=== PATIENT | female | born 1940 | race Caucasian/White ===

== ENCOUNTER → 2018-03-15 10:00 | Outpatient (CLI) | payer MEDICARE, SELFPAY | PROVIDERS: PCP Student in an Organized Health Care Education/Training Program; Visit Provider Nurse Practitioner Gerontology | DX: N31.9 Neuromuscular dysfunction of bladder, unspecified (principal); I10 Essential (primary) hypertension | CPT/HCPCS: 51705; 99213 ==

== ENCOUNTER → 2018-04-26 09:55 | Outpatient (BNVA) | payer MEDICARE, SELFPAY | PROVIDERS: Visit Provider Nurse Practitioner Gerontology | DX: N31.9 Neuromuscular dysfunction of bladder, unspecified (principal) | CPT/HCPCS: 51705; 99213 ==

== ENCOUNTER 2018-05-11 08:20 | Inpatient (IN) | payer MEDICARE, SELFPAY ==
[2018-05-11] VITALS (139 sets, daily range): BP systolic 88–142; BP diastolic 41–67; PULSE 59–94; RESP 3–31; TEMP 36.5–37.2; O2SAT 65–100
--- NOTE | 2018-05-11 08:17 | DI.CT_ITS ---
SYMPTOMS/DIAGNOSIS: APHASIA, ? CEREBROVASCULAR ACCIDENT CT BRAIN: Noncontrast examination was performed. There are no priors for comparison. The ventricles and sulci are consistent with the patient's age. There are areas of decreased attenuation in the white matter consistent with small vessel ischemic disease. No acute intracranial hemorrhage, infarct, midline shift or mass effect is identified. There is slight patient motion artifact. The visualized paranasal sinuses are clear. Mastoid air cells are well pneumatized. The calvarium is intact. IMPRESSION: No acute intracranial process. The findings were discussed with the Emergency Department on the date of the examination.
--- NOTE | 2018-05-11 09:00 | ED.GENADUL_ITS ---
Discharge Plan Disposition Condition: Good Discharge Details Chief Complaint: CVA/TIA Reason For Visit: ACUTE MENTAL STATUS CHANGE;UTI;R/O CVA Admit Date/Time: 05/11/18 18:20 Admit Provider: Wild Ledezma Attending Provider: Wild Ledezma Primary Care Provider: Opal Dejesus ED Provider: Rachel Elder Discharge Instructions Activity:: Activity as Tolerated Equipment/Supplies:: No Equipment Needed Diet:: Low Sodium Discharge Orders Discharge Orders: Discharge Order (Routine); Ordered 05/13/18 Ordered By: Patrica Patel Discharge Data Discharge Date/Time-TO BE ENTERED AT DEPARTURE: 05/11/18 20:05 Medical Decision Making Eva Bonilla is a 77 y/o woman with h/o MS and neurogenic bladder with suprapubic catheterwho presented to the emergency department with altered mental status since last night. On my exam Pt is somnolent but arouses to voice and gives mostly appropriate answers to questions. Motor is 1/5 throughout on my exam, however her states that she has moved both arms several times this morning. Concern for CVA vs infection vs metabolic/electrolyte disturbance vs other. Paricular concern for UTI given 's report that Pt had same symptoms with UTI in the past. Doubt meningitis. Exam/hx not c/w PE, ACS, acute aortic pathology. Plan for EKG, CT head, UA, CXR, screening labs, IVF, telemetry. Will monitor and reassess. UA concerning for infection. Will treat with broad spectrum abx at this time. Pt with mild improvement in symptoms, stays awake for longer and using full sentences when speaking to family. Continues to be excessively somnolent. Plan for admission for further eval/treatment, stroke eval. No beds available at [facility]. Contacted [facility], [facility], [place], [place], [place], [facility], [place], [facility] [place] [facility], [facility]. Refusal at all hospitals 2/2 no appropriate bed availability. Pt accepted at [facility], awaiting bed assignment. While awaiting bed assignment at [facility], bed became available here. Clinical Impression: UTI, AMS Disposition: [facility] inpatient Medical Records Medical records reviewed: Yes I reviewed the patient's medical records. Imaging Data Radiologic Study: Attestation: I personally reviewed and interpreted this imaging study as follows: Radiologist's impression: CHEST X-RAY, PORTABLE AP VIEW: No priors. The heart size and pulmonary vasculature are within normal limits. No focal infiltrates, effusions or pneumothoraces are identified. Degenerative changes are seen in the shoulders bilaterally and the thoracic spine. IMPRESSION: No definite acute pulmonary process. CT head negative per verbal report from radiology Lab Data Lab results reviewed: Yes I reviewed the patient's lab results. ECG Data Attestation: I personally reviewed and interpreted this ECG (s) as follows: Interpretation: NSR at 71 with nl axis, no acute ischemic changes, no STEMI, non -diagnostic EKG HPI General Mode of arrival: EMS . Date/Time Provider Initiated Documentation: 05/11/18 08:31 . Limitations to Documentation: altered mental status . Information obtained by: patient, family, RN notes reviewed and old records reviewed . HPI Narrative: Eva Bonilla is a 77 y/o woman with h/o multiple sclerosis, neurogenic bladder with suprapubic catheter who presents to the emergency department with altered mental status. Her accompanies her, and he reports that Pt is wheelchair bound at baseline, but uses her arms without issue and has no cognitive deficit. He reports that last night around 6 or 7pm Pt became atypically sleep for her and was less responsive during conversation. When he awoke this morning, Pt's symptoms had worsened, where she was falling asleep quickly and giving one word answers to questions. This is her state at presentation to the ED. She denies pain or any other symptoms, but is altered and cannot provide other history. reports that Pt seemed to be moving arms equally before bed last night after her symptoms had started. He notes that in the past she had similar symptoms 2/2 UTI. Prior to last evening she was in her usual state of health. Eating and drinking normally, no recent travel , no recent illnesses. Related Data Home Medications Medication Instructions Recorded Confirmed ascorbic acid (vitamin C) 500 mg PO BID 11/11/12 05/19/18 [id number] C-Mn 1 ea PO BID cap 11/28/13 05/19/18 [Glucosamine 1500 Complex] Protien Powder 2 tbs PO TID 04/09/17 05/19/18 aspirin 325 mg PO HS 05/11/18 05/19/18 baclofen 30 mg PO TID 05/11/18 05/19/18 cyanocobalamin (vitamin B-12) 1,000 mg PO DAILY 05/11/18 05/19/18 [Vitamin B-12] docusate sodium [Colace] 300 mg PO HS 05/11/18 05/19/18 furosemide 20 mg PO DAILY@1200 05/11/18 05/19/18 gabapentin 100 mg PO BID 05/11/18 05/19/18 gabapentin 200 mg PO HS 05/11/18 05/19/18 multivitamin 1 tab PO DAILY 05/11/18 05/19/18 oxybutynin chloride 15 mg PO HS 05/11/18 05/19/18 pravastatin 20 g PO HS 05/11/18 05/19/18 Lactobacillus acidophilus 1,000 mmu cells PO TID #90 cap 05/13/18 05/19/18 calcium carbonate-vitamin D3 1 tab PO BID 05/13/18 05/19/18 [Caltrate 600 + D] metoprolol tartrate 12.5 mg PO BID #30 tab 05/13/18 05/19/18 Previous Rx's Medication Instructions Recorded Lactobacillus acidophilus 1,000 mmu cells PO TID #90 cap 05/13/18 metoprolol tartrate 12.5 mg PO BID #30 tab 05/13/18 Allergies Allergy/AdvReac Type Severity Reaction Status Date / Time lisinopril AdvReac Severe cough/wheez Verified 05/19/18 10:13 ing Iodine and Iodide Containing AdvReac Intermediate redness Verified 05/19/18 10: 13 Produc pregabalin [From Lyrica] AdvReac whoosy Verified 05/19/18 10:13 reported 04/2017 iodine Allergy Uncoded 05/19/18 10:13 Review of Systems Review of Systems Pt cannot provide ROS 2/2 altered mental status. ROS are per her : Constitutional: denies fevers Eyes: denies eye pain ENT: denies facial pain, dental pain, sore throat Cardiovascular: denies chest pain, edema Respiratory: denies SOB, cough GI: denies abdominal pain, vomiting, diarrhea : denies flank pain MSK: denies back pain, neck pain, arthralgias, myalgias Skin: denies rash Neuro: denies headaches, lightheadedness, weakness Unobtainable due to mental condition PFSH Family History Mother Congestive heart failure Father Meningitis Paternal Grandmother Breast cancer Sister Skin cancer (melanoma) Medical History Hypertension (Chronic) Multiple sclerosis (Chronic) Tubular adenoma (Acute) Hyperlipemia (Acute) Social History household members: spouse lives independently: Yes number of children: 2 current occupational status: retired Smoking/Tobacco Use Status: Never alcohol intake: never substance use type: does not use seatbelt use: always water heater temp set < 120 deg: Yes working smoke detector in home: Yes fire extinguisher in home: Yes carbon monox detector in home: Yes firearms in home: Yes Surgical History incision and drainage (03/23/18) Exam Narrative Exam Narrative: Constitutional: somewhat ill-appearing, somnolent but arouses easily to voice, pleasant when awoken HENT: head atraumatic, normocephalic normal inspection, mucous membranes moist Eyes: conjunctiva normal, sclera normal, pupils 3mm b/l Neck: no stridor, normal ROM, trachea midline Chest: normal inspection Resp: normal work of breathing, LCTAB Cardio: normal rate, normal rhythm, no murmur appreciated GI: abdomen soft, non-tender, non-distended. suprapubic catheter in place, no erythema or surrounding drainage Back: normal inspection, no rash Skin: warm, dry, normal color, no rash Neuro: somnolent, arouses to voice, does not follow commands, responds to questions with one word answers or simple sentences before falling asleep. Gag intact. Motor 1/5 throughout. Ext: no edema Course Lab/Test Results Lab/Test Results: 05/11/18 08:53 Blood Blood Culture - Pending 05/11/18 08:53 Blood Blood Culture - Pending
[2018-05-11 09:04] LABS: Abs Immature Grans 0.03 k/cumm (0.0-0.09); Absolute Lymphocyte Count 1.14 k/cumm (1.2-3.4); Absolute Monocyte Count 1.14 k/cumm (0.11-0.7); Basophils % 0.2; HCT 40.8 % (36.0-46.0); HGB 13.3 g/dL (12.0-15.5); Immature Grans % 0.2; Lymphocytes % 6.3; Mean Corp. HGB Concentration 32.6 g/dL (32.0-36.0); Mean Corpuscular Hemoglobin 30.5 pg (27.0-33.0); Mean Corpuscular Volume 93.6 fL (80-95); Mean Platelet Volume 10.7 fL (8.0-11.0); Monocytes % 6.3; Platelet Count 231 x1000/uL (130-400); RBC 4.36 m/cumm (4.00-5.20); White Blood Cell Count 18.16 k/cumm (4.4-10.8)
[2018-05-11 09:12] LABS: Absolute Basophil Count 0.04 k/cumm (0.0-0.2)
[2018-05-11 09:15] LABS: Prothrombin Time 10.1 sec (9.3-10.8)
[2018-05-11 09:28] LABS: ALT 20 U/L (12-78); AST 22 U/L (15-37); Albumin 2.9 g/dL (3.4-5.0); Alkaline Phosphatase 110 U/L (46-116); BUN 17 mg/dL (7-18); Bilirubin, Total 0.4 mg/dL (0.2-1.0); CREATININE 1.24 mg/dL (0.55-1.02); Calcium 9.1 mg/dL (8.5-10.1); Chloride 103 mmol/L (98-107); Estimated GFR 41.94 (mL/min/1.73m2); Glucose 135 mg/dL (70-100); Sodium 141 mmol/L (136-145); Total Protein 6.6 g/dL (6.4-8.2); Troponin I < 0.02 ng/mL (0.00-0.06)
[2018-05-11 09:31] LABS: TSH (W/Ref FT4) 0.76 uIU/mL (0.358-3.74)
[2018-05-11 09:32] LABS: Bilirubin Negative (Negative); Blood Moderate (Negative); Clarity Cloudy; Glucose Negative (Negative); Ketones Negative (Negative); Leukocyte Esterase Small (Negative); Nitrite Negative (Negative); Specific Gravity 1.025 (1.005-1.025); Urobilinogen 0.2 EU/dL (Up TO 0.2); pH 5.5 (5-8)
--- NOTE | 2018-05-11 09:38 | DI.RAD_ITS ---
SYMPTOMS/DIAGNOSIS: ALTERED MENTAL STATE CHEST X-RAY, PORTABLE AP VIEW: No priors. The heart size and pulmonary vasculature are within normal limits. No focal infiltrates, effusions or pneumothoraces are identified. Degenerative changes are seen in the shoulders bilaterally and the thoracic spine. IMPRESSION: No definite acute pulmonary process.
[2018-05-11 09:40] LABS: WBC >50 HPF (0-5)
[2018-05-11 09:41] LABS: Bacteria Packed HPF (Negative); C & S Indicated? Yes
[2018-05-11] MEDS: CEFEPIME 2 GM in Normal Saline 100 ML IVPB (09:50)
[2018-05-11] MEDS: Normal Saline 500 ML IV (10:53)
[2018-05-11] MEDS: VANCOMYCIN 1,500 MG in Normal Saline 500 ML 333.3333 MG IVPB (11:00)
[2018-05-11] MEDS: Normal Saline 1,000 ML 150 ML IV (18:15)
[2018-05-11 19:10] LABS: Lactate-non-spesis 0.7 mmol/L (0.6-1.4)
[2018-05-11] MEDS: Lactated Ringers 1,000 ML 100 ML IV (21:03)
--- NOTE | 2018-05-11 21:04 | W.PM.HP.N ---
Date of service: 05/11/18 Time of Service: 21:04 Assessment and Plan (1) UTI (urinary tract infection): Current visit: Yes Status: Acute Continue vancomycin and cefepime started in the emergency room. Check urine and blood culture results of modified antibiotics based on culture sensitivities. I will asked Dr. Cancino to see the patient in the morning to change out her suprapubic catheter. (2) Neurogenic bladder: Current visit: Yes Status: Chronic Consult with urologist, Dr. Jose Martin Cancino, in the morning to change out suprapubic catheter. (3) Change in mental status: Current visit: Yes Status: Acute Her mental status appears to be improving over the course of today since initiation of IV fluids and antibiotics. I suspect that she had impending sepsis from UTI. Her elevated lactate is already resolved. His lungs are mental status continues to improve overnight back to her baseline and I do not feel that MRI is necessary. However if any doubt remains as to whether or not she had a TIA or CVA then performing an MRI of the brain is an option to document any cerebrovascular event. Since it does not appear clinically that she had a CVA I have not ordered other studies such as echocardiogram or carotid Doppler at this point. History of Present Illness Chief Complaint: acute mental status change Narrative: 77-year-old female with a past medical history of multiple sclerosis leading to neurogenic bladder requiring suprapubic catheter presents emergency department with acute mental status change that began last night and continued into this morning. History is obtained from review of the chart as well as my conversation with Dr. Pato Elder, emergency room physician. Patient cannot give an accurate history and her family is no longer present. According to Dr. Elder the patient had been in her usual state of health until around 6 or 7 PM last night when her noticed that she was much more sleepy but she was arousable however this morning patient was not able to answer the appropriately and was very difficult to arouse. According to Dr. Elder she was able to awaken the patient the patient would give simple 1 word answers but then drifts back to sleep and not able to follow any commands. According to Dr. Elder the patient's normally nonambulatory because of her multiple sclerosis causing her loss of the use of her lower extremities as well as her neurogenic bladder. However normally the patient has use of both upper extremities and according to Dr. Elder she was flaccid. Workup for possible CVA was performed including a noncontrast CT scan of her head which showed no acute changes but shows small vessel white matter abnormalities consistent with small vessel ischemic changes. Laboratory workup revealed a leukocytosis of 18,000, mild elevation in her blood lactate at 2.0. And a mild elevation in her serum creatinine at 1.24. Her urinalysis demonstrated proteinuria, pyuria, hematuria. Chest x-ray showed no acute cardiopulmonary abnormalities. Treatment in the emergency room include obtaining blood and urine cultures and initiation of parenteral antibiotics including cefepime and vancomycin. Patient is now admitted for IV fluids and parenteral antibiotics along with frequent monitoring of her vital signs and neurologic status. Initially it was felt that she may require further stroke workup including MRI scan of the brain in the morning however the patient is much more coherent this evening and shows no focal facial motor deficits nor any upper extremity motor deficits. Review of Systems Review of Systems Unobtainable due to mental status (Although the patient is now more coherent and able to give me simple answers she is not oriented to person place or circumstance and she gives inappropriate answers to my questions. She seems to perseverate on certain words or phrases.) [facility] Family History Mother Congestive heart failure Father Meningitis Paternal Grandmother Breast cancer Sister Skin cancer (melanoma) Medical History Hypertension (Chronic) Multiple sclerosis (Chronic) Tubular adenoma (Acute) Hyperlipemia (Acute) Social History household members: spouse lives independently: Yes number of children: 2 current occupational status: retired Smoking/Tobacco Use Status: Never alcohol intake: never substance use type: does not use seatbelt use: always water heater temp set < 120 deg: Yes working smoke detector in home: Yes fire extinguisher in home: Yes carbon monox detector in home: Yes firearms in home: Yes Surgical History incision and drainage (03/23/18) Meds Home Medications Medication Instructions Recorded Confirmed Type ascorbic acid (vitamin C) 500 mg PO BID 11/11/12 04/26/18 History aspirin 325 mg PO DAILY tab 11/11/12 04/26/18 History baclofen 30 mg PO TID 11/11/12 04/26/18 History cyanocobalamin (vitamin B-12) 1,000 mcg PO DAILY 11/11/12 04/26/18 History [Vitamin B-12] docusate sodium [Colace] 100 mg PO DAILY tab 11/11/12 04/26/18 History multivitamin [Multi-Day] 1 ea PO DAILY 11/11/12 04/26/18 History [id number] C-Mn 1 ea PO BID cap 11/28/13 04/26/18 History [Glucosamine 1500 Complex] Protien Powder 2 tbs PO TID 04/09/17 04/26/18 History gabapentin [Neurontin] 100 mg PO TID PRN #90 tab 04/09/17 04/26/18 History oxybutynin chloride 15 mg PO DAILY #90 tab-cap 09/07/17 04/26/18 Rx furosemide 20 mg PO DAILY #90 tab 11/05/17 04/26/18 Rx pravastatin 20 mg PO DAILY #90 tab 03/25/18 04/26/18 Rx oxycodone 5 mg tablet 5 mg PO PRN tab 04/28/18 History ascorbic acid (vitamin C) [Vitamin 2,000 mg PO DAILY 05/11/18 05/11/18 History C] aspirin 325 mg PO DAILY 05/11/18 05/11/18 History baclofen 30 mg PO TID 05/11/18 05/11/18 History calcium carbonate [Calcium 600] 1 tab PO DAILY 05/11/18 05/11/18 History cyanocobalamin (vitamin B-12) 1,000 mg PO DAILY 05/11/18 05/11/18 History [Vitamin B-12] docusate sodium [Colace] 100 mg PO DAILY 05/11/18 05/11/18 History furosemide 20 mg PO DAILY 05/11/18 05/11/18 History gabapentin 100 mg PO BID 05/11/18 05/11/18 History gabapentin 200 mg PO .QHS 05/11/18 05/11/18 History glucosamine sulfate [Glucosamine] 3,000 mg PO DAILY 05/11/18 05/11/18 History multivitamin 1 tab PO DAILY 05/11/18 05/11/18 History oxybutynin chloride 15 mg PO DAILY 05/11/18 05/11/18 History pravastatin 20 g PO DAILY 05/11/18 05/11/18 History Allergies Allergy/AdvReac Type Severity Reaction Status Date / Time lisinopril AdvReac Severe cough/wheez Verified 05/11/18 10:12 ing Iodine and Iodide Containing AdvReac Intermediate redness Verified 05/11/18 10:12 Produc pregabalin [From Lyrica] AdvReac whoosy Verified 05/11/18 10:12 reported 04/2017 iodine Allergy Uncoded 05/11/18 10:12 Exam Const General: healthy appearing, no acute distress, well developed and well groomed Nutritional Appearance: well nourished Orientation: alert, awake, not oriented x3 and confused HENMS Head: normal to inspection Ears: external ears normal General nose exam: external nose normal Face and sinus: normal facial exam Mouth: oral mucosae normal Eyes General: appearance normal, both eyes and all related structures Alignment and Position: alignment normal and position normal Periorbital: periorbital findings normal Eyelids: eyelids normal Conjunctivae: conjunctivae normal Sclera: sclerae normal Cornea: corneas normal Pupils: PERRL EOM: EOM intact bilaterally Neck Neck: normal visual inspection, full ROM, no lymphadenopathy, no meningeal signs and trachea midline Thyroid: thyroid normal Carotids: normal carotid upstroke Lymphatic: no lymphadenopathy noted Resp Effort & Inspection: normal respiratory effort and able to speak in complete sentences Auscultation: clear to auscultation bilaterally Cardio Jugular venous pressure: no JVD Palpation: normal PMI Rate: regular rate Rhythm: regular rhythm Heart Sounds: S1 normal, S2 normal, no murmurs and no rubs Bruits: no abdominal aortic bruits and no carotid bruits Pulses: brachial pulses present, radial pulses present, posterior tibial pulses present, dorsalis pedis pulses present and normal peripheral pulses GI Inspection: normal to inspection Palpation: soft and no hepatosplenomegaly Percussion: normal to percussion Auscultation: normal bowel sounds General: other (Suprapubic catheter present and draining cloudy yellow urine. 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) Motor: strength 5/5 throughout (Normal hand log clerk strength forearm strength in upper arm strength in both arms and hands) Sensory Exam: no sensory deficits noted Extrem General: normal capillary refill Right upper extremity: normal to inspection, full ROM and normal capillary refill Left upper extremity: normal to inspection, full ROM and normal capillary refill Right lower extremity: normal to inspection and normal capillary refill; ROM limited and no edema Left lower extremity: normal to inspection and normal capillary refill; abnormal ROM and no edema Psych Appearance: grossly normal and well kempt Speech and Movement: speech and movement normal Mood: euthymic mood Affect: normal affect Attitude: cooperative Thought Process: loose association and perseverating Thought Content: ideas of reference Results Imaging Chest x-ray: report reviewed (No definite acute pulmonary process) Imaging Studies: Of the brain performed May 11, 2018 at 8:41 AM showed no acute intracranial process. Labs : 05/11/18 08:55 05/11/18 08:55 Laboratory Results - last 24 hr 05/11/18 05/11/18 05/11/18 08:55 08:55 08:55 WBC RBC Hgb Hct MCV MCH MCHC RDW Plt Count MPV Immature Gran % Neutrophils % Lymphocytes % Monocytes % Eosinophils % Basophils % Absolute Neutrophils Absolute Lymphocytes Absolute Monocytes Absolute Eosinophils Absolute Basophils PT 10.1 INR 1.0 Sodium 141 Potassium 4.0 Chloride 103 Carbon Dioxide 28.0 Anion Gap 10.0 BUN 17 Creatinine 1.24 H Estimated GFR/1.73 m2 41.94 Glucose 135 H Lactate 2.0 H Calcium 9.1 Total Bilirubin 0.4 AST 22 ALT 20 Alkaline Phosphatase 110 Troponin I < 0.02 Total Protein 6.6 Albumin 2.9 L TSH Urine Color Urine Clarity Urine pH Ur Specific [place] Urine Protein Urine Ketones Urine Blood Urine Nitrite Urine Bilirubin Urine Urobilinogen Ur Leukocyte Esterase Urine RBC Urine WBC Ur Epithelial Cells Urine Crystals Urine Bacteria Urine Mucus Ur Culture Indicated? Urine Glucose 05/11/18 05/11/18 05/11/18 08:55 08:58 09:25 WBC 18.16 H RBC 4.36 Hgb 13.3 Hct 40.8 MCV 93.6 MCH 30.5 MCHC 32.6 RDW 14.0 Plt Count 231 MPV 10.7 Immature Gran % 0.2 Neutrophils % 87.0 Lymphocytes % 6.3 Monocytes % 6.3 Eosinophils % 0.0 Basophils % 0.2 Absolute Neutrophils 15.80 H Absolute Lymphocytes 1.14 L Absolute Monocytes 1.14 H Absolute Eosinophils 0.00 Absolute Basophils 0.04 PT INR Sodium Potassium Chloride Carbon Dioxide Anion Gap BUN Creatinine Estimated GFR/1.73 m2 Glucose Lactate Calcium Total Bilirubin AST ALT Alkaline Phosphatase Troponin I Total Protein Albumin TSH 0.76 Urine Color Yellow Urine Clarity Cloudy Urine pH 5.5 Ur Specific [place] 1.025 Urine Protein 100 H Urine Ketones Negative Urine Blood Moderate H Urine Nitrite Negative Urine Bilirubin Negative Urine Urobilinogen 0.2 Ur Leukocyte Esterase Small H Urine RBC Not Applicable Urine WBC >50 Ur Epithelial Cells Not Applicable Urine Crystals Not Applicable Urine Bacteria Packed Urine Mucus Not Applicable Ur Culture Indicated? Yes Urine Glucose Negative 05/11/18 19:05 WBC RBC Hgb Hct MCV MCH MCHC RDW Plt Count MPV Immature Gran % Neutrophils % Lymphocytes % Monocytes % Eosinophils % Basophils % Absolute Neutrophils Absolute Lymphocytes Absolute Monocytes Absolute Eosinophils Absolute Basophils PT INR Sodium Potassium Chloride Carbon Dioxide Anion Gap BUN Creatinine Estimated GFR/1.73 m2 Glucose Lactate 0.7 Calcium Total Bilirubin AST ALT Alkaline Phosphatase Troponin I Total Protein Albumin TSH Urine Color Urine Clarity Urine pH Ur Specific [place] Urine Protein Urine Ketones Urine Blood Urine Nitrite Urine Bilirubin Urine Urobilinogen Ur Leukocyte Esterase Urine RBC Urine WBC Ur Epithelial Cells Urine Crystals Urine Bacteria Urine Mucus Ur Culture Indicated? Urine Glucose Last Vital Signs Temp 36.5 C 05/11/18 09:02 Pulse 92 H 05/11/18 19:46 Resp 16 05/11/18 19:50 BP 132/53 L 05/11/18 19:46 Pulse Ox 97 05/11/18 19:50
[2018-05-11] MEDS: Enoxaparin 30 MG/0.3 ML SYR SC (21:16)
[2018-05-12] VITALS (72 sets, daily range): BP systolic 127–167; BP diastolic 52–95; PULSE 81–110; RESP 3–29; TEMP 37.2–38.4; O2SAT 91–99
[2018-05-12] MEDS: CEFEPIME 2 GM in Normal Saline 100 ML IVPB ×2 (00:10→12:47)
--- NOTE | 2018-05-12 07:09 | DI.US_ITS ---
SYMPTOMS/DIAGNOSIS: UTI, INDWELLING SUPRAPUBIC CATHETER, ? PYELONEPHRITIS RENAL ULTRASOUND: There are no prior comparison exams. The kidneys are normal in size and echogenicity and show normal parenchymal thickness. There is no evidence of hydronephrosis or perinephric collection. There is an echogenic focus in the mid right kidney consistent with a nonobstructing stone. There are two questionable small echogenic foci in the left kidney, which could represent vascular calcifications versus nonobstructing calculi. Two small cysts are seen at the upper pole of the left kidney. A Mcbride catheter is present in the bladder. The bladder is empty and not evaluated. IMPRESSION: Nonobstructing stone in the mid right kidney. Question of a few small nonobstructing stones in the mid left kidney. There is no evidence of hydronephrosis.
[2018-05-12 07:28] LABS: Abs Immature Grans 0.03 k/cumm (0.0-0.09); Absolute Basophil Count 0.02 k/cumm (0.0-0.2); Absolute Eosinophil Count 0.03 k/cumm (0.0-0.7); Absolute Monocyte Count 0.56 k/cumm (0.11-0.7); Absolute Neutrophil Count 10.45 k/cumm (1.2-6.7); Basophils % 0.2; Eosinophils % 0.3; HCT 37.5 % (36.0-46.0); HGB 12.2 g/dL (12.0-15.5); Immature Grans % 0.3; Lymphocytes % 4.3; Mean Corp. HGB Concentration 32.5 g/dL (32.0-36.0); Mean Corpuscular Hemoglobin 30.7 pg (27.0-33.0); Mean Corpuscular Volume 94.5 fL (80-95); Mean Platelet Volume 11.4 fL (8.0-11.0); Monocytes % 4.8; Neutrophils % 90.1; Platelet Count 198 x1000/uL (130-400); RBC 3.97 m/cumm (4.00-5.20); RBC Distribution Width 14.2 % (11.7-14.6)
[2018-05-12] MEDS: Lactated Ringers 1,000 ML 100 ML IV (07:35)
[2018-05-12 07:48] LABS: Anion Gap 10.2 mmol/L (3-11); BUN 22 mg/dL (7-18); CO2 24.8 mmol/L (21.0-32.0); CREATININE 0.74 mg/dL (0.55-1.02); Chloride 107 mmol/L (98-107); Glucose 122 mg/dL (70-100); Potassium 3.6 mmol/L (3.5-5.1); Sodium 142 mmol/L (136-145)
[2018-05-12] MEDS: VANCOMYCIN 1,000 MG in Normal Saline 250 ML 166.667 MG IVPB ×2 (08:49→19:44)
[2018-05-12] MEDS: Glucosamine 500 MG CAP 3000 MG PO (09:11)
[2018-05-12] MEDS: Oxybutynin 5 MG TAB 15 MG PO (09:12)
[2018-05-12] MEDS: Aspirin 325 MG TAB PO (09:12)
[2018-05-12] MEDS: Calcium Carbonate 1.5 GM TAB PO (09:12)
[2018-05-12] MEDS: Docusate Sodium 100 MG CAP 300 MG PO (09:13)
[2018-05-12] MEDS: Multivitamin TAB 1 TAB PO (09:14)
[2018-05-12] MEDS: Ascorbic Acid 500 MG TAB 2000 MG PO (09:14)
[2018-05-12] MEDS: Baclofen 10 MG TAB 30 MG PO ×3 (09:15→19:44)
[2018-05-12] MEDS: Gabapentin 100 MG CAP PO ×2 (09:15→15:57)
[2018-05-12] MEDS: Cyanocobalamin 500 MCG TAB 1000 MCG PO (09:15)
--- NOTE | 2018-05-12 09:44 | PHARADMIT ---
Admission Pharmacy Clinical Review ACUTE MENTAL STATUS CHANGE, UTI-?sepsis, R/O CVA Code Status Full Code Current Weight 84.7 kg Renally Cleared and Narrow Therapeutic Index Meds CrCl~44ml/min (Vanco dosing) QTc Value / Action Taken BP Control, Fever BP 150/66 HR 98 Afebrile Electrolytes reviewed lytes ok DVT Prophylaxis Aspirin 325mg daily, Lovenox 325mg Opiate Usage / Scheduled Bowel Regimen Ordered none Plt/SCr for Heparin / Enoxaparin Plt 198 SCr improved 0.74 INR for Warfarin INR 1.0 H/H stable, WBC/Bands H/H 12.2/37.5 WBC 11.60 (down from 18.16) Antibiotic appropriateness Vanco 1500mg x 1 in ED ~ 11am 05/11/18, Cefepime x1 Vanco 1000mg Q12h per kinetics, Cefepime continues renally adjusted Cultures and Sensitivities BC & Urine pending Surgical ABX d/c within 24 hr DM control / Insulin Dosing BG 122 Heart Failure (Check EF%) (CHRISTELLE's, B-Block, Diuretics) none IV to PO Switch Home Meds Reviewed Oxybutynin 15mg daily...should this be XL?...YES, error from home med list, should be XL, fixed but patient did receive one dose of immed.release Home Meds Not Ordered Willie Comments Urology consult-has suprapubic catheter, has Mult.Sclerosis r/o stroke, MRI not ordered, mental status cleared after IV fluids and Anbx Speech consult, PT consult Chest Xray negative
--- NOTE | 2018-05-12 10:26 | PDOC.CMIN ---
Care Management Initial Assess REASON FOR HOSPITALIZATION:: UTI, acute mental status change, R/O CVA PAST MEDICAL HISTORY/PAST SURGICAL HISTORY:: Medical: HTN, MS, tubular adenoma, hyperlipidemia, neurogenic bladder, osteopenia, colon polyps. Surgical: clair cataract removal, hysterectomy, bladder surgery, colonoscopy, cervical rib removal. PREVIOUS FUNCTIONAL STATUS/SOCIAL/FAMILY SUPPORTS:: Eva is 77 yo woman who lives with her Dequan in their home in [place]. They have 2 adult children, 5 grandchildren and 1 great grandchild all of whom live locally. 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 is her primary caregiver and assists with all her ADL's. She does not ambulate and uses w/c to get around. CURRENT FUNCTIONAL STATUS:: She is lying in bed in ICU when CM enters. is present and states she is much improved over yesterday. She easily engages in discussion re plans and is able to answer questions appropriately. ADVANCE DIRECTIVES:: They have document at home and are working on it. Has patient been provided with information about the portal?: Yes Did the patient sign up for the portal?: No CODE STATUS:: Full Code INSURANCE COVERAGE / FINANCIAL ISSUES:: Medicare. AARP CURRENT HOME/COMMUNITY SERVICES/EQUIPMENT:: Just recently started services. Has hospital bed, siderails, raised toilet seat, ramp and w/c for home use. There is walk-in shower. PRIMARY CARE PHYSICIAN:: Oapl Dejesus MD POTENTIAL DISCHARGE NEEDS:: Will need to continue current level of services on d/c. Patient and are pleased with current services. Will also need to follow-upp with PCP as directed. PATIENT/FAMILY EDUCATION NEEDS:: Review d/c instructions re meds and activity levels, Ask me Now discussion. ANTICIPATED BARRIERS TO DISCHARGE:: none identified TRANSPORTATION:: via car with PLAN:: d/c home as per MD with current services from .
--- NOTE | 2018-05-12 11:35 | W.UROLOGYCON ---
Date of service: 05/12/18 Time of Service: 10:00 History of Present Illness Chief Complaint: Neurogenic bladder Narrative: This is a 77-year-old woman who has a history of multiple sclerosis. She was having urinary incontinence. She was treated with a pubovaginal sling and placement of a suprapubic tube. She has been having her the tube changed every 3-4 weeks. Remarkably, she is only had one prior episode of urosepsis. She came into the hospital yesterday with fevers and mental status changes. Her urine cultures and blood cultures are still pending. She has clinically improved with antibiotics and hydration. We have been asked to change her catheter while she is here [facility] Family History Mother Congestive heart failure Father Meningitis Paternal Grandmother Breast cancer Sister Skin cancer (melanoma) Medical History Hypertension (Chronic) Multiple sclerosis (Chronic) Tubular adenoma (Acute) Hyperlipemia (Acute) Social History household members: spouse lives independently: Yes number of children: 2 current occupational status: retired Smoking/Tobacco Use Status: Never alcohol intake: never substance use type: does not use seatbelt use: always water heater temp set < 120 deg: Yes working smoke detector in home: Yes fire extinguisher in home: Yes carbon monox detector in home: Yes firearms in home: Yes Surgical History incision and drainage (03/23/18) Exam Narrative Exam Narrative: The patient was seen in the intensive care unit. Her indwelling suprapubic tube was removed. The abdomen was prepped and a new 16 Romansh catheter was passed through the suprapubic tract into the bladder. The catheter balloon was inflated with 10 cc of sterile water. The catheter was hooked to gravity drainage. The patient tolerated this procedure well. Results Last Vital Signs Temp 37.4 C 05/12/18 08:30 Pulse 97 H 05/12/18 08:30 Resp 19 05/12/18 08:30 BP 160/72 H 05/12/18 08:30 Pulse Ox 97 05/12/18 08:30 Labs : 05/12/18 06:15 05/12/18 06:15 Laboratory Results - last 24 hr 05/11/18 05/12/18 05/12/18 19:05 06:15 06:15 WBC 11.60 H D RBC 3.97 L Hgb 12.2 Hct 37.5 MCV 94.5 MCH 30.7 MCHC 32.5 RDW 14.2 Plt Count 198 MPV 11.4 H Immature Gran % 0.3 Neutrophils % 90.1 Lymphocytes % 4.3 Monocytes % 4.8 Eosinophils % 0.3 Basophils % 0.2 Absolute Neutrophils 10.45 H Absolute Lymphocytes 0.50 L Absolute Monocytes 0.56 Absolute Eosinophils 0.03 Absolute Basophils 0.02 Sodium 142 Potassium 3.6 Chloride 107 Carbon Dioxide 24.8 Anion Gap 10.2 BUN 22 H Creatinine 0.74 D Estimated GFR/1.73 m2 >= 60.00 Glucose 122 H Lactate 0.7 Calcium 8.0 L Magnesium 2.0 Assessment and Plan (1) Neurogenic bladder: Current visit: Yes Status: Chronic We will continue to change her catheter every 3-4 weeks.
--- NOTE | 2018-05-12 11:47 | W.SPEECHEVAL ---
Date of service: 05/12/18 Time of Service: 10:45 Speech Therapy Evaluation Note: Referring Provider: Dr. Chang BACKGROUND: This is a 77-year-old right-handed female who presented to the ED from home on 05/12/18 with a change in mental status. She was subsequently admitted to the ICU for further care of the effects of a UTI. A chest x-ray was done while she was in the ED which showed no acute findings. PMH is positive for the following: Multiple Sclerosis, HTN, hyperlipidemia, tubular adenoma. The patient's is in the room during this visit and both he and his are able to provide additional background information with regard to p.o. consistencies tolerated in the weeks prior to this admission. They state that she was able to tolerate what, by description, are Thin liquids, a Dysphagia Advanced diet with chopped meats, and multiple whole pills taken at one time with a liquid wash. OBJECTIVE: Nursing reports the followin. Lung sounds CTA-B in the presence of ABX 2. Temp: 37.4 3. O2 sat:94-97% on room air The patient is awake and reclined in bed. She is amenable to having me work with her this morning and allows me to elevate the head of her bed. She is able to converse well using good syntax and shows no difficulty with word-finding. However, it is apparent that she still has a degree of confusion as she sometimes makes off-topic comments and answers questions with unrelated responses. Her states that this is new with this admission and is similar to what occurred one other time when she was hospitalized for an infection. She is A & O x 1 (person) and able to follow basic 2-step directions with delayed responses. Oral Sensorimotor Exam The patient is totally edentulous and has both a full upper and full lower denture. Her states that the dentures are roughly 3 years old. She feels that they fit well and denies any having any sore spots. She does not need to use denture adhesive for added stability. Oral sensation was unable to be assessed due to the patient's confusion and difficulty with following directions. The patient shows no facial droop. Motorically, her smile is symmetrical as are forehead wrinkles. No lingual deviation on protrusion is seen in a setting of good excursion. Lingual lateralization is within normal limits bilaterally as are lingual rapid alternating movements. Lingual strength is within normal limits bilaterally. Mandibular lateralization is within normal limits bilaterally. Velopharyngeal elevation is strong and symmetrical. Volitional cough and throat-clear are both within normal limits. Speech intelligibility to this unfamiliar listener in a setting of mild background noise is 100% despite mildly decreased vocal intensity. Vocal quality is within normal limits. Regarding swallowing, the following is noted: I Liquids A. Honey-thick: Good bolus control and posterior oral transit. No mark anthony signs and symptoms of aspiration or penetration are seen. Oral clearance is 100% and no oral escape is seen. B. [place]-thick: Results are the same as for Honey-thick liquids. C. Thin: Results are the same as for Honey-thick liquids. These results are true for both single and consecutive swallows by both cup and straw. II Foods A. Puree: Good bolus control and linguopalatal bolus compression. Posterior oral transit is within normal limits. No mark anthony signs and symptoms of aspiration or penetration are seen. Oral clearance is 100% and no oral escape is noted. B. Mechanically Altered: Good mastication quality. Bolus control and posterior oral transit are within normal limits. No mark anthony signs and symptoms of aspiration or penetration are seen. Oral clearance is 100% and no oral escape is noted. C. Dysphagia Advanced: Increased mastication time for this consistency is used but this does result in good mastication quality. Bolus control and posterior oral transit appear to be within normal limits. No mark anthony signs and symptoms of aspiration or penetration are seen. Oral clearance is 100% and no oral escape is noted. III Pills are not assessed at this visit but nursing reports good toleration of whole pills with a liquid wash this morning. INTERPRETATION: The patient shows a mild oral?prep dysphagia secondary to having both full upper and lower dentures. No signs of pharyngeal dysphasia are evident. RECOMMENDATIONS: 1. Changed from a Mechanically Altered diet to a Dysphagia Advanced diet with moistened chopped meats. 2. Change from [place]-thick liquids to Thin liquids. 3. Supervised self-feeding with assist as needed. 4. No speech therapy indicated at this time. Thank you for referring this patient. Odell Samano., [facility]
--- NOTE | 2018-05-12 12:13 | EVALE_ITS ---
Date of service: 05/12/18 Time of Service: 10:45 Speech Therapy Evaluation Note: Referring Provider: Dr. Chang BACKGROUND: This is a 77-year-old right-handed female who presented to the ED from home on 05/12/18 with a change in mental status. She was subsequently admitted to the ICU for further care of the effects of a UTI. A chest x-ray was done while she was in the ED which showed no acute findings. PMH is positive for the following: Multiple Sclerosis, HTN, hyperlipidemia, tubular adenoma. The patient's is in the room during this visit and both he and his are able to provide additional background information with regard to p.o. consistencies tolerated in the weeks prior to this admission. They state that she was able to tolerate what, by description, are Thin liquids, a Dysphagia Advanced diet with chopped meats, and multiple whole pills taken at one time with a liquid wash. OBJECTIVE: Nursing reports the followin. Lung sounds CTA-B in the presence of ABX 2. Temp: 37.4 3. O2 sat:94-97% on room air The patient is awake and reclined in bed. She is amenable to having me work with her this morning and allows me to elevate the head of her bed. She is able to converse well using good syntax and shows no difficulty with word- finding. However, it is apparent that she still has a degree of confusion as she sometimes makes off-topic comments and answers questions with unrelated responses. Her states that this is new with this admission and is similar to what occurred one other time when she was hospitalized for an infection. She is A & O x 1 (person) and able to follow basic 2-step directions with delayed responses. Oral Sensorimotor Exam The patient is totally edentulous and has both a full upper and full lower denture. Her states that the dentures are roughly 3 years old. She feels that they fit well and denies any having any sore spots. She does not need to use denture adhesive for added stability. Oral sensation was unable to be assessed due to the patient's confusion and difficulty with following directions. The patient shows no facial droop. Motorically, her smile is symmetrical as are forehead wrinkles. No lingual deviation on protrusion is seen in a setting of good excursion. Lingual lateralization is within normal limits bilaterally as are lingual rapid alternating movements. Lingual strength is within normal limits bilaterally. Mandibular lateralization is within normal limits bilaterally. Velopharyngeal elevation is strong and symmetrical. Volitional cough and throat-clear are both within normal limits. Speech intelligibility to this unfamiliar listener in a setting of mild background noise is 100% despite mildly decreased vocal intensity. Vocal quality is within normal limits. Regarding swallowing, the following is noted: I Liquids A. Honey-thick: Good bolus control and posterior oral transit. No mark anthony signs and symptoms of aspiration or penetration are seen. Oral clearance is 100 % and no oral escape is seen. B. [place]-thick: Results are the same as for Honey-thick liquids. C. Thin: Results are the same as for Honey-thick liquids. These results are true for both single and consecutive swallows by both cup and straw. II Foods A. Puree: Good bolus control and linguopalatal bolus compression. Posterior oral transit is within normal limits. No mark anthony signs and symptoms of aspiration or penetration are seen. Oral clearance is 100% and no oral escape is noted. B. Mechanically Altered: Good mastication quality. Bolus control and posterior oral transit are within normal limits. No mark anthony signs and symptoms of aspiration or penetration are seen. Oral clearance is 100% and no oral escape is noted. C. Dysphagia Advanced: Increased mastication time for this consistency is used but this does result in good mastication quality. Bolus control and posterior oral transit appear to be within normal limits. No mark anthony signs and symptoms of aspiration or penetration are seen. Oral clearance is 100% and no oral escape is noted. III Pills are not assessed at this visit but nursing reports good toleration of whole pills with a liquid wash this morning. INTERPRETATION: The patient shows a mild oral?prep dysphagia secondary to having both full upper and lower dentures. No signs of pharyngeal dysphasia are evident. RECOMMENDATIONS: 1. Changed from a Mechanically Altered diet to a Dysphagia Advanced diet with moistened chopped meats. 2. Change from [place]-thick liquids to Thin liquids. 3. Supervised self-feeding with assist as needed. 4. No speech therapy indicated at this time. Thank you for referring this patient. Odell Samano., [facility]
--- NOTE | 2018-05-12 12:46 | PGE_ITS ---
May 12, 2018 - Progress Note Assessment/Plan: 1) Urinary tract infection P0A with sepsis due to indwelling suprapubic catheter an d nephrolithiasis 2) Toxic metabolic encephalopathy, no evidence of CVA. 3) Multiple sclerosis with neurogenic bladder. 4) Hypertension. 5) Ambulatory dysfunction. PLAN: 1) Continue empiric Vancomycin and Cefepime, IV fluids. Consider de-escalating tomorrow. 2) PT/OT. 3) Continue home blood pressure medications. 4) Consider CT with stone protocol. 5) Appreciate Urology help. Subjective: Patient feels better. Per , her thinking is clearer. She does have chills. She complains of her usual numbness of right pinkie toe. Denies dizziness, chest pain, shortness of breath, nausea or vomiting. Suprapubic catheter changed today. Objective: Vital signs - temperature 38.4, blood pressure 160/72, pulse 102, respiratory rate 18, O 2 saturation 96% on room air. Alert and oriented. Having chills. Extraocular movements are intact. Dry mucous membranes Heart regular rate and rhythm, tachycardic. Lungs - clear to auscultation bilaterally, diminished at the bases. Abdomen - soft, nontender, nondistended. Extremities - left lower extremity edema, 2+, chronic. Right lower extremity with 1+ edema. No cl ubbing or cyanosis. Laboratory data - white count 11.6, HGB 12.3, HCT 37.5, platelet count 198,000. Chemistry - sodium 142, potassium 3.6, CO2 24.8, chloride 107, creatinine 0.74, BUN 22, GFR greater than 60, lactate 122, magnesium 2.0. Urine culture and sensitivity - gram negative rods, gram positive latrice, mixed.
--- NOTE | 2018-05-12 13:58 | PT.INIE ---
Date of service: 05/12/18 Time of Service: 13:58 PT Notes Date: 05/12/18 Referring Doctor: Patrica Patel PT Orders: PT Consult, MS, weakness on presentation. Precautions: Fall precautions Patient Profile/Admitting Diagnosis: Pt. is a 77 year old female admitted urinary tract infection and weakness in upper extremities PMHX: multiple sclerosis with complete LE paraparesis, neurogenic bladder with a chronic suprapubic catheter, hypertension, hyperlipidemia, bilateral cataracts, hysterectomy, bladder surgery, colonoscopy, cervical rib removal, tubular adenoma Social History/Home Situation: Pt. lives with in a home. Patient requires total assistance from for dressing,bathing, bed mobility, and transfers into and out of electric wheelchair. lifts her into/out of chair. Patient states she is able to eat by herself and helps her with cooking. Equipment owned/DME: electric wheelchair, electric scooter, FWW, commode, grab bars in shower, shower chair, raised toilet SUBJECTIVE: Pt. was lying in bed, agreeable to PT Consult, states she feels her arm strength has returned. is present and willing to perform bed to wheelchair transfers to demonstrate how he assists her at home. OBJECTIVE General Observation: tam catheter, IV R UE, telemetry Mental Status: A&Ox3 Pain: no c/o ROM: RUE: AAROM WNL L UE: AAROM WNL STRENGTH: R UE: 4/5 WNL throughout L UE: 4/5 WNL throughout R LE: 0/5 throughout LLE: 0/5 throughout BED MOBILITY/TRANSFERS: Supine-sit: HOB 30 MaxAx1 by Sit-stand: unable due to LE paraparesis Stand-sit: unable Bed-chair: Dependent lift by - maxA Chair-bed: dependent lift by - maxA GAIT: Unable - baseline nonambulatory BALANCE: Static sitting: good Dynamic Sitting: good Static Standing: unable Dynamic Standing: unable INFORMED CONSENT/EDUCATION: Pt instructed in purpose of Pt Consult and verbalized agreement. [facility] 6 clicks Inpatient Short Form: raw score 8 standardized score 28.58 CMS score 86.62% and CMS modifier ASSESSMENT: Pt. is a 77 year old female admitted urinary tract infection and weakness in upper extremities in setting of multiple sclerosis with complete LE paraparesis, neurogenic bladder with a chronic suprapubic catheter. Patient is at her baseline level of functional mobility, dependent with bed mobility and transfers. present at time of evaluation and demonstrated independence with assisting patient with bed transfers and transfers to/from wheelchair, pt is dependent maxA due to LE paraparesis but demonstrated good upper body strength to be able to assist with transfers and positioning. Pt is not in need of skilled therapy intervention at this time as she is at her baseline level of function. Recommend discharge to home with when medically cleared. Impairment level AMAPC score CMS score 86.62% Pt is a high complexity [id number] history: see above examination: see above status: stable decision making: AMAPC score CMS score 86.62% GOALS Not applicable PLAN OF CARE/TREATMENT PLAN: PT Eval only DISCHARGE RECOMMENDATIONS Home with TREATMENT TIME/MINUTES/CODES 25min IE 1358 G codes in the area of walking, mobility and moving around current status GP [id number], projected status GP [id number] with discharge status [id number] based on AMAPC score CMS score 86.62% Meaghan Thomas PT
--- NOTE | 2018-05-12 14:11 | IN_ITS ---
Date of service: 05/12/18 Time of Service: 13:58 PT Notes Date: 05/12/18 Referring Doctor: Patrica Patel PT Orders: PT Consult, MS, weakness on presentation. Precautions: Fall precautions Patient Profile/Admitting Diagnosis: Pt. is a 77 year old female admitted urinary tract infection and weakness in upper extremities PMHX: multiple sclerosis with complete LE paraparesis, neurogenic bladder with a chronic suprapubic catheter, hypertension, hyperlipidemia, bilateral cataracts , hysterectomy, bladder surgery, colonoscopy, cervical rib removal, tubular adenoma Social History/Home Situation: Pt. lives with in a home. Patient requires total assistance from for dressing,bathing, bed mobility, and transfers into and out of electric wheelchair. lifts her into/out of chair. Patient states she is able to eat by herself and helps her with cooking. Equipment owned/DME: electric wheelchair, electric scooter, FWW, commode, grab bars in shower, shower chair, raised toilet SUBJECTIVE: Pt. was lying in bed, agreeable to PT Consult, states she feels her arm strength has returned. is present and willing to perform bed to wheelchair transfers to demonstrate how he assists her at home. OBJECTIVE General Observation: tam catheter, IV R UE, telemetry Mental Status: A&Ox3 Pain: no c/o ROM: RUE: AAROM WNL L UE: AAROM WNL STRENGTH: R UE: 4/5 WNL throughout L UE: 4/5 WNL throughout R LE: 0/5 throughout LLE: 0/5 throughout BED MOBILITY/TRANSFERS: Supine-sit: HOB 30 MaxAx1 by Sit-stand: unable due to LE paraparesis Stand-sit: unable Bed-chair: Dependent lift by - maxA Chair-bed: dependent lift by - maxA GAIT: Unable - baseline nonambulatory BALANCE: Static sitting: good Dynamic Sitting: good Static Standing: unable Dynamic Standing: unable INFORMED CONSENT/EDUCATION: Pt instructed in purpose of Pt Consult and verbalized agreement. [facility] 6 clicks Inpatient Short Form: raw score 8 standardized score 28.58 CMS score 86.62% and CMS modifier ASSESSMENT: Pt. is a 77 year old female admitted urinary tract infection and weakness in upper extremities in setting of multiple sclerosis with complete LE paraparesis, neurogenic bladder with a chronic suprapubic catheter. Patient is at her baseline level of functional mobility, dependent with bed mobility and transfers. present at time of evaluation and demonstrated independence with assisting patient with bed transfers and transfers to/from wheelchair, pt is dependent maxA due to LE paraparesis but demonstrated good upper body strength to be able to assist with transfers and positioning. Pt is not in need of skilled therapy intervention at this time as she is at her baseline level of function. Recommend discharge to home with when medically cleared. Impairment level AMAPC score CMS score 86.62% Pt is a high complexity [id number] history: see above examination: see above status: stable decision making: AMAPC score CMS score 86.62% GOALS Not applicable PLAN OF CARE/TREATMENT PLAN: PT Eval only DISCHARGE RECOMMENDATIONS Home with TREATMENT TIME/MINUTES/CODES 25min IE 1358 G codes in the area of walking, mobility and moving around current status GP [id number], projected status GP [id number] with discharge status [id number] based on AMAPC score CMS score 86.62% Meaghan Thomas PT
--- NOTE | 2018-05-12 14:27 | INITIAL_ITS ---
Care Management Initial Assess REASON FOR HOSPITALIZATION:: UTI, acute mental status change, R/O CVA PAST MEDICAL HISTORY/PAST SURGICAL HISTORY:: Medical: HTN, MS, tubular adenoma, hyperlipidemia, neurogenic bladder, osteopenia, colon polyps. Surgical: clair cataract removal, hysterectomy, bladder surgery, colonoscopy, cervical rib removal. PREVIOUS FUNCTIONAL STATUS/SOCIAL/FAMILY SUPPORTS:: Eva is 77 yo woman who lives with her Dequan in their home in [place]. They have 2 adult children, 5 grandchildren and 1 great grandchild all of whom live locally. 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 is her primary caregiver and assists with all her ADL's. She does not ambulate and uses w/c to get around. CURRENT FUNCTIONAL STATUS:: She is lying in bed in ICU when CM enters. is present and states she is much improved over yesterday. She easily engages in discussion re plans and is able to answer questions appropriately. ADVANCE DIRECTIVES:: They have document at home and are working on it. Has patient been provided with information about the portal?: Yes Did the patient sign up for the portal?: No CODE STATUS:: Full Code INSURANCE COVERAGE / FINANCIAL ISSUES:: Medicare. [employer] CURRENT HOME/COMMUNITY SERVICES/EQUIPMENT:: Just recently started services. Has hospital bed, siderails, raised toilet seat, ramp and w/c for home use. There is walk-in shower. PRIMARY CARE PHYSICIAN:: Opal Dejesus MD POTENTIAL DISCHARGE NEEDS:: Will need to continue current level of services on d /c. Patient and are pleased with current services. Will also need to follow-upp with PCP as directed. PATIENT/FAMILY EDUCATION NEEDS:: Review d/c instructions re meds and activity levels, Ask me Now discussion. ANTICIPATED BARRIERS TO DISCHARGE:: none identified TRANSPORTATION:: via car with PLAN:: d/c home as per MD with current services from .
[2018-05-12] MEDS: Acetaminophen 325 MG TAB PO ×2 (16:51→21:06)
[2018-05-12] MEDS: Enoxaparin 30 MG/0.3 ML SYR SC (21:05)
[2018-05-12] MEDS: Gabapentin 100 MG CAP 200 MG PO (21:06)
[2018-05-12] MEDS: Pravastatin 20 MG TAB PO (21:06)
[2018-05-13] VITALS (16 sets, daily range): BP systolic 110–174; BP diastolic 47–87; PULSE 73–86; RESP 9–22; TEMP 36.2–36.7; O2SAT 94
[2018-05-13] MEDS: Lactated Ringers 1,000 ML 100 ML IV (00:17)
[2018-05-13] MEDS: CEFEPIME 2 GM in Normal Saline 100 ML IVPB ×2 (00:17→12:41)
[2018-05-13 07:24] LABS: Abs Immature Grans 0.02 k/cumm (0.0-0.09); Absolute Basophil Count 0.02 k/cumm (0.0-0.2); Absolute Eosinophil Count 0.14 k/cumm (0.0-0.7); Absolute Lymphocyte Count 0.84 k/cumm (1.2-3.4); Absolute Monocyte Count 0.42 k/cumm (0.11-0.7); Basophils % 0.3; Eosinophils % 2.2; HCT 36.4 % (36.0-46.0); HGB 11.8 g/dL (12.0-15.5); Immature Grans % 0.3; Lymphocytes % 13.4; Mean Corp. HGB Concentration 32.4 g/dL (32.0-36.0); Mean Corpuscular Hemoglobin 30.4 pg (27.0-33.0); Mean Corpuscular Volume 93.8 fL (80-95); Mean Platelet Volume 10.8 fL (8.0-11.0); Monocytes % 6.7; Neutrophils % 77.1; Platelet Count 171 x1000/uL (130-400); RBC 3.88 m/cumm (4.00-5.20); RBC Distribution Width 14.2 % (11.7-14.6); White Blood Cell Count 6.26 k/cumm (4.4-10.8)
[2018-05-13 07:25] LABS: Absolute Neutrophil Count 4.83 k/cumm (1.2-6.7)
[2018-05-13 07:33] LABS: Anion Gap 8.6 mmol/L (3-11); BUN 16 mg/dL (7-18); CO2 25.4 mmol/L (21.0-32.0); CREATININE 0.72 mg/dL (0.55-1.02); Calcium 8.1 mg/dL (8.5-10.1); Chloride 110 mmol/L (98-107); Glucose 111 mg/dL (70-100); Magnesium 2.1 mg/dL (1.8-2.4); Potassium 3.6 mmol/L (3.5-5.1); Sodium 144 mmol/L (136-145)
[2018-05-13] MEDS: Oxybutynin-CR 5 MG TABCR 15 MG PO (08:57)
[2018-05-13] MEDS: Glucosamine 500 MG CAP 3000 MG PO (08:58)
[2018-05-13] MEDS: VANCOMYCIN 1,000 MG in Normal Saline 250 ML 166.667 MG IVPB (08:58)
[2018-05-13] MEDS: Ascorbic Acid 500 MG TAB 2000 MG PO (08:59)
[2018-05-13] MEDS: Docusate Sodium 100 MG CAP 300 MG PO (09:00)
[2018-05-13] MEDS: Multivitamin TAB 1 TAB PO (09:00)
[2018-05-13] MEDS: Cyanocobalamin 500 MCG TAB 1000 MCG PO (09:01)
[2018-05-13] MEDS: Aspirin 325 MG TAB PO (09:01)
[2018-05-13] MEDS: Calcium Carbonate 1.5 GM TAB PO (09:01)
[2018-05-13] MEDS: Normal Saline Flush 10 ML SYR (09:02)
[2018-05-13] MEDS: Baclofen 10 MG TAB 30 MG PO (09:02)
[2018-05-13] MEDS: Gabapentin 100 MG CAP PO (09:03)
--- NOTE | 2018-05-13 12:28 | W.PM.DS.N ---
Date of service: 05/13/18 Time of Service: 12:28 DS: Diagnosis Discharge Diagnosis (1) Sepsis: Status: Acute (2) UTI (urinary tract infection): Status: Acute Asessment and Plan: Present on admission, associated with indwelling suprapubic catheter, Mixed cx on 05/12/18 (3) Toxic metabolic encephalopathy: Status: Acute (4) Neurogenic bladder: Status: Chronic (5) Multiple sclerosis: Status: Chronic (6) Urinary catheter in place: Status: Chronic (7) Nephrolithiasis: Status: Chronic (8) Ambulatory dysfunction: Status: Acute (9) Nonsustained paroxysmal supraventricular tachycardia: Status: Acute (10) Hypertension: Status: Chronic Discharge Plan Disposition Patient Disposition: HOME Condition: Good Discharge Details Reason For Visit: ACUTE MENTAL STATUS CHANGE;UTI;R/O CVA Admit Date/Time: 05/11/18 18:20 Admit Provider: Wild Ledezma Attending Provider: Wild Ledezma Primary Care Provider: Opal Dejesus Hospital Course Hospital Course: Ms Bonilla is a 77 year old female with past medical history of neurogenic bladder due to MS s/p suprapubic catheter who was admitted to [facility] on 05/11/18 for sepsis due to a UTI associated with her indwelling suprapubic catheter. Her urine culture done on this admission was mixed. Her suprapubic catheter was changed on 05/12/[address] Cancino of urology. Additionally, Ms Bonilla had encephalopathy associated with her UTI which resolved with less than 24 hours of antibiotics. There is no suspicion of CVA. She responded quite well to IV vancomycin and cefepime and IV fluids. She will complete a total of 2 week of antibiotics, being transitioned to oral ceftin on discharge. She had a very short run of non-sustained SVT and is being started on a very low dose of metoprolol on discharge. Her evaluation with physical therapy found her to be at baseline to return home today. The patient and are in agreement. She will need to follow up with her PCP. Additionally, she will have to follow up with Dr Cancino for her newly discovered nonobstructive nephrolithiasis seen on ultrasound of the kidneys. Home Meds and New Rx's Prescriptions: New cefuroxime axetil 500 mg tablet 500 mg PO Q12H 10 Days Qty: 20 RF: 0 Lactobacillus acidophilus capsule 1,000 mmu cells PO TID Qty: 90 RF: 0 metoprolol tartrate 25 mg tablet 12.5 mg PO BID Qty: 30 RF: 0 Continue ascorbic acid (vitamin C) 500 MG tablet 500 mg PO BID RF: 0 [id number] C-Mn [Glucosamine 1500 Complex] 1 EACH capsule 1 ea PO BID RF: 0 protien powder 2 tbs PO TID RF: 0 multivitamin Tablet 1 tab PO DAILY RF: 0 oxybutynin chloride 15 mg Tablet Extended Release 24hr 15 mg PO HS RF: 0 aspirin 325 mg Tablet 325 mg PO HS RF: 0 cyanocobalamin (vitamin B-12) [Vitamin B-12] 1,000 mcg Tablet 1,000 mg PO DAILY RF: 0 baclofen 10 mg Tablet 30 mg PO TID RF: 0 docusate sodium [Colace] 100 mg Capsule 300 mg PO HS RF: 0 pravastatin 20 mg Tablet 20 g PO HS RF: 0 furosemide 20 mg Tablet 20 mg PO DAILY@1200 RF: 0 gabapentin 100 mg Capsule 200 mg PO HS RF: 0 gabapentin 100 mg Capsule 100 mg PO BID RF: 0 calcium carbonate-vitamin D3 [Caltrate 600 + D] 600 mg (1,500 mg)-800 unit Tablet,Chewable 1 tab PO BID RF: 0 Discharge Instructions Instructions: Cefuroxime (By mouth), Catheter-associated Urinary Tract Infection (DC) Additional Instructions: Finish your antibiotics as prescribed. Return to the hospital with any new change in neurologic status, fever, bleeding, chest pain, or shortness of breath. Follow up with your PCP in 5-7 days. Follow-up appointment with Dr. Cancino Urology [facility] regarding renal stone plan of care May 17, 2018 (Wednesday) at 2:30PM Referrals: Jose Martin Cancino MD [ [facility] STAFF PHYSICIAN] - Opal Dejesus DO [Primary Care Provider] - Activity:: Activity as Tolerated Equipment/Supplies:: No Equipment Needed Diet:: Low Sodium Discharge Orders Discharge Orders: Discharge Order (Routine); Ordered 05/13/18 Ordered By: Patrica Patel Exam Narrative Exam Narrative: General: Very pleasant elderly female, comfortable in bed HEENT: EOMI, MMM Heart: RRR, no m/r/g Lungs: CTAB GI: Abdomen soft, nontender, nondistended Extremities: 2+ pitting edema LLE (baseline), 1+ RLE; no clubbing/cyanosis; preserved strength in BUE DS: Data Vitals/I&O Vitals and I&O: Vital Signs Temperature 36.4 C L 05/13/18 08:54 Temperature Source Temporal Artery Scan 05/13/18 08:54 Pulse 79 05/13/18 09:21 Pulse Rhythm Regular 05/12/18 19:15 Pulse 78 05/13/18 10:00 Respiratory Rate 16 05/13/18 10:00 Respiratory Effort Non-Labored 05/13/18 09:14 Respiratory Depth Normal 05/13/18 09:14 Respiratory Pattern Normal 05/13/18 09:14 Blood Pressure 166/74 H 05/13/18 09:21 Blood Pressure Mean 96 05/13/18 09:21 Blood Pressure Position Supine 05/11/18 20:00 Pulse Oximetry 94 L 05/13/18 07:05 Oxygen Delivery Method Room Air 05/13/18 07:05 Oxygen Flow Rate 0 05/13/18 07:05 Pain Level 0 05/13/18 04:43 Comment 05/13/18 04:43 Intake & Output 05/12/18 05/13/18 05/13/18 23:59 11:59 23:59 Intake Total 2735 / 2735 2150 / 2150 Output Total 1400 / 1400 1125 / 1125 Balance 1335 / 1335 1025 / 1025 Weight 86.6 kg Intake: IV 1984 1250 / 1250 Oral 750 / 750 900 / 900 Output: Urine 1400 / 1400 1125 / 1125 Other: Urine Color Yellow Yellow Urine Appearance Clear Clear Sediment Completed studies during hospitalization [Text1]: Urine C&S: mixed CT head 05/11/18; IMPRESSION: No acute intracranial process. CXR 05/11/18: no definite acute pulmonary process US desi 05/12/18l: Nonobstructing stone in the mid right kidney. Question of a few small nonobstructing stones in the mid left kidney. There is no evidence of hydronephrosis. Labs on day of discharge: Labs from last 24 hours 05/13/18 05/13/18 06:58 06:58 WBC 6.26 D RBC 3.88 L Hgb 11.8 L Hct 36.4 MCV 93.8 MCH 30.4 MCHC 32.4 RDW 14.2 Plt Count 171 MPV 10.8 Immature Gran % 0.3 Neutrophils % 77.1 Lymphocytes % 13.4 Monocytes % 6.7 Eosinophils % 2.2 Basophils % 0.3 Absolute Neutrophils 4.83 Absolute Lymphocytes 0.84 L Absolute Monocytes 0.42 Absolute Eosinophils 0.14 Absolute Basophils 0.02 Sodium 144 Potassium 3.6 Chloride 110 H Carbon Dioxide 25.4 Anion Gap 8.6 BUN 16 D Creatinine 0.72 Estimated GFR/1.73 m2 >= 60.00 Glucose 111 H Calcium 8.1 L Magnesium 2.1 Preliminary micro results at discharge 05/11/18 09:28 Blood Culture - Preliminary Blood NO GROWTH 48 HOURS 05/11/18 09:20 Blood Culture - Preliminary Blood NO GROWTH 48 HOURS
--- NOTE | 2018-05-13 12:36 | DSE_ITS ---
Date of service: 05/13/18 Time of Service: 12:28 DS: Diagnosis Discharge Diagnosis (1) Sepsis: Status: Acute (2) UTI (urinary tract infection): Status: Acute Asessment and Plan: Present on admission, associated with indwelling suprapubic catheter, Mixed cx on 05/12/18 (3) Toxic metabolic encephalopathy: Status: Acute (4) Neurogenic bladder: Status: Chronic (5) Multiple sclerosis: Status: Chronic (6) Urinary catheter in place: Status: Chronic (7) Nephrolithiasis: Status: Chronic (8) Ambulatory dysfunction: Status: Acute (9) Nonsustained paroxysmal supraventricular tachycardia: Status: Acute (10) Hypertension: Status: Chronic Discharge Plan Disposition Patient Disposition: HOME Condition: Good Discharge Details Reason For Visit: ACUTE MENTAL STATUS CHANGE;UTI;R/O CVA Admit Date/Time: 05/11/18 18:20 Admit Provider: Wild Ledezma Attending Provider: Wild Ledezma Primary Care Provider: Opal Dejesus Hospital Course Hospital Course: Ms Bonilla is a 77 year old female with past medical history of neurogenic bladder due to MS s/p suprapubic catheter who was admitted to [facility] on 05/11/18 for sepsis due to a UTI associated with her indwelling suprapubic catheter. Her urine culture done on this admission was mixed. Her suprapubic catheter was changed on 05/12/[address] Cancino of urology. Additionally, Ms Bonilla had encephalopathy associated with her UTI which resolved with less than 24 hours of antibiotics. There is no suspicion of CVA. She responded quite well to IV vancomycin and cefepime and IV fluids. She will complete a total of 2 week of antibiotics, being transitioned to oral ceftin on discharge. She had a very short run of non-sustained SVT and is being started on a very low dose of metoprolol on discharge. Her evaluation with physical therapy found her to be at baseline to return home today. The patient and are in agreement. She will need to follow up with her PCP. Additionally, she will have to follow up with Dr Cancino for her newly discovered nonobstructive nephrolithiasis seen on ultrasound of the kidneys. Home Meds and New Rx's Prescriptions: New cefuroxime axetil 500 mg tablet 500 mg PO Q12H 10 Days Qty: 20 RF: 0 Lactobacillus acidophilus capsule 1,000 mmu cells PO TID Qty: 90 RF: 0 metoprolol tartrate 25 mg tablet 12.5 mg PO BID Qty: 30 RF: 0 Continue ascorbic acid (vitamin C) 500 MG tablet 500 mg PO BID RF: 0 [id number]-[id number] C-Mn [Glucosamine 1500 Complex] 1 EACH capsule 1 ea PO BID RF: 0 protien powder 2 tbs PO TID RF: 0 multivitamin Tablet 1 tab PO DAILY RF: 0 oxybutynin chloride 15 mg Tablet Extended Release 24hr 15 mg PO HS RF: 0 aspirin 325 mg Tablet 325 mg PO HS RF: 0 cyanocobalamin (vitamin B-12) [Vitamin B-12] 1,000 mcg Tablet 1,000 mg PO DAILY RF: 0 baclofen 10 mg Tablet 30 mg PO TID RF: 0 docusate sodium [Colace] 100 mg Capsule 300 mg PO HS RF: 0 pravastatin 20 mg Tablet 20 g PO HS RF: 0 furosemide 20 mg Tablet 20 mg PO DAILY@1200 RF: 0 gabapentin 100 mg Capsule 200 mg PO HS RF: 0 gabapentin 100 mg Capsule 100 mg PO BID RF: 0 calcium carbonate-vitamin D3 [Caltrate 600 + D] 600 mg (1,500 mg)-800 unit Tablet,Chewable 1 tab PO BID RF: 0 Discharge Instructions Instructions: Cefuroxime (By mouth), Catheter-associated Urinary Tract Infection (DC) Additional Instructions: Finish your antibiotics as prescribed. Return to the hospital with any new change in neurologic status, fever, bleeding , chest pain, or shortness of breath. Follow up with your PCP in 5-7 days. Follow-up appointment with Dr. Cancino Urology [facility] regarding renal stone plan of care May 17, 2018 (Wednesday) at 2:30PM Referrals: Jose Martin Cancino MD [ [facility] STAFF PHYSICIAN] - Opal Dejesus DO [Primary Care Provider] - Activity:: Activity as Tolerated Equipment/Supplies:: No Equipment Needed Diet:: Low Sodium Discharge Orders Discharge Orders: Discharge Order (Routine); Ordered 05/13/18 Ordered By: Patrica Patel Exam Narrative Exam Narrative: General: Very pleasant elderly female, comfortable in bed HEENT: EOMI, MMM Heart: RRR, no m/r/g Lungs: CTAB GI: Abdomen soft, nontender, nondistended Extremities: 2+ pitting edema LLE (baseline), 1+ RLE; no clubbing/cyanosis; preserved strength in BUE DS: Data Vitals/I&O Vitals and I&O: Vital Signs Temperature 36.4 C L 05/13/18 08:54 Temperature Source Temporal Artery Scan 05/13/18 08:54 Pulse 79 05/13/18 09:21 Pulse Rhythm Regular 05/12/18 19:15 Pulse 78 05/13/18 10:00 Respiratory Rate 16 05/13/18 10:00 Respiratory Effort Non-Labored 05/13/18 09:14 Respiratory Depth Normal 05/13/18 09:14 Respiratory Pattern Normal 05/13/18 09:14 Blood Pressure 166/74 H 05/13/18 09:21 Blood Pressure Mean 96 05/13/18 09:21 Blood Pressure Position Supine 05/11/18 20:00 Pulse Oximetry 94 L 05/13/18 07:05 Oxygen Delivery Method Room Air 05/13/18 07:05 Oxygen Flow Rate 0 05/13/18 07:05 Pain Level 0 05/13/18 04:43 Comment 05/13/18 04:43 Intake & Output 05/12/18 05/13/18 05/13/18 23:59 11:59 23:59 Intake Total 2735 / 2735 2150 / 2150 Output Total 1400 / 1400 1125 / 1125 Balance 1335 / 1335 1025 / 1025 Weight 86.6 kg Intake: IV 1984 1250 / 1250 Oral 750 / 750 900 / 900 Output: Urine 1400 / 1400 1125 / 1125 Other: Urine Color Yellow Yellow Urine Appearance Clear Clear Sediment Completed studies during hospitalization [Text1]: Urine C&S: mixed CT head 05/11/18; IMPRESSION: No acute intracranial process. CXR 05/11/18: no definite acute pulmonary process US desi 05/12/18l: Nonobstructing stone in the mid right kidney. Question of a few small nonobstructing stones in the mid left kidney. There is no evidence of hydronephrosis. Labs on day of discharge: Labs from last 24 hours 05/13/18 05/13/18 06:58 06:58 WBC 6.26 D RBC 3.88 L Hgb 11.8 L Hct 36.4 MCV 93.8 MCH 30.4 MCHC 32.4 RDW 14.2 Plt Count 171 MPV 10.8 Immature Gran % 0.3 Neutrophils % 77.1 Lymphocytes % 13.4 Monocytes % 6.7 Eosinophils % 2.2 Basophils % 0.3 Absolute Neutrophils 4.83 Absolute Lymphocytes 0.84 L Absolute Monocytes 0.42 Absolute Eosinophils 0.14 Absolute Basophils 0.02 Sodium 144 Potassium 3.6 Chloride 110 H Carbon Dioxide 25.4 Anion Gap 8.6 BUN 16 D Creatinine 0.72 Estimated GFR/1.73 m2 >= 60.00 Glucose 111 H Calcium 8.1 L Magnesium 2.1 Preliminary micro results at discharge 05/11/18 09:28 Blood Culture - Preliminary Blood NO GROWTH 48 HOURS 05/11/18 09:20 Blood Culture - Preliminary Blood NO GROWTH 48 HOURS
--- NOTE | 2018-05-13 16:00 | PDOC.CMIN ---
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 Surgical: bilateral cataract removal, hysterectomy, bladder surgery, colonoscopy, cervical rib removal PREVIOUS FUNCTIONAL STATUS/SOCIAL/FAMILY SUPPORTS:: Patient is a 77 year old female patient who lives with her , Dequan in their home in [place]. They have 2 children, 5 grandchildren and 1 great grandchild who all live locally. 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 Dequan is her primary caregiver and assists her with the majority of her ADLs. She does have home health nursing twice a week. CURRENT FUNCTIONAL STATUS:: Eva is sitting up in bed she is engaged during CM assessment. Eva states she does not remember being admitted to the hospital. She states she is feeling much better today she has follow up scheduled with , whom she sees on a regular basis.
--- NOTE | 2018-05-13 16:07 | PDOC.CMDIS ---
- If Service Date Differs Date of service: 05/13/18 Time of Service: 16:07 LACE Index Scoring Tool - Questions: Length of Stay (in days): 3 Acuity (Admit via E.D.?): Yes Comorbidities: Any Tumor, Connective Tissue Disease E.D. Visits: 2 - Answers: Total Score: 13 Risk of Readmission: High Risk Care Management Discharge Reason for Hospitalization: UTI, acute mental status change Discharge Plan: Eva is being discharged home today with her spouse and follow up with . She and her spouse deny need for any additional services at this time. She will be transported home via private vheicle and with her spouse. She will have resumption of services through home health for nursing. Patient/Family Education Needs: Discharge education, follow up plan of care and limitations. CM reviewed ask me three questions and self management discussion with patient and her spouse. Including antibiotic treatment and signs and symtoms of illness. Services Needed at Discharge: Home Health Care Services
== END 2018-05-13 14:10 | disposition home health service (06) | DRG 698 ==
LOC: ER 12:43 → ICU 05-12 07:34
PROVIDERS: Admitting Provider Internal Medicine; Emergency Provider Student in an Organized Health Care Education/Training Program; PCP Student in an Organized Health Care Education/Training Program; Visit Provider Internal Medicine
DX: T83.510A Infection and inflammatory reaction due to cystostomy catheter, initial encounter (principal); A41.9 Sepsis, unspecified organism; G92 Toxic encephalopathy; N39.0 Urinary tract infection, site not specified; G35 Multiple sclerosis; R13.11 Dysphagia, oral phase; N31.9 Neuromuscular dysfunction of bladder, unspecified; Z43.5 Encounter for attention to cystostomy; R41.82 Altered mental status, unspecified; I10 Essential (primary) hypertension; E78.5 Hyperlipidemia, unspecified; I48.0 Paroxysmal atrial fibrillation; N20.0 Calculus of kidney
CPT/HCPCS: 36410; 36415; 51705; 76770; 80048; 80053; 87040; 92610; 93005; 96361; 96365; 97163; 99221; 99222; 99239; 99252; 99285; G8996; 70450; 71045; 81003; 81015; 83605; 83735; 84443; 84484; 85025; 85610; 87086; 93010; 99232; J1650; J1956

== ENCOUNTER → 2018-05-17 14:23 | Outpatient (BNVA) | payer MEDICARE, SELFPAY | PROVIDERS: PCP Student in an Organized Health Care Education/Training Program; Referring Provider Student in an Organized Health Care Education/Training Program; Visit Provider Urology | DX: N20.0 Calculus of kidney (principal) | CPT/HCPCS: 99213 ==

== ENCOUNTER → 2018-06-08 10:00 | Outpatient (BNVA) | payer MEDICARE, SELFPAY | PROVIDERS: PCP Student in an Organized Health Care Education/Training Program; Visit Provider Nurse Practitioner Gerontology | DX: R33.9 Retention of urine, unspecified (principal); N31.9 Neuromuscular dysfunction of bladder, unspecified | CPT/HCPCS: 51705; 99213 ==

== ENCOUNTER 2018-06-10 01:26 | Outpatient (CLI) | payer MEDICARE, SELFPAY ==
--- NOTE | 2018-06-10 08:58 | DI.CT_ITS ---
SYMPTOMS/DIAGNOSIS: CALCULUS OF KIDNEY, N20.0, STONE EVALUATION CT SCAN OF THE ABDOMEN AND PELVIS: CT scan of the abdomen and pelvis was performed according to the renal colic protocol. There are no priors for comparison. Comparison ultrasound is . The visualized lung bases are clear. Lack of IV contrast does limit evaluation of the abdominal and pelvic organs. In the unenhanced liver, there is a 0.8 cm round hypodense lesion in the left lobe. This is nonspecific on this noncontrast examination. This may represent a cyst. Followup is recommended. There are multiple stones seen within the gallbladder. No biliary ductal dilatation is seen. The unenhanced pancreas, spleen and adrenal glands are unremarkable. The left kidney shows no evidence of nephrolithiasis or hydronephrosis. There are several nonobstructing stones seen within the right kidney. There is a 0.7 cm stone in the mid right ureter, causing mild hydronephrosis. There are several stones seen in the right renal pelvis; the largest measures 1.3 x 1.3 cm , the second largest measures 1.5 cm long x 0.6 cm transverse. The urinary bladder is intact. Note is made of a suprapubic catheter. The reproductive organs are not visualized. There is diffuse concentric thickening of the rectum. There is stool seen in the distal colon and rectum. This may represent stercoral colitis. There is diverticulosis of the colon, but no evidence of acute diverticulitis. There is a moderately large amount of stool seen throughout the colon. No findings to suggest an acute appendicitis are present. No evidence of bowel obstruction is seen. No significant abdominal or pelvic adenopathy, ascites or pneumoperitoneum is seen. There is atherosclerosis of the abdominal aorta, but no aneurysmal dilatation is present. There is a small hiatal hernia present. Degenerative changes are seen in the spine. IMPRESSION: 1. A 7 mm right mid ureteral stone causing mild hydronephrosis. 2. Right nephrolithiasis. 3. Cholelithiasis. No biliary ductal dilatation. 4. Concentric thickening of the rectal wall. This may represent stercoral colitis or proctitis. Please correlate clinically. 5. Round hypodense lesion in the left lobe of the liver. This is nonspecific. This may represent a cyst. A solid mass cannot be excluded. Followup as clinically appropriate.
== END 2018-06-10 01:46 ==
PROVIDERS: PCP Student in an Organized Health Care Education/Training Program; Visit Provider Urology
DX: N20.0 Calculus of kidney (principal); N13.2 Hydronephrosis with renal and ureteral calculous obstruction; K80.20 Calculus of gallbladder without cholecystitis without obstruction; K62.89 Other specified diseases of anus and rectum; K76.9 Liver disease, unspecified
CPT/HCPCS: 74176

== ENCOUNTER → 2018-07-01 09:05 | Outpatient (BNVA) | payer MEDICARE, SELFPAY | PROVIDERS: PCP Student in an Organized Health Care Education/Training Program; Visit Provider Urology | DX: N20.0 Calculus of kidney (principal); N31.9 Neuromuscular dysfunction of bladder, unspecified; G35 Multiple sclerosis; I10 Essential (primary) hypertension | CPT/HCPCS: 51705; 99211; 99213 ==

== ENCOUNTER → 2018-07-19 10:11 | Outpatient (BNVA) | payer MEDICARE, SELFPAY | PROVIDERS: PCP Student in an Organized Health Care Education/Training Program; Visit Provider Nurse Practitioner Gerontology | DX: N31.9 Neuromuscular dysfunction of bladder, unspecified (principal); N20.0 Calculus of kidney; Z96.0 Presence of urogenital implants | CPT/HCPCS: 51705; 99213 ==

== ENCOUNTER → 2018-08-09 10:27 | Outpatient (BNVA) | payer MEDICARE, SELFPAY | PROVIDERS: PCP Student in an Organized Health Care Education/Training Program; Visit Provider Nurse Practitioner Gerontology | DX: N20.0 Calculus of kidney (principal); N31.9 Neuromuscular dysfunction of bladder, unspecified; I10 Essential (primary) hypertension; Z46.6 Encounter for fitting and adjustment of urinary device | CPT/HCPCS: 51705; 99213 ==

== ENCOUNTER → 2018-08-30 09:47 | Outpatient (BNVA) | payer MEDICARE, SELFPAY | PROVIDERS: PCP Student in an Organized Health Care Education/Training Program; Visit Provider Nurse Practitioner Gerontology | DX: N31.9 Neuromuscular dysfunction of bladder, unspecified (principal); G35 Multiple sclerosis; N20.0 Calculus of kidney; I10 Essential (primary) hypertension | CPT/HCPCS: 51705; 99213 ==

== ENCOUNTER 2018-09-25 22:20 | Emergency (ER) | payer MEDICARE, SELFPAY ==
--- NOTE | 2018-09-25 00:05 | DI.RAD_ITS ---
SYMPTOMS/DIAGNOSIS: EVAL RT URETERAL STENT SUPINE ABDOMEN: There are no prior comparison exams with a stent in place. There is a right sided ureteral stent with a pigtail projecting in the expected location of the right renal pelvis and a distal pigtail projected in the expected location of the bladder. There is a stone seen adjacent to the upper third of the stent. Tubing is noted on the right side. The bowel gas pattern is unremarkable. Degenerative changes are seen in the spine and hips. IMPRESSION: Right ureteral stent appears appropriately positioned. A stone is noted adjacent to the upper third of the stent.
[2018-09-25 22:32] VITALS: BP 144/67; PULSE 69; RESP 20; TEMP 37.4; O2SAT 95
--- NOTE | 2018-09-25 22:43 | W.ED.GENAD ---
Discharge Plan Disposition Patient Disposition: HOME Condition: Good Discharge Details Chief Complaint: GenMedical Clinical Impression: Nephrostomy complication Primary Care Provider: Opal Dejesus ED Provider: Chad Hernandez [place] Meds and New Rx's Prescriptions: Continued ascorbic acid (vitamin C) 500 MG tablet 500 mg PO BID RF: 0 orelkkjvaam-crgcnfnkh-ckg C-Mn [Glucosamine 1500 Complex] 1 EACH capsule 1 ea PO BID RF: 0 protien powder 2 tbs PO TID RF: 0 multivitamin Tablet 1 tab PO DAILY RF: 0 oxybutynin chloride 15 mg Tablet Extended Release 24hr 15 mg PO HS RF: 0 aspirin 325 mg Tablet 325 mg PO HS RF: 0 cyanocobalamin (vitamin B-12) [Vitamin B-12] 1,000 mcg Tablet 1,000 mg PO DAILY RF: 0 baclofen 10 mg Tablet 30 mg PO TID RF: 0 docusate sodium [Colace] 100 mg Capsule 300 mg PO HS RF: 0 pravastatin 20 mg Tablet 20 g PO HS RF: 0 furosemide 20 mg Tablet 20 mg PO DAILY@1200 RF: 0 gabapentin 100 mg Capsule 200 mg PO HS RF: 0 gabapentin 100 mg Capsule 100 mg PO BID RF: 0 Caltrate 600 + D 600 mg (1,500 mg)-800 unit Tablet,Chewable 1 tab PO BID RF: 0 Discharge Instructions Additional Instructions: Follow up with urology at [facility] Wednesday morning as planned. Return to the emergency department if you develop fever, flank or abdominal pain, gross blood from the former nephrostomy site. Referrals: [facility] [Provider Group] Medical Decision Making I reviewed the patient's records from [facility]. I then called down to speak to urology. Urologist sales promotion coordinator was not overly concerned. Recommended obtaining a KUB to make sure the stent was still in place as well as a CBC and chemistry. If these were all fine she could be safely discharged to follow-up down there at [facility] on Wednesday as planned. X-ray shows that the ureteral stent is in place. Patient's white count is minimally elevated. She has a mild anemia. Her kidney function is normal. Patient will be discharged home to follow-up at [facility] as planned on Wednesday. Return to ED if she develops pain, fever, vomiting, other concerns or problems. Medical Records Medical records reviewed: Yes I reviewed the patient's medical records. Lab Data Lab results reviewed: Yes I reviewed the patient's lab results. HPI General Mode of arrival: EMS. Date/Time Provider Initiated Documentation: 09/25/18 22:43. Limitations to Documentation: no limitations. Information obtained by: patient, family and old records reviewed. HPI Narrative: Patient presents to ED after leaking a large amount of pink liquid out of her former nephrostomy tube site. Patient had been admitted on September 16 at [facility] for right kidney stones. She was discharged on the . She still has a right ureteral stent in place. She is still on Bactrim. She had a nephrostomy tube in place after her initial surgery. It was discontinued on postop day 4. She went home on postop day 5. She has been okay at home and was doing well this weekend. She has had no fevers. She has no pain. Her suprapubic catheter is draining clear urine. Tonight when she was getting ready to go to bed they noticed that her chair was covered in a pink liquid which was draining from her nephrostomy site. Ambulance was called and patient is transported here. Related Data Home Medications Medication Instructions Recorded Confirmed ascorbic acid (vitamin C) 500 mg PO BID 11/11/12 09/25/18 tpdixgxjrto-ssfebuwpe-gob C-Mn 1 ea PO BID cap 11/28/13 09/25/18 [Glucosamine 1500 Complex] Protien Powder 2 tbs PO TID 04/09/17 09/25/18 aspirin 325 mg PO HS 05/11/18 09/25/18 baclofen 30 mg PO TID 05/11/18 09/25/18 cyanocobalamin (vitamin B-12) 1,000 mg PO DAILY 05/11/18 09/25/18 [Vitamin B-12] docusate sodium [Colace] 300 mg PO HS 05/11/18 09/25/18 furosemide 20 mg PO DAILY@1200 05/11/18 09/25/18 gabapentin 100 mg PO BID 05/11/18 09/25/18 gabapentin 200 mg PO HS 05/11/18 09/25/18 multivitamin 1 tab PO DAILY 05/11/18 09/25/18 oxybutynin chloride 15 mg PO HS 05/11/18 09/25/18 pravastatin 20 g PO HS 05/11/18 09/25/18 Caltrate 600 + D 1 tab PO BID 05/13/18 09/25/18 Allergies Allergy/AdvReac Type Severity Reaction Status Date / Time lisinopril AdvReac Severe cough/wheez Verified 09/25/18 22:44 ing Iodine and Iodide Containing AdvReac Intermediate redness Verified 09/25/18 22:44 Produc pregabalin [From Lyrica] AdvReac whoosy Verified 09/25/18 22:44 reported 04/2017 iodine Allergy Uncoded 09/25/18 22:44 General Stated Complaint: GenMedical XANDER: 3 Review of Systems Constitutional Denies chills, Denies fatigue, Denies fever(s), Denies malaise and Denies weakness Cardiovascular Denies chest pain, Denies syncope and Denies dyspnea Respiratory Denies cough and Denies dyspnea Gastrointestinal Denies abdominal pain, Denies diarrhea, Denies nausea and Denies vomiting Genitourinary Denies hematuria, Denies pelvic pain and Denies flank pain Musculoskeletal Denies numbness Neurologic Denies confusion, Denies syncope, Denies focal weakness, Denies numbness and Denies weakness Psychiatric Denies confusion Endocrine Denies fatigue [facility] Medical History Tubular adenoma (Chronic) Neurogenic bladder (Chronic) Hypertension (Chronic) Multiple sclerosis (Chronic) Hyperlipemia (Chronic) Surgical History S/P ureteral stent placement (Acute) Cervical rib (Resolved) Hx of colonoscopy with polypectomy (Inactive) incision and drainage (Inactive 03/23/18) Social History household members: spouse lives independently: Yes number of children: 2 current occupational status: retired frequency: 3-4 times per week Smoking and Tabacco status: Never alcohol intake: never substance use type: does not use What is your relationship status?: Panel score (0-1 are the most socially isolated patients): 1 Seatbelt use: always water heater temp set < 120 deg: Yes working smoke detector in home: Yes fire extinguisher in home: Yes carbon monox detector in home: Yes firearms in home: Yes Exam Const General: cooperative and no acute distress Orientation: alert and oriented x3 Resp Effort & Inspection: normal respiratory effort GI Inspection: non-distended Palpation: soft and nontender Other: Suprapubic tube in place and draining clear fluid. Back/Spine/Pelvis Back: no CVA tenderness, No erythema, No warmth and No ecchymosis Other: Minimal pinkish fluid draining from previous right nephrostomy site Skin General skin exam: no ecchymosis and no erythema Course Vital Signs Temperature 99.3 F 09/25/18 22:32 Pulse 69 09/25/18 22:32 Respiratory Rate 20 09/25/18 22:32 Blood Pressure 144/67 H 09/25/18 22:32 Pulse Oximetry 95 09/25/18 22:32 Temperature 99.3 F 09/25/18 22:32 Temperature Source Temporal Artery Scan 09/25/18 22:32 Pulse 69 09/25/18 22:32 Respiratory Rate 20 09/25/18 22:32 Respiratory Effort Non-Labored 09/25/18 22:32 Respiratory Depth Normal 09/25/18 22:32 Respiratory Pattern Normal 09/25/18 22:32 Blood Pressure 144/67 H 09/25/18 22:32 Pulse Oximetry 95 09/25/18 22:32 Oxygen Delivery Method Room Air 09/25/18 22:32 Oxygen Flow Rate 0 09/25/18 22:32 Pain Level 0 09/25/18 22:32
[2018-09-25 23:54] LABS: Abs Immature Grans 0.17 k/cumm (0.0-0.09); Absolute Basophil Count 0.04 k/cumm (0.0-0.2); Absolute Eosinophil Count 0.35 k/cumm (0.0-0.7); Absolute Lymphocyte Count 1.99 k/cumm (1.2-3.4); Absolute Monocyte Count 0.78 k/cumm (0.11-0.7); Absolute Neutrophil Count 8.37 k/cumm (1.2-6.7); Basophils % 0.3; HCT 34.2 % (36.0-46.0); HGB 11.2 g/dL (12.0-15.5); Immature Grans % 1.5; Mean Corp. HGB Concentration 32.7 g/dL (32.0-36.0); Mean Corpuscular Hemoglobin 30.4 pg (27.0-33.0); Mean Corpuscular Volume 92.9 fL (80-95); Mean Platelet Volume 10.4 fL (8.0-11.0); Monocytes % 6.7; Neutrophils % 71.5; Platelet Count 390 x1000/uL (130-400); RBC 3.68 m/cumm (4.00-5.20); RBC Distribution Width 14.3 % (11.7-14.6)
[2018-09-26 00:08] LABS: Anion Gap 9.6 mmol/L (3-11); BUN 13 mg/dL (7-18); CO2 28.4 mmol/L (21.0-32.0); CREATININE 0.94 mg/dL (0.55-1.02); Calcium 8.9 mg/dL (8.5-10.1); Chloride 102 mmol/L (98-107); Estimated GFR 57.59 (mL/min/1.73m2); Glucose 114 mg/dL (70-100); Sodium 140 mmol/L (136-145)
--- NOTE | 2018-09-26 00:14 | DI.VRAD_ITS ---
EXAM: XR Abdomen, 1 View EXAM DATE/TIME: 09/25/2018 11:33 PM CLINICAL HISTORY: 78 years old, female; Device placement; Urinary device; Renal or nephroureteral stent; Patient HX: Evaluate r ureteral stent TECHNIQUE: Frontal supine view of the abdomen/pelvis. COMPARISON: US renal 05/12/2018 7:16 AM FINDINGS: Tubes, catheters and devices: Right ureteral stent looks an a typical position. Gastrointestinal tract: Moderate amount of stool in the colon. Organs: Unremarkable. Bones/joints: Unremarkable for age. IMPRESSION: No acute findings. Dictated and Authenticated by: Alvin Holliday MD. Ordering:EFRAIN Bonilla MD
--- NOTE | 2018-09-26 01:41 | NUR.NOTE ---
Nursing Note: dressing changed on right flank for small amount of sang drainage
== END 2018-09-26 01:12 | disposition home or self-care (01) ==
LOC: ER 09-26 01:11
PROVIDERS: Emergency Provider Emergency Medicine; PCP Student in an Organized Health Care Education/Training Program
DX: N99.528 Other complication of incontinent external stoma of urinary tract (principal); Y83.1 Surgical operation with implant of artificial internal device as the cause of abnormal reaction of the patient, or of later complication, without mention of misadventure at the time of the procedure; Z96.0 Presence of urogenital implants; Z87.442 Personal history of urinary calculi; I10 Essential (primary) hypertension; G35 Multiple sclerosis
CPT/HCPCS: 36415; 80048; 99283; 74018; 85025

== ENCOUNTER → 2018-10-11 10:23 | Outpatient (BNVA) | payer MEDICARE, SELFPAY | PROVIDERS: PCP Student in an Organized Health Care Education/Training Program; Visit Provider Nurse Practitioner Gerontology | DX: N31.9 Neuromuscular dysfunction of bladder, unspecified (principal); G35 Multiple sclerosis; I10 Essential (primary) hypertension | CPT/HCPCS: 51702; 99213 ==

== ENCOUNTER 2018-10-19 08:34 | Outpatient (CLI) | payer MEDICARE, SELFPAY ==
[2018-10-19 10:24] LABS: Anion Gap 5.7 mmol/L (3-11); BUN 13 mg/dL (7-18); CO2 30.3 mmol/L (21.0-32.0); CREATININE 0.65 mg/dL (0.55-1.02); Calcium 9.1 mg/dL (8.5-10.1); Chloride 106 mmol/L (98-107); Glucose 93 mg/dL (70-100); Potassium 4.3 mmol/L (3.5-5.1); Sodium 142 mmol/L (136-145)
== END 2018-10-19 08:54 ==
PROVIDERS: PCP Student in an Organized Health Care Education/Training Program; Visit Provider Student in an Organized Health Care Education/Training Program
DX: N20.0 Calculus of kidney (principal); T36.95XA Adverse effect of unspecified systemic antibiotic, initial encounter
CPT/HCPCS: 36415; 80048

== ENCOUNTER → 2018-11-01 10:19 | Outpatient (BNVA) | payer MEDICARE, SELFPAY | PROVIDERS: PCP Student in an Organized Health Care Education/Training Program; Visit Provider Nurse Practitioner Gerontology | DX: N31.9 Neuromuscular dysfunction of bladder, unspecified (principal); G35 Multiple sclerosis; I10 Essential (primary) hypertension | CPT/HCPCS: 51705; 99213 ==

== ENCOUNTER → 2018-11-22 10:48 | Outpatient (BNVA) | payer MEDICARE, SELFPAY | PROVIDERS: PCP Student in an Organized Health Care Education/Training Program; Visit Provider Nurse Practitioner Gerontology | DX: N31.9 Neuromuscular dysfunction of bladder, unspecified (principal); G35 Multiple sclerosis; I10 Essential (primary) hypertension | CPT/HCPCS: 51705; 99213 ==

== ENCOUNTER → 2018-12-13 10:33 | Outpatient (BNVA) | payer MEDICARE, SELFPAY | PROVIDERS: PCP Student in an Organized Health Care Education/Training Program; Visit Provider Nurse Practitioner Gerontology | DX: N31.9 Neuromuscular dysfunction of bladder, unspecified (principal); G35 Multiple sclerosis; Z43.5 Encounter for attention to cystostomy | CPT/HCPCS: 99213 ==

== ENCOUNTER → 2018-12-21 08:14 | Outpatient (BNVA) | payer MEDICARE, SELFPAY | PROVIDERS: PCP Student in an Organized Health Care Education/Training Program; Referring Provider Nurse Practitioner; Visit Provider Psychiatry & Neurology Neurology | DX: G35 Multiple sclerosis (principal); R60.0 Localized edema; M79.2 Neuralgia and neuritis, unspecified; R25.2 Cramp and spasm; I10 Essential (primary) hypertension | CPT/HCPCS: 99205; 99215 ==

== ENCOUNTER → 2019-01-03 10:08 | Outpatient (BNVA) | payer MEDICARE, SELFPAY | PROVIDERS: PCP Student in an Organized Health Care Education/Training Program; Visit Provider Nurse Practitioner Gerontology | DX: N31.9 Neuromuscular dysfunction of bladder, unspecified (principal); N32.89 Other specified disorders of bladder; G35 Multiple sclerosis; Z43.5 Encounter for attention to cystostomy; Z46.6 Encounter for fitting and adjustment of urinary device | CPT/HCPCS: 51705; 99213 ==

== ENCOUNTER → 2019-01-24 13:11 | Outpatient (BNVA) | payer MEDICARE, SELFPAY | PROVIDERS: PCP Student in an Organized Health Care Education/Training Program; Visit Provider Urology | DX: Z46.6 Encounter for fitting and adjustment of urinary device (principal); N31.9 Neuromuscular dysfunction of bladder, unspecified; I10 Essential (primary) hypertension | CPT/HCPCS: 51705; 99211 ==

== ENCOUNTER → 2019-02-17 09:32 | Outpatient (BNVA) | payer MEDICARE, SELFPAY | PROVIDERS: PCP Student in an Organized Health Care Education/Training Program; Visit Provider Urology | DX: N31.9 Neuromuscular dysfunction of bladder, unspecified (principal); G35 Multiple sclerosis; Z46.6 Encounter for fitting and adjustment of urinary device | CPT/HCPCS: 51705; 99211 ==

== ENCOUNTER → 2019-03-14 09:29 | Outpatient (BNVA) | payer MEDICARE, SELFPAY | PROVIDERS: PCP Student in an Organized Health Care Education/Training Program; Visit Provider Nurse Practitioner Gerontology | DX: N31.9 Neuromuscular dysfunction of bladder, unspecified (principal); G35 Multiple sclerosis; Z46.6 Encounter for fitting and adjustment of urinary device | CPT/HCPCS: 51705; 99213 ==

== ENCOUNTER → 2019-04-07 11:51 | Outpatient (BNVA) | payer MEDICARE, SELFPAY | PROVIDERS: PCP Student in an Organized Health Care Education/Training Program; Visit Provider Urology | DX: N31.9 Neuromuscular dysfunction of bladder, unspecified (principal); G35 Multiple sclerosis; Z46.6 Encounter for fitting and adjustment of urinary device | CPT/HCPCS: 51705; 99212 ==

== ENCOUNTER → 2019-05-02 10:46 | Outpatient (BNVA) | payer MEDICARE, SELFPAY | PROVIDERS: PCP Student in an Organized Health Care Education/Training Program; Referring Provider Student in an Organized Health Care Education/Training Program; Visit Provider Nurse Practitioner Gerontology | DX: N31.9 Neuromuscular dysfunction of bladder, unspecified (principal); Z46.6 Encounter for fitting and adjustment of urinary device | CPT/HCPCS: 51705; 99213 ==

== ENCOUNTER → 2019-05-23 09:40 | Outpatient (BNVA) | payer MEDICARE, SELFPAY | PROVIDERS: PCP Student in an Organized Health Care Education/Training Program; Referring Provider Student in an Organized Health Care Education/Training Program; Visit Provider Nurse Practitioner Gerontology | DX: N31.9 Neuromuscular dysfunction of bladder, unspecified (principal); Z46.6 Encounter for fitting and adjustment of urinary device | CPT/HCPCS: 51705; 99212 ==

== ENCOUNTER → 2019-06-13 11:30 | Outpatient (BNVA) | payer MEDICARE, SELFPAY | PROVIDERS: PCP Student in an Organized Health Care Education/Training Program; Referring Provider Student in an Organized Health Care Education/Training Program; Visit Provider Nurse Practitioner Gerontology | DX: N31.9 Neuromuscular dysfunction of bladder, unspecified (principal); Z46.6 Encounter for fitting and adjustment of urinary device | CPT/HCPCS: 51705; 99213 ==

== ENCOUNTER → 2019-06-20 09:40 | Outpatient (BNVA) | payer MEDICARE, SELFPAY | PROVIDERS: PCP Student in an Organized Health Care Education/Training Program; Referring Provider Student in an Organized Health Care Education/Training Program; Visit Provider Psychiatry & Neurology Neurology | DX: G35 Multiple sclerosis (principal); M79.2 Neuralgia and neuritis, unspecified; R25.2 Cramp and spasm; I10 Essential (primary) hypertension; N31.9 Neuromuscular dysfunction of bladder, unspecified | CPT/HCPCS: 99213 ==

== ENCOUNTER → 2019-07-04 09:56 | Outpatient (BNVA) | payer MEDICARE, SELFPAY | PROVIDERS: PCP Student in an Organized Health Care Education/Training Program; Referring Provider Student in an Organized Health Care Education/Training Program; Visit Provider Nurse Practitioner Gerontology | DX: N31.9 Neuromuscular dysfunction of bladder, unspecified (principal); Z46.6 Encounter for fitting and adjustment of urinary device; I10 Essential (primary) hypertension | CPT/HCPCS: 51705; 99213 ==

== ENCOUNTER → 2019-07-24 10:13 | Outpatient (BNVA) | payer MEDICARE, SELFPAY | PROVIDERS: PCP Student in an Organized Health Care Education/Training Program; Referring Provider Student in an Organized Health Care Education/Training Program; Visit Provider Nurse Practitioner Gerontology | DX: N31.9 Neuromuscular dysfunction of bladder, unspecified (principal); Z46.6 Encounter for fitting and adjustment of urinary device; I10 Essential (primary) hypertension | CPT/HCPCS: 51705; 99212 ==

== ENCOUNTER → 2019-08-15 10:24 | Outpatient (BNVA) | payer MEDICARE, SELFPAY | PROVIDERS: PCP Student in an Organized Health Care Education/Training Program; Referring Provider Student in an Organized Health Care Education/Training Program; Visit Provider Nurse Practitioner Gerontology | DX: N31.9 Neuromuscular dysfunction of bladder, unspecified (principal); Z46.6 Encounter for fitting and adjustment of urinary device | CPT/HCPCS: 51705; 99213 ==

== ENCOUNTER → 2019-09-05 10:42 | Outpatient (BNVA) | payer MEDICARE, SELFPAY | PROVIDERS: PCP Student in an Organized Health Care Education/Training Program; Referring Provider Student in an Organized Health Care Education/Training Program; Visit Provider Nurse Practitioner Gerontology | DX: N31.9 Neuromuscular dysfunction of bladder, unspecified (principal); G35 Multiple sclerosis | CPT/HCPCS: 51705; 99212; 99213 ==

== ENCOUNTER → 2019-09-26 10:21 | Outpatient (BNVA) | payer MEDICARE, SELFPAY | PROVIDERS: PCP Student in an Organized Health Care Education/Training Program; Referring Provider Student in an Organized Health Care Education/Training Program; Visit Provider Nurse Practitioner Gerontology | DX: N31.8 Other neuromuscular dysfunction of bladder (principal) | CPT/HCPCS: 51705; 99213 ==

== ENCOUNTER → 2019-10-17 10:57 | Outpatient (BNVA) | payer MEDICARE, SELFPAY | PROVIDERS: PCP Student in an Organized Health Care Education/Training Program; Referring Provider Student in an Organized Health Care Education/Training Program; Visit Provider Nurse Practitioner Gerontology | DX: N31.8 Other neuromuscular dysfunction of bladder (principal); Z46.6 Encounter for fitting and adjustment of urinary device; G35 Multiple sclerosis; I10 Essential (primary) hypertension | CPT/HCPCS: 51705; 99213 ==

== ENCOUNTER → 2019-11-07 10:32 | Outpatient (BNVA) | payer MEDICARE, SELFPAY | PROVIDERS: PCP Student in an Organized Health Care Education/Training Program; Referring Provider Student in an Organized Health Care Education/Training Program; Visit Provider Nurse Practitioner Gerontology | DX: N31.8 Other neuromuscular dysfunction of bladder (principal); Z46.6 Encounter for fitting and adjustment of urinary device | CPT/HCPCS: 51705; 99213 ==

== ENCOUNTER → 2019-11-28 10:25 | Outpatient (BNVA) | payer MEDICARE, SELFPAY | PROVIDERS: PCP Student in an Organized Health Care Education/Training Program; Referring Provider Student in an Organized Health Care Education/Training Program; Visit Provider Nurse Practitioner Gerontology | DX: N31.8 Other neuromuscular dysfunction of bladder (principal); G35 Multiple sclerosis; Z46.6 Encounter for fitting and adjustment of urinary device | CPT/HCPCS: 51705; 99213 ==

== ENCOUNTER → 2019-12-19 10:38 | Outpatient (BNVA) | payer MEDICARE, SELFPAY | PROVIDERS: PCP Student in an Organized Health Care Education/Training Program; Referring Provider Student in an Organized Health Care Education/Training Program; Visit Provider Nurse Practitioner Gerontology | DX: N31.8 Other neuromuscular dysfunction of bladder (principal); Z46.6 Encounter for fitting and adjustment of urinary device; I10 Essential (primary) hypertension | CPT/HCPCS: 51705; 99213 ==

== ENCOUNTER → 2020-01-09 10:57 | Outpatient (BNVA) | payer MEDICARE, SELFPAY | PROVIDERS: PCP Student in an Organized Health Care Education/Training Program; Referring Provider Student in an Organized Health Care Education/Training Program; Visit Provider Nurse Practitioner Gerontology | DX: N31.9 Neuromuscular dysfunction of bladder, unspecified (principal); Z46.6 Encounter for fitting and adjustment of urinary device | CPT/HCPCS: 51705; 99213 ==

== ENCOUNTER → 2020-01-30 10:59 | Outpatient (BNVA) | payer MEDICARE, SELFPAY | PROVIDERS: PCP Student in an Organized Health Care Education/Training Program; Referring Provider Student in an Organized Health Care Education/Training Program; Visit Provider Nurse Practitioner Gerontology | DX: N31.8 Other neuromuscular dysfunction of bladder (principal); Z46.6 Encounter for fitting and adjustment of urinary device | CPT/HCPCS: 51705; 99213 ==

== ENCOUNTER → 2020-02-20 10:28 | Outpatient (BNVA) | payer MEDICARE, SELFPAY | PROVIDERS: PCP Student in an Organized Health Care Education/Training Program; Referring Provider Student in an Organized Health Care Education/Training Program; Visit Provider Nurse Practitioner Gerontology | DX: N31.8 Other neuromuscular dysfunction of bladder (principal); Z46.6 Encounter for fitting and adjustment of urinary device; I10 Essential (primary) hypertension | CPT/HCPCS: 51705; 99213 ==

== ENCOUNTER → 2020-03-12 10:42 | Outpatient (BNVA) | payer MEDICARE, SELFPAY | PROVIDERS: PCP Student in an Organized Health Care Education/Training Program; Referring Provider Student in an Organized Health Care Education/Training Program; Visit Provider Nurse Practitioner Gerontology | DX: N31.8 Other neuromuscular dysfunction of bladder (principal); G35 Multiple sclerosis; Z46.6 Encounter for fitting and adjustment of urinary device; I10 Essential (primary) hypertension | CPT/HCPCS: 51705; 99213 ==

== ENCOUNTER → 2020-04-02 10:33 | Outpatient (BNVA) | payer MEDICARE, SELFPAY | PROVIDERS: PCP Student in an Organized Health Care Education/Training Program; Referring Provider Student in an Organized Health Care Education/Training Program; Visit Provider Nurse Practitioner Gerontology | DX: N31.9 Neuromuscular dysfunction of bladder, unspecified (principal); Z46.6 Encounter for fitting and adjustment of urinary device; I10 Essential (primary) hypertension | CPT/HCPCS: 51705; 99213 ==

== ENCOUNTER → 2020-04-23 10:07 | Outpatient (BNVA) | payer MEDICARE, SELFPAY | PROVIDERS: PCP Student in an Organized Health Care Education/Training Program; Referring Provider Student in an Organized Health Care Education/Training Program; Visit Provider Nurse Practitioner Gerontology | DX: N31.8 Other neuromuscular dysfunction of bladder (principal); Z46.6 Encounter for fitting and adjustment of urinary device; I10 Essential (primary) hypertension | CPT/HCPCS: 51705; 99213 ==

== ENCOUNTER → 2020-05-14 09:52 | Outpatient (BNVA) | payer MEDICARE, SELFPAY | PROVIDERS: PCP Student in an Organized Health Care Education/Training Program; Referring Provider Student in an Organized Health Care Education/Training Program; Visit Provider Nurse Practitioner Gerontology | DX: N31.9 Neuromuscular dysfunction of bladder, unspecified (principal); Z46.6 Encounter for fitting and adjustment of urinary device | CPT/HCPCS: 51705; 99213 ==

== ENCOUNTER 2020-05-28 01:52 | Outpatient (CLI) | payer MEDICARE, SELFPAY ==
[2020-05-28 08:24] LABS: HGB 13.3 g/dL (11.2-15.7); MCH 30.9 pg (27.0-33.0); MCHC 32.4 % (32.0-36.0); MCV 95.1 fL (80-95); MPV 10.4 fL (8.0-11.0); Platelet Count 239 10^3/uL (130-400); RBC 4.31 10^6/uL (3.93-5.22); RDW 12.7 % (11.7-14.6); WBC 5.12 10^3/uL (4.4-10.8)
[2020-05-28 09:20] LABS: ALT 18 U/L (14-59); AST 18 U/L (15-37); Albumin 3.5 g/dL (3.4-5.0); Alkaline Phosphatase 93 U/L (46-116); Anion Gap 2.8 mmol/L (3-11); BUN 14 mg/dL (7-18); Bilirubin, Total 0.3 mg/dL (0.2-1.0); CO2 35.2 mmol/L (21.0-32.0); CREATININE 0.73 mg/dL (0.55-1.02); Calcium 8.8 mg/dL (8.5-10.1); Calculated LDL 132 mg/dL (<100); Chloride 104 mmol/L (98-107); Cholesterol 226 mg/dL (<200); Glucose 97 mg/dL (74-106); HDL Cholesterol 57 mg/dL (40-60); Potassium 3.9 mmol/L (3.5-5.1); Sodium 142 mmol/L (136-145); Total Protein 6.4 g/dL (6.4-8.2); Triglyceride 189 mg/dL (<150)
== END 2020-05-28 02:12 ==
PROVIDERS: PCP Student in an Organized Health Care Education/Training Program; Visit Provider Student in an Organized Health Care Education/Training Program
DX: E78.5 Hyperlipidemia, unspecified (principal); M79.2 Neuralgia and neuritis, unspecified
CPT/HCPCS: 36415; 80053; 80061; 85027

== ENCOUNTER → 2020-06-04 10:29 | Outpatient (BNVA) | payer MEDICARE, SELFPAY | PROVIDERS: PCP Student in an Organized Health Care Education/Training Program; Referring Provider Student in an Organized Health Care Education/Training Program; Visit Provider Nurse Practitioner Gerontology | DX: N31.8 Other neuromuscular dysfunction of bladder (principal); Z46.6 Encounter for fitting and adjustment of urinary device; I10 Essential (primary) hypertension | CPT/HCPCS: 51705; 99213 ==

== ENCOUNTER → 2020-06-18 12:20 | Outpatient (BNVA) | payer MEDICARE, SELFPAY | PROVIDERS: PCP Student in an Organized Health Care Education/Training Program; Referring Provider Student in an Organized Health Care Education/Training Program; Visit Provider Psychiatry & Neurology Neurology | DX: G35 Multiple sclerosis (principal); N31.9 Neuromuscular dysfunction of bladder, unspecified; M79.2 Neuralgia and neuritis, unspecified; R25.2 Cramp and spasm | CPT/HCPCS: 99213; 99442 ==

== ENCOUNTER → 2020-06-24 10:07 | Outpatient (BNVA) | payer MEDICARE, SELFPAY | PROVIDERS: PCP Student in an Organized Health Care Education/Training Program; Referring Provider Student in an Organized Health Care Education/Training Program; Visit Provider Nurse Practitioner Gerontology | DX: N31.8 Other neuromuscular dysfunction of bladder (principal); Z46.6 Encounter for fitting and adjustment of urinary device | CPT/HCPCS: 51705; 99213 ==

== ENCOUNTER → 2020-07-16 10:09 | Outpatient (BNVA) | payer MEDICARE, SELFPAY | PROVIDERS: PCP Student in an Organized Health Care Education/Training Program; Referring Provider Student in an Organized Health Care Education/Training Program; Visit Provider Nurse Practitioner Gerontology | DX: N31.9 Neuromuscular dysfunction of bladder, unspecified (principal); Z43.5 Encounter for attention to cystostomy | CPT/HCPCS: 51705; 99212 ==

== ENCOUNTER → 2020-08-06 10:26 | Outpatient (BNVA) | payer MEDICARE, SELFPAY | PROVIDERS: PCP Student in an Organized Health Care Education/Training Program; Referring Provider Student in an Organized Health Care Education/Training Program; Visit Provider Nurse Practitioner Gerontology | DX: N31.8 Other neuromuscular dysfunction of bladder (principal); Z46.6 Encounter for fitting and adjustment of urinary device | CPT/HCPCS: 51705; 99212 ==

== ENCOUNTER → 2020-08-27 10:02 | Outpatient (BNVA) | payer MEDICARE, SELFPAY | PROVIDERS: PCP Student in an Organized Health Care Education/Training Program; Referring Provider Student in an Organized Health Care Education/Training Program; Visit Provider Nurse Practitioner Gerontology | DX: N31.9 Neuromuscular dysfunction of bladder, unspecified (principal); Z43.5 Encounter for attention to cystostomy | CPT/HCPCS: 51705 ==

== ENCOUNTER → 2020-09-16 09:59 | Outpatient (BNVA) | payer MEDICARE, SELFPAY | PROVIDERS: PCP Student in an Organized Health Care Education/Training Program; Referring Provider Student in an Organized Health Care Education/Training Program; Visit Provider Nurse Practitioner Gerontology | DX: N31.9 Neuromuscular dysfunction of bladder, unspecified (principal); G35 Multiple sclerosis | CPT/HCPCS: 51705 ==

== ENCOUNTER → 2020-10-08 12:37 | Outpatient (BNVA) | payer MEDICARE, SELFPAY | PROVIDERS: PCP Student in an Organized Health Care Education/Training Program; Referring Provider Student in an Organized Health Care Education/Training Program; Visit Provider Nurse Practitioner Gerontology | DX: N31.8 Other neuromuscular dysfunction of bladder (principal); Z43.5 Encounter for attention to cystostomy | CPT/HCPCS: 51705 ==

== ENCOUNTER → 2020-10-30 10:00 | Outpatient (BNVA) | payer MEDICARE, SELFPAY | PROVIDERS: PCP Student in an Organized Health Care Education/Training Program; Referring Provider Student in an Organized Health Care Education/Training Program; Visit Provider Nurse Practitioner Gerontology | DX: N31.9 Neuromuscular dysfunction of bladder, unspecified (principal); G35 Multiple sclerosis | CPT/HCPCS: 51705; 99213 ==

== ENCOUNTER → 2020-11-20 10:20 | Outpatient (BNVA) | payer MEDICARE, SELFPAY | PROVIDERS: PCP Student in an Organized Health Care Education/Training Program; Referring Provider Student in an Organized Health Care Education/Training Program; Visit Provider Nurse Practitioner Gerontology | DX: N31.9 Neuromuscular dysfunction of bladder, unspecified (principal); Z46.6 Encounter for fitting and adjustment of urinary device; G35 Multiple sclerosis | CPT/HCPCS: 51705; 99213 ==

== ENCOUNTER → 2020-12-11 10:24 | Outpatient (BNVA) | payer MEDICARE, SELFPAY | PROVIDERS: PCP Student in an Organized Health Care Education/Training Program; Referring Provider Student in an Organized Health Care Education/Training Program; Visit Provider Nurse Practitioner Gerontology | DX: N31.9 Neuromuscular dysfunction of bladder, unspecified (principal); Z46.6 Encounter for fitting and adjustment of urinary device; G35 Multiple sclerosis | CPT/HCPCS: 51705 ==

== ENCOUNTER → 2021-01-01 10:02 | Outpatient (BNVA) | payer MEDICARE, SELFPAY | PROVIDERS: PCP Student in an Organized Health Care Education/Training Program; Referring Provider Student in an Organized Health Care Education/Training Program; Visit Provider Nurse Practitioner Gerontology | DX: N31.9 Neuromuscular dysfunction of bladder, unspecified (principal); G35 Multiple sclerosis; Z43.5 Encounter for attention to cystostomy | CPT/HCPCS: 51705 ==

== ENCOUNTER → 2021-01-22 10:04 | Outpatient (BNVA) | payer MEDICARE, SELFPAY | PROVIDERS: PCP Student in an Organized Health Care Education/Training Program; Referring Provider Student in an Organized Health Care Education/Training Program; Visit Provider Nurse Practitioner Gerontology | DX: N31.8 Other neuromuscular dysfunction of bladder (principal); G35 Multiple sclerosis; Z43.5 Encounter for attention to cystostomy | CPT/HCPCS: 51705 ==

== ENCOUNTER → 2021-02-10 14:54 | Outpatient (BNVA) | payer MEDICARE, SELFPAY | PROVIDERS: PCP Student in an Organized Health Care Education/Training Program; Referring Provider Student in an Organized Health Care Education/Training Program; Visit Provider Nurse Practitioner Gerontology | DX: N31.8 Other neuromuscular dysfunction of bladder (principal); G35 Multiple sclerosis; Z43.5 Encounter for attention to cystostomy | CPT/HCPCS: 51705 ==

== ENCOUNTER → 2021-03-03 09:38 | Outpatient (BNVA) | payer MEDICARE, SELFPAY | PROVIDERS: PCP Student in an Organized Health Care Education/Training Program; Referring Provider Student in an Organized Health Care Education/Training Program; Visit Provider Nurse Practitioner Gerontology | DX: N31.8 Other neuromuscular dysfunction of bladder (principal); G35 Multiple sclerosis; Z43.5 Encounter for attention to cystostomy | CPT/HCPCS: 51705 ==

== ENCOUNTER → 2021-03-26 09:56 | Outpatient (BNVA) | payer MEDICARE, SELFPAY | PROVIDERS: PCP Student in an Organized Health Care Education/Training Program; Referring Provider Student in an Organized Health Care Education/Training Program; Visit Provider Nurse Practitioner Gerontology | DX: N31.8 Other neuromuscular dysfunction of bladder (principal); G35 Multiple sclerosis; Z43.5 Encounter for attention to cystostomy | CPT/HCPCS: 51705 ==

== ENCOUNTER 2021-04-01 01:55 | Outpatient (CLI) | payer MEDICARE, SELFPAY ==
--- NOTE | 2021-04-01 08:08 | DI.RAD_ITS ---
Exam(s) XR ARTHRITIS SERIES EXAM: XR ARTHRITIS SERIES CLINICAL HISTORY: Eval for arthritis, bony pathology,PAIN LT MIDDLE FINGER,M79.645. TECHNIQUE: 2D digital imaging was performed. COMPARISON: No exams were available for comparison FINDINGS: BONES: No acute fracture is present. No bony destructive lesion is seen. No periarticular osteopenia . JOINTS: No dislocation present. No erosions are identified. The metacarpophalangeal joints are well maintained. Joint space narrowing subchondral sclerosis and periarticular spurring is seen in the i nterphalangeal joints of the hands, left greater than right. SOFT TISSUE: No soft tissue calcifications are appreciated. IMPRESSION: Mild degenerative changes of the hands. DATA REPOSITORY: RADIATION DOSE DELIVERED:
== END 2021-04-01 02:15 ==
PROVIDERS: PCP Student in an Organized Health Care Education/Training Program; Visit Provider Student in an Organized Health Care Education/Training Program
DX: M79.645 Pain in left finger(s) (principal); S69.90XA Unspecified injury of unspecified wrist, hand and finger(s), initial encounter
CPT/HCPCS: 73120

== ENCOUNTER → 2021-04-16 09:31 | Outpatient (BNVA) | payer MEDICARE, SELFPAY | PROVIDERS: PCP Student in an Organized Health Care Education/Training Program; Visit Provider Nurse Practitioner Gerontology | DX: N31.9 Neuromuscular dysfunction of bladder, unspecified (principal); G35 Multiple sclerosis; Z46.6 Encounter for fitting and adjustment of urinary device | CPT/HCPCS: 51705 ==

== ENCOUNTER 2021-04-30 03:42 | Outpatient (CLI) | payer MEDICARE, SELFPAY ==
[2021-04-30 10:48] LABS: HCT 39.7 % (36.0-46.0); HGB 12.6 g/dL (11.2-15.7); MCH 30.7 pg (27.0-33.0); MCHC 31.7 % (32.0-36.0); MCV 96.8 fL (80-95); MPV 10.4 fL (8.0-11.0); Platelet Count 234 10^3/uL (130-400); RDW 13.4 % (11.7-14.6); RDW-SD 48.2 fL; WBC 5.67 10^3/uL (4.4-10.8)
[2021-04-30 11:53] LABS: Anion Gap 2.3 mmol/L (3-11); BUN 12 mg/dL (7-18); CO2 35.7 mmol/L (21.0-32.0); CREATININE 0.7 mg/dL (0.55-1.02); Calcium 9.3 mg/dL (8.5-10.1); Chloride 108 mmol/L (98-107); Glucose 100 mg/dL (74-106); Sodium 146 mmol/L (136-145)
== END 2021-04-30 03:43 | disposition home or self-care (01) ==
LOC: LBO 03:42
PROVIDERS: PCP Student in an Organized Health Care Education/Training Program; Visit Provider Student in an Organized Health Care Education/Training Program
DX: T50.2X5A Adverse effect of carbonic-anhydrase inhibitors, benzothiadiazides and other diuretics, initial encounter; Z86.2 Personal history of diseases of the blood and blood-forming organs and certain disorders involving the immune mechanism
CPT/HCPCS: 36415; 80048; 85027

== ENCOUNTER → 2021-05-07 09:55 | Outpatient (BNVA) | payer MEDICARE, SELFPAY | PROVIDERS: PCP Student in an Organized Health Care Education/Training Program; Visit Provider Nurse Practitioner Gerontology | DX: N31.9 Neuromuscular dysfunction of bladder, unspecified (principal); G35 Multiple sclerosis; Z43.5 Encounter for attention to cystostomy | CPT/HCPCS: 51705 ==

== ENCOUNTER → 2021-05-21 09:59 | Outpatient (BNVA) | payer MEDICARE, SELFPAY | PROVIDERS: PCP Student in an Organized Health Care Education/Training Program; Visit Provider Nurse Practitioner Gerontology | DX: N31.8 Other neuromuscular dysfunction of bladder (principal); Z43.5 Encounter for attention to cystostomy; G35 Multiple sclerosis | CPT/HCPCS: 51705 ==

== ENCOUNTER → 2021-06-02 15:06 | Outpatient (BNVA) | payer MEDICARE, SELFPAY | PROVIDERS: PCP Student in an Organized Health Care Education/Training Program; Referring Provider Student in an Organized Health Care Education/Training Program; Visit Provider Student in an Organized Health Care Education/Training Program | DX: M65.312 Trigger thumb, left thumb (principal); M65.332 Trigger finger, left middle finger; M21.511 Acquired clawhand, right hand; G35 Multiple sclerosis | CPT/HCPCS: 20550; 99213; J1030 ==

== ENCOUNTER 2021-06-05 03:04 | Outpatient (CLI) | payer MEDICARE, SELFPAY ==
[2021-06-05] MEDS: Albuterol HFA 18 GM 200 PUFF INH IH (11:44)
[2021-06-05] MEDS: Inhaler, Assist Device 1 EACH MC (11:45)
--- NOTE | 2021-06-13 10:27 | W.PFT ---
Date of service: 06/05/21 Time of Service: 10:17 Pulmonary Function Test Result Requesting Provider Opal Dejesus Indications: Restrictive lung disease Interpretation Spirometry: There is no airflow limitation. There is no significant bronchodilator effect. MVV and MIP are normal however the MEP is reduced. Lung Volumes: Lung volumes are normal. Diffusion Capacity: Diffusion is normal. Airway Pressure: Airways resistance is normal. Impression Normal pulmonary function test Clinical Correlation therefore is recommended.
--- NOTE | 2021-06-13 10:30 | PFT_ITS ---
Date of service: 06/05/21 Time of Service: 20:43 Pulmonary Function Test Result Indications: Multiple Sclerosis Overnight oximetry performed Total amount of time analyzed 8 hours and 51 minutes. The HOUSTON is 11.6. The amount of time spent under 88% oxygen saturation was 0.1 minutes. The pattern of the overnight oximetry oxygen saturation quickly decreases and increases which could be consistent with obstructive sleep apnea. Interpretation: No significant nocturnal desaturations however there is an elevated HOUSTON in the pattern of the nocturnal oximetry could be consistent with obstructive sleep apnea. Can consider a formal sleep study if appropriate clin ically.
== END 2021-06-05 03:05 | disposition home or self-care (01) ==
LOC: RT 03:04
PROVIDERS: PCP Student in an Organized Health Care Education/Training Program; Visit Provider Student in an Organized Health Care Education/Training Program
DX: G35 Multiple sclerosis (principal); J98.4 Other disorders of lung
CPT/HCPCS: 94060; 94726; 94729; 94762

== ENCOUNTER → 2021-06-11 09:57 | Outpatient (BNVA) | payer MEDICARE, SELFPAY | PROVIDERS: PCP Student in an Organized Health Care Education/Training Program; Visit Provider Nurse Practitioner Gerontology | DX: N31.8 Other neuromuscular dysfunction of bladder (principal); G35 Multiple sclerosis; Z43.5 Encounter for attention to cystostomy | CPT/HCPCS: 51705 ==

== ENCOUNTER → 2021-06-17 10:50 | Outpatient (BNVA) | payer MEDICARE, SELFPAY | PROVIDERS: PCP Student in an Organized Health Care Education/Training Program; Referring Provider Student in an Organized Health Care Education/Training Program; Visit Provider Psychiatry & Neurology Neurology | DX: G35 Multiple sclerosis (principal); N31.9 Neuromuscular dysfunction of bladder, unspecified; M79.2 Neuralgia and neuritis, unspecified; R25.2 Cramp and spasm | CPT/HCPCS: 99213 ==

== ENCOUNTER → 2021-07-02 10:01 | Outpatient (BNVA) | payer MEDICARE, SELFPAY | PROVIDERS: PCP Student in an Organized Health Care Education/Training Program; Visit Provider Nurse Practitioner Gerontology | DX: N31.9 Neuromuscular dysfunction of bladder, unspecified (principal); G35 Multiple sclerosis; Z43.5 Encounter for attention to cystostomy | CPT/HCPCS: 51705 ==

== ENCOUNTER → 2021-07-23 10:26 | Outpatient (BNVA) | payer MEDICARE, SELFPAY | PROVIDERS: PCP Student in an Organized Health Care Education/Training Program; Visit Provider Nurse Practitioner Gerontology | DX: N31.9 Neuromuscular dysfunction of bladder, unspecified (principal); G35 Multiple sclerosis; Z43.5 Encounter for attention to cystostomy | CPT/HCPCS: 51705 ==

== ENCOUNTER 2021-08-05 10:30 | Outpatient (CLI) | payer MEDICARE, SELFPAY ==
[2021-08-05 14:43] LABS: BE 8 mmol/L (-2-3); HCO3 32 mmol/L (22-26); pCO2 49 mmHg (35-45); pH 7.43 (7.35-7.45); pO2 82 mmHg (80-105); sO2 96 % (95-98); tCO2 29 mmol/L (23-27)
[2021-08-05 14:44] LABS: Site Right Radial
[2021-08-05 14:45] LABS: FIO2 ROOM AIR %; FIO2L ROOM AIR L
--- NOTE | 2021-08-06 12:30 | W.PFT ---
Date of service: 08/05/21 Time of Service: 14:44 Pulmonary Function Test Result Requesting Provider Joy Indications: Multiple Sclerosis Interpretation Spirometry: Normal muscle pressures Impression Normal muscle pressures Clinical Correlation therefore is recommended.
== END 2021-08-05 10:31 | disposition home or self-care (01) ==
LOC: RT 10:36
PROVIDERS: PCP Student in an Organized Health Care Education/Training Program; Visit Provider Student in an Organized Health Care Education/Training Program
DX: G35 Multiple sclerosis (principal)
CPT/HCPCS: 82805; 94200; 36600

== ENCOUNTER 2021-08-06 02:07 | Outpatient (CLI) | payer MEDICARE, SELFPAY ==
--- NOTE | 2021-08-06 09:15 | DI.DEXA_ITS ---
Exam(s) XR DEXA BONE DENSITY W/WO JUAN PABLO EXAM: XR DEXA BONE DENSITY W/WO JUAN PABLO CLINICAL HISTORY: high risk for osteoporosis and fracture,OSTEOPENIA, M85.88 TECHNIQUE: COMPARISON: No exams were available for comparison FINDINGS: DEXA scan was performed according to the usual protocol. Please see the accompanying data sheets. F indings for left hip scanning are T-score -1.6 with left femoral neck T-score -2.7. Prior scan of September 2014 showed left hip T-score -1.5. Lumbar spine scanning shows T-score 0.8. Prior examination of 2014 showed lumbar T-score 1.2. IMPRESSION: Measurements are consistent with osteoporosis according to the WHO criteria. RADIATION DOSE DELIVERED: Total DLP
== END 2021-08-06 02:27 ==
PROVIDERS: PCP Student in an Organized Health Care Education/Training Program; Visit Provider Student in an Organized Health Care Education/Training Program
DX: M81.0 Age-related osteoporosis without current pathological fracture (principal); M85.88 Other specified disorders of bone density and structure, other site
CPT/HCPCS: 77080

== ENCOUNTER → 2021-08-13 10:16 | Outpatient (BNVA) | payer MEDICARE, SELFPAY | PROVIDERS: PCP Student in an Organized Health Care Education/Training Program; Referring Provider Student in an Organized Health Care Education/Training Program; Visit Provider Nurse Practitioner Gerontology | DX: N31.9 Neuromuscular dysfunction of bladder, unspecified (principal); G35 Multiple sclerosis; Z43.5 Encounter for attention to cystostomy | CPT/HCPCS: 51705 ==

== ENCOUNTER → 2021-09-03 09:50 | Outpatient (BNVA) | payer MEDICARE, SELFPAY | PROVIDERS: PCP Student in an Organized Health Care Education/Training Program; Visit Provider Nurse Practitioner Gerontology | DX: N31.9 Neuromuscular dysfunction of bladder, unspecified (principal); G35 Multiple sclerosis; Z43.5 Encounter for attention to cystostomy | CPT/HCPCS: 51705 ==

== ENCOUNTER → 2021-09-24 10:21 | Outpatient (BNVA) | payer MEDICARE, SELFPAY | PROVIDERS: PCP Student in an Organized Health Care Education/Training Program; Visit Provider Nurse Practitioner Gerontology | DX: N31.9 Neuromuscular dysfunction of bladder, unspecified (principal); G35 Multiple sclerosis | CPT/HCPCS: 51702 ==

== ENCOUNTER → 2021-10-15 10:35 | Outpatient (BNVA) | payer MEDICARE, SELFPAY | PROVIDERS: PCP Student in an Organized Health Care Education/Training Program; Visit Provider Nurse Practitioner Gerontology | DX: N31.9 Neuromuscular dysfunction of bladder, unspecified (principal); Z46.6 Encounter for fitting and adjustment of urinary device | CPT/HCPCS: 51705 ==

== ENCOUNTER → 2021-11-06 08:57 | Outpatient (BNVA) | payer MEDICARE, SELFPAY | PROVIDERS: PCP Student in an Organized Health Care Education/Training Program; Visit Provider Nurse Practitioner Gerontology | DX: N31.9 Neuromuscular dysfunction of bladder, unspecified (principal) | CPT/HCPCS: 51705 ==

== ENCOUNTER 2021-11-25 06:02 | Outpatient (CLI) | payer MEDICARE, SELFPAY ==
[2021-11-25 16:49] LABS: Anion Gap 7.4 mmol/L (3-11); BUN 12 mg/dL (7-18); CO2 33.6 mmol/L (21.0-32.0); CREATININE 0.7 mg/dL (0.55-1.02); Calculated LDL 158 mg/dL (<100); Chloride 102 mmol/L (98-107); Cholesterol 253 mg/dL (<200); Glucose 88 mg/dL (74-106); HDL Cholesterol 63 mg/dL (40-60); Potassium 3.9 mmol/L (3.5-5.1); Sodium 143 mmol/L (136-145); Triglyceride 162 mg/dL (<150)
== END 2021-11-25 06:03 | disposition home or self-care (01) ==
LOC: LBO 06:02
PROVIDERS: PCP Student in an Organized Health Care Education/Training Program; Visit Provider Student in an Organized Health Care Education/Training Program
DX: E87.4 Mixed disorder of acid-base balance (principal); G70.89 Other specified myoneural disorders; J98.4 Other disorders of lung; M62.81 Muscle weakness (generalized); E78.5 Hyperlipidemia, unspecified
CPT/HCPCS: 36415; 80048; 80061

== ENCOUNTER → 2021-11-26 09:56 | Outpatient (BNVA) | payer MEDICARE, SELFPAY | PROVIDERS: PCP Student in an Organized Health Care Education/Training Program; Visit Provider Nurse Practitioner Gerontology | DX: Z46.6 Encounter for fitting and adjustment of urinary device (principal); N31.9 Neuromuscular dysfunction of bladder, unspecified | CPT/HCPCS: 51702 ==

== ENCOUNTER → 2021-12-17 10:05 | Outpatient (BNVA) | payer MEDICARE, SELFPAY | PROVIDERS: PCP Student in an Organized Health Care Education/Training Program; Referring Provider Student in an Organized Health Care Education/Training Program; Visit Provider Nurse Practitioner Gerontology | DX: N31.9 Neuromuscular dysfunction of bladder, unspecified (principal) | CPT/HCPCS: 51705 ==

== ENCOUNTER → 2022-01-08 09:53 | Outpatient (BNVA) | payer MEDICARE, SELFPAY | PROVIDERS: PCP Student in an Organized Health Care Education/Training Program; Referring Provider Student in an Organized Health Care Education/Training Program; Visit Provider Nurse Practitioner Gerontology | DX: N31.9 Neuromuscular dysfunction of bladder, unspecified (principal) | CPT/HCPCS: 51705 ==

== ENCOUNTER 2022-01-27 13:47 | Emergency (ER) | payer MEDICARE, SELFPAY ==
[2022-01-27 13:56] VITALS: BP 104/65; PULSE 69; RESP 20; TEMP 37.4; O2SAT 96
--- NOTE | 2022-01-27 14:00 | DI.RAD_ITS ---
Exam(s) XR SHOULDER RT COMPLETE 2+V EXAM: XR SHOULDER RT COMPLETE 2+V CLINICAL HISTORY: Lifting injury. TECHNIQUE: 2D digital imaging was performed of the right shoulder. Six images were obtained. AP, G rashey, Y-view and axillary views were obtained. COMPARISON: No exams were available for comparison FINDINGS: BONES: No acute fracture is present. No bony destructive lesion is seen. JOINTS: No dislocation present. Marked degenerative changes are seen at the acromioclavicular joint. Mild degenerative changes are seen at the glenohumeral joint. Mild hypertrophic changes are seen at t he greater tuberosity. SOFT TISSUE: Normal. IMPRESSION: 1. Osteoarthritis of the right shoulder. 2. No acute abnormality. DATA REPOSITORY: RADIATION DOSE DELIVERED:
--- NOTE | 2022-01-27 14:51 | W.ED.GENAD ---
Discharge Plan Disposition Patient Disposition: HOME Condition: Stable Discharge Details Clinical Impression: Right shoulder strain Primary Care Provider: Opal Dejesus ED Provider: Chayito Austin Home Meds and New Rx's Prescriptions: Continued baclofen 20 mg tablet 30 mg PO TID Qty: 405 3RF furosemide 20 mg tablet 40 mg PO DAILY Qty: 180 3RF Rx Instructions: check BMP monthly naproxen 500 mg tablet 500 mg PO BID PRN (Reason: inflammation; hand pain) Qty: 30 1RF pravastatin 20 mg tablet 20 mg PO HS Qty: 90 4RF ascorbic acid (vitamin C) 500 MG tablet 500 mg PO BID apaqanirnec-owjduysdy-efo C-Mn [Glucosamine 1500 Complex] 1 EACH capsule 1 ea PO BID duloxetine 20 mg capsule,delayed release(DR/EC) 40 mg PO DAILY Qty: 180 3RF oxybutynin chloride 15 mg tablet extended release 24hr 15 mg PO DAILY Qty: 90 3RF multivitamin Tablet 1 tab PO DAILY cyanocobalamin (vitamin B-12) [Vitamin B-12] 1,000 mcg Tablet 1,000 mg PO DAILY docusate sodium [Colace] 100 mg Capsule 300 mg PO HS Caltrate 600 plus D 600 mg (1,500 mg)-800 unit Tablet,Chewable 1 tab PO BID Discharge Instructions Instructions: Shoulder Sprain (ED) Additional Instructions: Your x-ray today showed arthritis but no other acute findings. Your symptoms may be due to a shoulder strain. Rest, ice, and elevate the affected area as much as possible. Alternate tylenol and motrin as needed and directed for pain. Follow-up with your primary care doctor for reevaluation and for referral to physical therapy and/or orthopedics if your symptoms do not improve or worsen and for referral for MRI of your shoulder if indicated. Return immediately to the emergency department if you develop any worsening or new concerning symptoms. Referrals: Ashu Long MD [ [facility] STAFF PHYSICIAN] - Discharge Data Discharge Physician: Chayito Austin Medical Decision Making 81-year-old bwmki-ckpw-hjapbxld female presents with right shoulder pain after lifting up her grandson 2 weeks ago. She has persistent pain that is worse with movement. She has chronic right upper and lower extremity paresthesias secondary to her MS and states this is no worse than usual. Right shoulder area appears normal to inspection with tenderness to palpation to AC joint and right anterior shoulder. There is no obvious deformity. There is no evidence of trauma or cellulitis. She has good muscle strength in her right upper extremity without focal deficits and is neurovascularly intact. Patient referred for x-ray on arrival which noted osteoarthritis but no other acute findings. Discussed with patient that her symptom presentation could be due to shoulder strain/sprain in the setting of osteoarthritis. We will place a sling. She is advised on the importance of gentle range of motion exercises to prevent adhesive capsulitis. Advised on the importance of RICE, alternating Tylenol and Motrin. She declined any medication prescriptions. Advised to follow-up with her primary care doctor for reevaluation and for referral for physical therapy or to orthopedics if symptoms do not improve or worsen for consideration for cortisone injection or MRI if indicated. Usual and customary return precautions given prior to discharge. Medical Records Medical records reviewed: Yes I reviewed the patient's medical records. Imaging Data Radiologic Study: Radiologist's impression: XR SHOULDER RT COMPLETE 2+V CLINICAL HISTORY: ? Lifting injury.? TECHNIQUE:? 2D digital imaging was performed of the right shoulder.? Six images were obtained.? AP, Grashey, Y-view and axillary views were obtained. COMPARISON:? No exams were available for comparison FINDINGS: BONES: No acute fracture is present. No bony destructive lesion is seen. JOINTS: No dislocation present. Marked degenerative changes are seen at the acromioclavicular joint. Mild degenerative changes are seen at the glenohumeral joint. Mild hypertrophic changes are seen at the greater tuberosity. SOFT TISSUE: Normal. IMPRESSION: 1. Osteoarthritis of the right shoulder. 2. No acute abnormality. HPI General Mode of arrival: ambulatory. Date/Time Provider Initiated Documentation: 01/27/22 14:01. Limitations to Documentation: no limitations. Information obtained by: patient. HPI Narrative: Patient is an 81-year-old apcoq-oyso-nfgnsovx female who presents with right shoulder pain that started when she lifted up her grandson 2 weeks ago. She states pain is radiating down to her right upper arm with tingling into her fingertips. She states she often has paresthesias in her right arm and right leg due to her multiple sclerosis. She states the pain in her right shoulder is constant but worse with movement. She has taken ibuprofen for pain without significant relief. Related Data Home Medications Medication Instructions Recorded Confirmed ascorbic acid (vitamin C) 500 mg 500 mg PO BID 11/11/12 01/27/22 tablet sscjlrsftlk-hxrafubug-zjp C-Mn 500 1 ea PO BID 11/28/13 01/27/22 mg-400 mg capsule (Glucosamine 1) cyanocobalamin (vitamin B-12) 1,000 mg PO DAILY 05/11/18 01/27/22 1,000 mcg tablet (Vitamin B-12) docusate sodium 100 mg capsule 300 mg PO HS 05/11/18 01/27/22 (Colace) multivitamin 1 tab PO DAILY 05/11/18 01/27/22 calcium carbonate 600 mg-vitamin 1 tab PO BID 05/13/18 01/27/22 D3 20 mcg (800 unit) chewable tablet (Caltrate 600 plus D) pravastatin 20 mg tablet 20 mg PO HS #90 tabs 03/27/21 01/27/22 furosemide 20 mg tablet 40 mg PO DAILY #180 tabs 04/22/21 01/27/22 naproxen 500 mg tablet 500 mg PO BID PRN inflammation; 04/23/21 01/27/22 hand pain #30 tabs baclofen 20 mg tablet 30 mg PO TID #405 tabs 06/17/21 01/27/22 duloxetine 20 mg capsule,delayed 40 mg PO DAILY #180 caps 08/09/21 01/27/22 release oxybutynin chloride 15 mg 15 mg PO DAILY #90 tabs 01/16/22 01/27/22 tablet,extended release 24 hr Previous Rx's Medication Instructions Recorded pravastatin 20 mg tablet 20 mg PO HS #90 tabs 03/27/21 furosemide 20 mg tablet 40 mg PO DAILY #180 tabs 04/22/21 naproxen 500 mg tablet 500 mg PO BID PRN inflammation; 04/23/21 hand pain #30 tabs baclofen 20 mg tablet 30 mg PO TID #405 tabs 06/17/21 duloxetine 20 mg capsule,delayed 40 mg PO DAILY #180 caps 08/09/21 release oxybutynin chloride 15 mg 15 mg PO DAILY #90 tabs 01/16/22 tablet,extended release 24 hr Allergies Allergy/AdvReac Type Severity Reaction Status Date / Time lisinopril AdvReac Severe cough/wheez Verified 01/27/22 13:59 ing Iodine and Iodide Containing AdvReac Intermediate redness Verified 01/27/22 13:59 Produc pregabalin [From Lyrica] AdvReac whoosy Verified 01/27/22 13:59 reported 04/2017 iodine Allergy Uncoded 01/27/22 13:59 General Stated Complaint: Orthopedic XANDER: 4 Review of Systems All systems reviewed & are unremarkable except as noted in HPI and below Constitutional Constitutional: Reports as per HPI, Denies chills and Denies fever(s) Eyes Eyes: Denies blurry vision ENT Ears, Nose, Mouth, and Throat: Denies dizziness, Denies sore throat and Denies throat swelling Cardiovascular Cardiovascular: Denies chest pain and Denies dyspnea Respiratory Respiratory: Denies cough and Denies dyspnea Gastrointestinal Gastrointestinal: Denies abdominal pain, Denies diarrhea and Denies vomiting Genitourinary Genitourinary: Denies hematuria and Denies dysuria Musculoskeletal Musculoskeletal: Denies back pain and Denies numbness Integumentary/Breasts Skin/Breast: Denies lesions and Denies rash Neurologic Neurologic: Denies dizziness, Denies localized weakness and Denies numbness Allergic/Immunologic Allergic/Immunologic: Denies throat swelling PFSH All Active Problems (Updated 01/27/22 @ 15:02 by Chayito Austin DO) Right shoulder strain (Acute) Obesity (Chronic) Central sleep apnea (Acute) Mixed sleep apnea (Acute) Hypercapnia with mixed acid-base disorder (Acute) Neck muscle strain (Acute) Rt, possible SCM mm spasm, [ ] PT Other specified disorders of bone density and structure, other site (Acute) Medicare needs the M85.88 (vs just the M85.80) .. Claw hand of right upper extremity (Acute) Trigger finger, left middle finger (Acute) Trigger thumb, left thumb (Acute) Right-sided muscle weakness (Acute) Hx MS with R>L effected more ... Active daily, with chores, stretching, hobbies.. [ ] band/weight work? Metacarpophalangeal joint pain (Chronic) Joint space narrowing, subchondral sclerosis, periarticular spurring per XR (04/01/21) Hand pain (Acute) lft swelling, rt pinky contracted.. [ ] PT, Naproxen Injury of little finger (Acute) Pain of left middle finger (Acute) Leg pain, bilateral (Acute) Aches, cramps (joel horses, L>R), weakness ... presuming 2' MS, but appreciate re-evaluation. 03/2021 Spasticity (Acute) Leg edema (Chronic 09/2018) Hx LE edema, but exercise and elevation had managed most of the swelling. Recent worsening seems 2' lack of exercise (due to offloading of sacral/buttock wound) and serious nephrolith. Swelling may be compounded by kidney infection, bleed and ABx. Responding well to 40mg --> manage with lasix and monitor Cr/K for now. Trial tubi-felt hanger and ankle rolls as well.... 10/19/18, ik Significantly better after stopping gabapentin 11/2018. Wheelchair dependent (Acute) Obesity (BMI 30.0-34.9) (Acute) Wound of right buttock (Acute 04/09/17) managed by wound service [facility], following punch biopsy for wart 11/30/16 Dr Toribio. 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 09/23/17 non healing right ischia wound. providing in home care 01/12/18 [place] [facility] still managed there. has home health to do drsg changes q3 days and prn. next wound f/[place] ov is [place]07/2018 [place] [facility]-new R groin wound that communicates w/original 11/2016 wound-sent to Plastics to schedule I&D 03/18/18 [facility] - Continued right groin wound. Cont dressing. Scheduled for I&D Dr. Gutierrez 03/23/18. 03/23/18: [facility] OR for I and D. Has Home health. doing drsg changes Q 3days/prn [place] [facility] [place]/18) next f/u ov there 04/13/18. Osteopenia (Acute 10/11/14) left hip T score -1.5 Neuropathic pain (Acute 11/04/16) left leg, great toe to hip; gabapentin caused excessive edema Benign neoplasm of colon (Acute 11/10/11) Nonsustained paroxysmal supraventricular tachycardia (Acute) Sepsis (Acute) Ambulatory dysfunction (Acute) Nephrolithiasis (Acute) D/C from [facility], s/p renal Found on U/S, post UTI .. hospitalized 05/13/[address] Cancino. CT completed to reveal right stone burdern. Toxic metabolic encephalopathy (Acute) Change in mental status (Acute) UTI (urinary tract infection) (Acute) Tubular adenoma (Chronic) 08/02/2005 Neurogenic bladder (Chronic) due to multiple sclerosis; requires suprapubic catheter Note: [facility] sugggests staying at newly placed 18FR catheter. 10/05/18, ik Non-pressure chronic ulcer of buttock with fat layer exposed (Acute) 04/27/18 [facility] Last OV 11/16/18. 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 Ischial/groin I&D 03/23/18 after 2 wounds were found to communicate with each other. Packing was found in wounds. whicch is ? to be the reason for non-healing Hypertension (Chronic) 09/12/2007, well-managed, 05/2018, ik Multiple sclerosis (Chronic) 08/01/1974 Hyperlipemia (Chronic) 03/09/2006 UTI (urinary tract infection) (Acute) Bacteremia (Acute) Urinary catheter in place (Chronic) Cough (Acute) Medical History H/O squamous cell carcinoma 10/21/21 Dr Catarino Menjivar C&D of L forehead lesion Surgical History Cervical rib s/p excision 1973 Hx of colonoscopy with polypectomy incision and drainage (03/23/18) [facility]-wound debridement of chronic ischial/groin wound after wart removal; 11/2016. S/P cataract extraction S/P ureteral stent placement (09/16/18) Suprapubic catheter and vaginal sling 2011 Family History Mother , CHF at age 87. 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 [place] What is your relationship status?: Panel score (0-1 are the most socially isolated patients): 1 Frequency: 3-4 times per week Seatbelt use: always Water heater temp set <120 deg: Yes Working smoke detector in home: Yes Fire extinguisher in home: Yes Carbon monox detector in home: Yes Firearms in home: Yes Do you feel safe at home: Yes Do you feel safe in your relationship?: Yes Exam Const General: cooperative, healthy appearing and no acute distress Orientation: alert, awake and oriented x3 HENMT Head: normal to inspection Mouth: oral mucosae normal Eyes General: appearance normal, both eyes and all related structures Neck Neck: normal visual inspection Resp Effort & Inspection: normal respiratory effort and able to speak in complete sentences Cardio Rate: regular rate Skin General skin exam: no rashes or lesions noted Neuro General: patient alert, patient awake and patient oriented x3 Motor: muscle tone normal throughout and strength 5/5 throughout Sensory Exam: no sensory deficits noted Other: Normal right hand felt hanger. Extrem Shoulder/upper arm images: 1. Tenderness to palpation overlying right lateral clavicle and right anterior shoulder. She has mild pain with range of motion of her right anterior shoulder. There is no significant limitation of range of motion. No tenderness to palpation of her remainder of clavicle or upper extremity. Right radial and ulnar pulses intact. Psych Appearance: grossly normal Affect: normal affect Course Vital Signs Vital signs: Vital Signs Temperature 99.3 F 01/27/22 13:56 Pulse 69 01/27/22 13:56 Respiratory Rate 20 01/27/22 13:56 Blood Pressure 104/65 01/27/22 13:56 Pulse Oximetry 96 01/27/22 13:56 Temperature 99.3 F 01/27/22 13:56 Temperature Source Temporal Artery Scan 01/27/22 13:56 Pulse 69 01/27/22 13:56 Respiratory Rate 20 01/27/22 13:56 Respiratory Effort 01/27/22 14:00 Blood Pressure 104/65 01/27/22 13:56 Blood Pressure Position Sitting 01/27/22 13:56 Pulse Oximetry 96 01/27/22 13:56 Oxygen Delivery Method Room Air 01/27/22 13:56 Oxygen Flow Rate 0 01/27/22 13:56 Pain Level 10 01/27/22 14:01
== END 2022-01-27 15:08 | disposition home or self-care (01) ==
PROVIDERS: Emergency Provider Physician Assistant; PCP Student in an Organized Health Care Education/Training Program
DX: S46.811A Strain of other muscles, fascia and tendons at shoulder and upper arm level, right arm, initial encounter (principal); X50.0XXA Overexertion from strenuous movement or load, initial encounter
CPT/HCPCS: 99283; 73030

== ENCOUNTER → 2022-01-28 09:29 | Outpatient (BNVA) | payer MEDICARE, SELFPAY | PROVIDERS: PCP Student in an Organized Health Care Education/Training Program; Referring Provider Student in an Organized Health Care Education/Training Program; Visit Provider Nurse Practitioner Gerontology | DX: N31.8 Other neuromuscular dysfunction of bladder (principal); G35 Multiple sclerosis | CPT/HCPCS: 51705 ==

== ENCOUNTER → 2022-02-18 13:54 | Outpatient (BNVA) | payer MEDICARE, SELFPAY | PROVIDERS: PCP Student in an Organized Health Care Education/Training Program; Referring Provider Student in an Organized Health Care Education/Training Program; Visit Provider Nurse Practitioner Gerontology | DX: N31.9 Neuromuscular dysfunction of bladder, unspecified (principal); G35 Multiple sclerosis | CPT/HCPCS: 51705 ==

== ENCOUNTER → 2022-03-09 15:04 | Outpatient (BNVA) | payer MEDICARE, SELFPAY | PROVIDERS: PCP Student in an Organized Health Care Education/Training Program; Referring Provider Student in an Organized Health Care Education/Training Program; Visit Provider Nurse Practitioner Gerontology | DX: N31.9 Neuromuscular dysfunction of bladder, unspecified (principal) | CPT/HCPCS: 51705 ==

== ENCOUNTER → 2022-04-01 09:25 | Outpatient (BNVA) | payer MEDICARE, SELFPAY | PROVIDERS: PCP Student in an Organized Health Care Education/Training Program; Referring Provider Student in an Organized Health Care Education/Training Program; Visit Provider Nurse Practitioner Gerontology | DX: G35 Multiple sclerosis (principal); N31.9 Neuromuscular dysfunction of bladder, unspecified | CPT/HCPCS: 51705 ==

== ENCOUNTER → 2022-04-22 10:33 | Outpatient (BNVA) | payer MEDICARE, SELFPAY | PROVIDERS: PCP Student in an Organized Health Care Education/Training Program; Referring Provider Student in an Organized Health Care Education/Training Program; Visit Provider Nurse Practitioner Gerontology | DX: G35 Multiple sclerosis (principal); N31.9 Neuromuscular dysfunction of bladder, unspecified | CPT/HCPCS: 51705 ==

== ENCOUNTER → 2022-06-03 08:12 | Outpatient (BNVA) | payer MEDICARE, SELFPAY | PROVIDERS: PCP Student in an Organized Health Care Education/Training Program; Referring Provider Student in an Organized Health Care Education/Training Program; Visit Provider Nurse Practitioner Gerontology | DX: G35 Multiple sclerosis (principal); N31.9 Neuromuscular dysfunction of bladder, unspecified | CPT/HCPCS: 51705 ==

== ENCOUNTER 2022-06-10 11:13 | Outpatient (CLI) | payer MEDICARE, SELFPAY ==
[2022-06-10 10:29] LABS: Anion Gap 4.5 mmol/L (3-11); BUN 11 mg/dL (7-18); CO2 33.5 mmol/L (21.0-32.0); CREATININE 0.8 mg/dL (0.55-1.02); Calcium 9.1 mg/dL (8.5-10.1); Chloride 107 mmol/L (98-107); Estimated GFR 73.98 (mL/min/1.73m2); Glucose 103 mg/dL (74-106); Potassium 3.6 mmol/L (3.5-5.1); Sodium 145 mmol/L (136-145)
== END 2022-06-10 11:14 | disposition home or self-care (01) ==
LOC: LBO 11:14
PROVIDERS: PCP Student in an Organized Health Care Education/Training Program; Visit Provider Student in an Organized Health Care Education/Training Program
DX: E87.4 Mixed disorder of acid-base balance (principal); J98.4 Other disorders of lung; G70.9 Myoneural disorder, unspecified
CPT/HCPCS: 36415; 80048

== ENCOUNTER → 2022-06-16 11:18 | Outpatient (BNVA) | payer MEDICARE, SELFPAY | PROVIDERS: PCP Student in an Organized Health Care Education/Training Program; Referring Provider Student in an Organized Health Care Education/Training Program; Visit Provider Psychiatry & Neurology Neurology | DX: G35 Multiple sclerosis (principal); N31.9 Neuromuscular dysfunction of bladder, unspecified; M79.2 Neuralgia and neuritis, unspecified; R25.2 Cramp and spasm | CPT/HCPCS: 99214 ==

== ENCOUNTER → 2022-06-29 14:04 | Outpatient (BNVA) | payer MEDICARE, SELFPAY | PROVIDERS: PCP Student in an Organized Health Care Education/Training Program; Referring Provider Student in an Organized Health Care Education/Training Program; Visit Provider Nurse Practitioner Gerontology | DX: Z46.6 Encounter for fitting and adjustment of urinary device (principal); Z96.0 Presence of urogenital implants; N31.9 Neuromuscular dysfunction of bladder, unspecified | CPT/HCPCS: 99211 ==

== ENCOUNTER → 2022-07-22 11:01 | Outpatient (BNVA) | payer MEDICARE, SELFPAY | PROVIDERS: PCP Student in an Organized Health Care Education/Training Program; Referring Provider Student in an Organized Health Care Education/Training Program; Visit Provider Nurse Practitioner Gerontology | DX: Z46.6 Encounter for fitting and adjustment of urinary device (principal); Z96.0 Presence of urogenital implants; N31.9 Neuromuscular dysfunction of bladder, unspecified | CPT/HCPCS: 99211 ==

== ENCOUNTER → 2022-08-12 11:24 | Outpatient (BNVA) | payer MEDICARE, SELFPAY | PROVIDERS: PCP Student in an Organized Health Care Education/Training Program; Referring Provider Student in an Organized Health Care Education/Training Program; Visit Provider Nurse Practitioner Gerontology | DX: Z43.5 Encounter for attention to cystostomy (principal); N31.9 Neuromuscular dysfunction of bladder, unspecified | CPT/HCPCS: 51705 ==

== ENCOUNTER → 2022-08-31 10:03 | Outpatient (BNVA) | payer MEDICARE, SELFPAY | PROVIDERS: PCP Student in an Organized Health Care Education/Training Program; Referring Provider Student in an Organized Health Care Education/Training Program; Visit Provider Nurse Practitioner Gerontology | DX: N31.9 Neuromuscular dysfunction of bladder, unspecified (principal); Z43.5 Encounter for attention to cystostomy | CPT/HCPCS: 51705 ==

== ENCOUNTER → 2022-09-21 09:55 | Outpatient (BNVA) | payer MEDICARE, SELFPAY | PROVIDERS: PCP Student in an Organized Health Care Education/Training Program; Visit Provider Nurse Practitioner Gerontology | DX: Z46.6 Encounter for fitting and adjustment of urinary device (principal); Z96.0 Presence of urogenital implants; N31.9 Neuromuscular dysfunction of bladder, unspecified | CPT/HCPCS: 99211 ==

== ENCOUNTER → 2022-10-14 10:35 | Outpatient (BNVA) | payer MEDICARE, SELFPAY | PROVIDERS: PCP Student in an Organized Health Care Education/Training Program; Visit Provider Nurse Practitioner Gerontology | DX: Z43.5 Encounter for attention to cystostomy (principal); N31.9 Neuromuscular dysfunction of bladder, unspecified | CPT/HCPCS: 99211 ==

== ENCOUNTER → 2022-11-02 13:22 | Outpatient (BNVA) | payer MEDICARE, SELFPAY | PROVIDERS: PCP Student in an Organized Health Care Education/Training Program; Visit Provider Nurse Practitioner Gerontology | DX: Z43.5 Encounter for attention to cystostomy (principal); N31.9 Neuromuscular dysfunction of bladder, unspecified | CPT/HCPCS: 99211 ==

== ENCOUNTER → 2022-11-17 11:33 | Outpatient (BNVA) | payer MEDICARE, SELFPAY | PROVIDERS: PCP Student in an Organized Health Care Education/Training Program; Referring Provider Student in an Organized Health Care Education/Training Program; Visit Provider Urology | DX: Z43.5 Encounter for attention to cystostomy (principal); N31.9 Neuromuscular dysfunction of bladder, unspecified; G35 Multiple sclerosis | CPT/HCPCS: 51705 ==

== ENCOUNTER → 2022-12-03 14:26 | Outpatient (BNVA) | payer MEDICARE, SELFPAY | PROVIDERS: PCP Student in an Organized Health Care Education/Training Program; Visit Provider Nurse Practitioner Gerontology | DX: Z43.5 Encounter for attention to cystostomy (principal); N31.9 Neuromuscular dysfunction of bladder, unspecified | CPT/HCPCS: 51705 ==

== ENCOUNTER 2022-12-17 09:16 | Observation (INO) | payer MEDICARE, SELFPAY ==
[2022-12-17] VITALS (16 sets, daily range): BP systolic 147–203; BP diastolic 54–84; PULSE 65–80; RESP 15–23; TEMP 36.6–37.5; O2SAT 92–100; BMI 31.5
--- NOTE | 2022-12-17 09:41 | W.ED.GENAD ---
Discharge Plan Disposition Patient Disposition: Admit to [facility] Discharge Details Chief Complaint: AMS/LOC Clinical Impression: Acute cholecystitis Primary Care Provider: Opal Dejesus ED Provider: Chilango Hernandez Home Meds and New Rx's Prescriptions: No Action naproxen 500 mg tablet 500 mg PO BID PRN (Reason: inflammation; hand pain) Qty: 30 1RF ascorbic acid (vitamin C) 500 MG tablet 500 mg PO BID [id number]-[id number] C-Mn [Glucosamine 1500 Complex] 1 EACH capsule 1 ea PO BID oxybutynin chloride 15 mg tablet extended release 24hr 15 mg PO DAILY Qty: 90 3RF pravastatin 20 mg tablet 20 mg PO HS Qty: 90 4RF baclofen 20 mg tablet See Rx Instructions .ROUTE .COMPLEX Qty: 405 3RF Dose Instruction: TAKE 1 AND 1/2 TABLETS THREE TIMES DAILY Rx Instructions: TAKE 1 AND 1/2 TABLETS THREE TIMES DAILY duloxetine 20 mg capsule,delayed release(DR/EC) 40 mg PO DAILY Qty: 180 3RF furosemide 20 mg tablet 40 mg PO DAILY Qty: 180 3RF Rx Instructions: check BMP monthly multivitamin Tablet 1 tab PO DAILY cyanocobalamin (vitamin B-12) [Vitamin B-12] 1,000 mcg Tablet 1,000 mg PO DAILY docusate sodium [Colace] 100 mg Capsule 300 mg PO HS Caltrate 600 plus D 600 mg (1,500 mg)-800 unit Tablet,Chewable 1 tab PO BID Medical Decision Making 82 yo female with hx of MS and neurogenic bladder with chronic suprapubic catheter who can't ambulate and uses a motorized scooter normally, comes in with her with concerns for general weakness, not eating or drinking much since yesterday. She has not had any fevers, no complaints of pain, no cough. She has had uti's per in the past which presented similarly to her presentation now. She is hemodyanamically stable on arrival though does appear fatigued. She is concscious and orienter to person place and time. She denies any headache, chest pain, dyspnea, abdominal pain. She normally has weakness R>L due to her MS. SHe is able to lift both arms up and has no drift, both of her lower extremities drift and hit the bed which the states is normal for her and is why she uses a scooter, she has clear speech, eomi, perrl, no significant facial assymetry, no findings to suggest cva. Her symptoms of general malaise are concerning for dehydration vs uti vs electrolyte abnormality, will proceed with ua, cbc, cmp and reassess after iv fluids. Will also send fluvid though doesn't have any respiratory symptoms labs show elevated lft's that is new for her, on reassessment is tender with deep palpation to the ruq, will proceed with ct to further evaluate ct shows evidence of acute cholecystitis, pt stable, will consult general surgery Differential Diagnosis Differential Diagnosis: uti, electrolyte abnormality, deconditioning, Imaging Data Radiologic Study: Attestation: I personally reviewed and interpreted this imaging study as follows: Imaging: CT Scan Radiologist's impression: acute cholecystitis Lab Data Lab results reviewed: Yes I reviewed the patient's lab results. HPI General Mode of arrival: ambulatory. Date/Time Provider Initiated Documentation: 12/17/22 09:18. Limitations to Documentation: no limitations. Information obtained by: patient. History of Present Illness 82 year old F presents to the emergency department with the chief complaint of general malaise, described as moderate, Patient started experiencing this day(s) (1) and it has been constant. No relieving factors improve symptom(s), No exacerbating factors reported . Patient notes denies chest pain, cough, fever/chills and shortness of breath. Patient did receive the following treatments prior to arrival, none Related Data Home Medications Medication Instructions Recorded Confirmed ascorbic acid (vitamin C) 500 mg 500 mg PO BID 11/11/12 10/29/22 tablet [id number]-[id number] C-Mn 500 1 ea PO BID 11/28/13 10/29/22 mg-400 mg capsule (Glucosamine 1) cyanocobalamin (vitamin B-12) 1,000 mg PO DAILY 05/11/18 10/29/22 1,000 mcg tablet (Vitamin B-12) docusate sodium 100 mg capsule 300 mg PO HS 05/11/18 10/29/22 (Colace) multivitamin 1 tab PO DAILY 05/11/18 10/29/22 calcium carbonate 600 mg-vitamin 1 tab PO BID 05/13/18 10/29/22 D3 20 mcg (800 unit) chewable tablet (Caltrate 600 plus D) naproxen 500 mg tablet 500 mg PO BID PRN inflammation; 04/23/21 10/29/22 hand pain #30 tabs oxybutynin chloride 15 mg 15 mg PO DAILY #90 tabs 01/16/22 10/29/22 tablet,extended release 24 hr pravastatin 20 mg tablet 20 mg PO HS #90 tabs 04/05/22 10/29/22 baclofen 20 mg tablet See Rx Instructions .Route 05/28/22 10/29/22 .COMPLEX #405 tabs duloxetine 20 mg capsule,delayed 40 mg PO DAILY #180 caps 06/11/22 10/29/22 release furosemide 20 mg tablet 40 mg PO DAILY #180 tabs 10/23/22 10/29/22 Previous Rx's Medication Instructions Recorded naproxen 500 mg tablet 500 mg PO BID PRN inflammation; 04/23/21 hand pain #30 tabs oxybutynin chloride 15 mg 15 mg PO DAILY #90 tabs 01/16/22 tablet,extended release 24 hr pravastatin 20 mg tablet 20 mg PO HS #90 tabs 04/05/22 baclofen 20 mg tablet See Rx Instructions .Route 05/28/22 .COMPLEX #405 tabs duloxetine 20 mg capsule,delayed 40 mg PO DAILY #180 caps 06/11/22 release furosemide 20 mg tablet 40 mg PO DAILY #180 tabs 10/23/22 Allergies Allergy/AdvReac Type Severity Reaction Status Date / Time lisinopril AdvReac Severe cough/wheez Verified 10/29/22 09:13 ing Iodine and Iodide Containing AdvReac Intermediate redness Verified 10/29/22 09:13 Produc pregabalin [From Lyrica] AdvReac whoosy Verified 10/29/22 09:13 reported 04/2017 iodine Allergy Uncoded 10/29/22 09:13 General Stated Complaint: AMS/LOC XANDER: 3 Review of Systems All systems reviewed & are unremarkable except as noted in HPI and below Constitutional Constitutional: Denies chills and Denies fever(s) Cardiovascular Cardiovascular: Denies chest pain and Denies dyspnea Respiratory Respiratory: Denies cough and Denies dyspnea Gastrointestinal Gastrointestinal: Denies abdominal pain, Denies nausea and Denies vomiting Musculoskeletal Musculoskeletal: Denies joint swelling Integumentary/Breasts Skin/Breast: Denies rash PFSH All Active Problems (Updated 12/17/22 @ 13:26 by Chilango Hernandez MD) Acute cholecystitis (Acute) Acute cholecystitis (Acute) Osteopenia of spine (Acute) per DEXA (2014, 2008) .. Medicare needs the M85.88 (vs just the M85.80) Central sleep apnea (Acute) Mixed sleep apnea (Acute) Hypercapnia with mixed acid-base disorder (Acute) Neck muscle strain (Acute) Rt, possible SCM mm spasm, [ ] PT Claw hand of right upper extremity (Acute) Trigger finger, left middle finger (Acute) Trigger thumb, left thumb (Acute) Right-sided muscle weakness (Acute) Hx MS with R>L effected more ... Active daily, with chores, stretching, hobbies.. [ ] band/weight work? Metacarpophalangeal joint pain (Chronic) Joint space narrowing, subchondral sclerosis, periarticular spurring per XR (04/01/21) Hand pain (Acute) lft swelling, rt pinky contracted.. [ ] PT, Naproxen Injury of little finger (Acute) Pain of left middle finger (Acute) Leg pain, bilateral (Acute) Aches, cramps (joel horses, L>R), weakness ... presuming 2' MS, but appreciate re-evaluation. 03/2021 Spasticity (Acute) Leg edema (Chronic 09/2018) Hx LE edema, but exercise and elevation had managed most of the swelling. Recent worsening seems 2' lack of exercise (due to offloading of sacral/buttock wound) and serious nephrolith. Swelling may be compounded by kidney infection, bleed and ABx. Responding well to 40mg --> manage with lasix and monitor Cr/K for now. 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 10/19/18, ik Significantly better after stopping gabapentin 11/2018. Osteopenia (Acute 10/11/14) left hip T score -1.5 Nonsustained paroxysmal supraventricular tachycardia (Acute) Nephrolithiasis (Acute) D/C from [facility] [place], s/p renal Found on U/S, post UTI .. hospitalized 05/13/[address] Cancino. CT completed to reveal right stone burdern. Change in mental status (Acute) Neurogenic bladder (Chronic) due to multiple sclerosis; requires suprapubic catheter Note: [facility] [place] sugggests staying at newly placed 18FR catheter. 10/05/18, ik Hypertension (Chronic) 09/12/2007, well-managed, 05/2018, ik Multiple sclerosis (Chronic) 08/01/[address] (Chronic) Sees UROL q 6-8 weeks. Medical History Ambulatory dysfunction Benign neoplasm of colon (11/10/11) H/O squamous cell carcinoma 10/21/21 Dr Toribio Shave C&D of L forehead lesion Neuropathic pain (11/04/16) left leg, great toe to hip; gabapentin caused excessive edema Non-pressure chronic ulcer of buttock with fat layer exposed 04/27/18 Wound Healing Ctr [facility] [place] Last OV 11/16/18. RTC 7-10days Non-pressure chronic ulcer of right lower leg with fat layer exposed 04/27/18 [facility] [place] Obesity (BMI 30.0-34.9) Right shoulder injury Pulled mm during transfer (?) Sepsis TIA (transient ischemic attack) (08/2018) CT (NEG) Tingling face, numb in left arm... Toxic metabolic encephalopathy Tubular adenoma 08/02/2005 Wart removal 2016. Ischial/groin I&D 03/23/18 after 2 wounds were found to communicate with each other. Packing was found in wounds. whicch is ? to be the reason for non-healing Wheelchair dependent Wound of right buttock (04/09/17) managed by wound service [facility] [place], following punch biopsy for wart 11/30/16 Dr Toribio. 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 09/23/17 non healing right ischia wound. providing in home care 01/12/18 ov at [facility] wound healing center. still managed there. has home health to do drsg changes q3 days and prn. next wound f/u ov is 02/07/2018 at [facility]. 02/22/18-[facility] [place]-new R groin wound that communicates w/original 11/2016 wound-sent to Plastics to schedule I&D 03/18/18 [facility] [place] W[facility]aling Center - Continued right groin wound. Cont dressing. Scheduled for I&D Dr. Gutierrez 03/23/18. 03/23/18: [facility] [place] OR for I and D. Has Home health. doing drsg changes Q 3days/prn per [facility] note dated (03/30/18) next f/u ov there 04/13/18. Surgical History Cervical rib s/p excision 1974 Hx of colonoscopy with polypectomy incision and drainage (03/23/18) [facility] [place]-wound debridement of chronic ischial/groin wound after wart removal; 11/2016. S/P cataract extraction S/P ureteral stent placement (09/16/18) Suprapubic catheter and vaginal sling 2011 Family History Mother , CHF at age 87. 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[facility] What is your relationship status?: Panel score (0-1 are the most socially isolated patients): 1 Frequency: 3-4 times per week Seatbelt use: always Water heater temp set <120 deg: Yes Working smoke detector in home: Yes Fire extinguisher in home: Yes Carbon monox detector in home: Yes Firearms in home: Yes Do you feel safe at home: Yes Do you feel safe in your relationship?: Yes Exam Const General: no acute distress Orientation: alert [facility] Head: normal to inspection Ears: external ears normal General nose exam: external nose normal Mouth: moist mucous membranes Eyes General: appearance normal, both eyes and all related structures Neck Neck: normal visual inspection Resp Effort & Inspection: normal respiratory effort and able to speak in complete sentences Auscultation: clear to auscultation bilaterally Cardio Jugular venous pressure: no JVD Rate: regular rate GI Palpation: soft and nontender Skin General skin exam: no rashes or lesions noted Neuro General: patient alert and patient oriented x3 Extrem General: normal to inspection Psych Mental Status: mental status grossly normal Course Vital Signs Vital signs: Vital Signs Temperature 36.8 C 05/18/23 09:24 Pulse 80 12/17/22 09:24 Respiratory Rate 20 12/17/22 09:24 Blood Pressure 178/73 H 12/17/22 09:24 Pulse Oximetry 96 12/17/22 09:24 Temperature 36.8 C 12/17/22 09:24 Temperature Source Oral 12/17/22 09:24 Pulse 80 12/17/22 09:24 Respiratory Rate 20 12/17/22 09:31 Respiratory Effort Normal, Non-Labored 12/17/22 09:31 Respiratory Depth Normal 12/17/22 09:31 Respiratory Pattern Normal 12/17/22 09:31 Blood Pressure 178/73 H 12/17/22 09:24 Blood Pressure Position Sitting 12/17/22 09:24 Pulse Oximetry 96 12/17/22 09:24 Oxygen Delivery Method Room Air 12/17/22 09:24 Oxygen Flow Rate 0 12/17/22 09:24
[2022-12-17 10:24] LABS: Abs Immature Grans 0.04 10^3/uL (0.0-0.06); Absolute Basophil Count 0.03 10^3/uL (0.0-0.2); Absolute Eosinophil Count 0.15 10^3/uL (0.0-0.7); Absolute Lymphocyte Count 0.27 10^3/uL (1.2-3.4); Absolute Monocyte Count 0.57 10^3/uL (0.1-0.8); Absolute Neutrophil Count 8.56 10^3/uL (1.2-6.7); Basophils % 0.3; Eosinophils % 1.6; HCT 43.2 % (36.0-46.0); HGB 13.9 g/dL (11.2-15.7); Immature Grans % 0.4; Lymphocytes % 2.8; MCH 29.8 pg (27.0-33.0); MCHC 32.2 % (32.0-36.0); MCV 93 fL (80-95); MPV 10.6 fL (8.0-11.0); Monocytes % 5.9; Platelet Count 255 10^3/uL (130-400); RBC 4.66 10^6/uL (3.93-5.22); RDW 13.2 % (11.7-14.6); RDW-SD 45.1 fL; WBC 9.62 10^3/uL (4.4-10.8)
[2022-12-17] MEDS: Normal Saline 1,000 ML 1000 ML IV (10:26)
[2022-12-17 10:28] LABS: COVID-19 PCR Negative (Negative); Influenza A PCR Negative (Negative); Influenza B PCR Negative (Negative); RSV PCR Negative (Negative)
[2022-12-17 10:47] LABS: Source Nasopharynx
[2022-12-17 10:51] LABS: ALT 853 U/L (14-59); Albumin 3.3 g/dL (3.4-5.0); Alkaline Phosphatase 199 U/L (46-116); Anion Gap 6.9 mmol/L (3-11); BUN 11 mg/dL (7-18); Bilirubin, Total 0.7 mg/dL (0.2-1.0); CO2 32.1 mmol/L (21.0-32.0); CREATININE 0.9 mg/dL (0.55-1.02); Calcium 8.7 mg/dL (8.5-10.1); Chloride 102 mmol/L (98-107); Estimated GFR 63.83 (mL/min/1.73m2); Glucose 135 mg/dL (74-106); Magnesium 2.1 mg/dL (1.8-2.4); Potassium 3.4 mmol/L (3.5-5.1); Sodium 141 mmol/L (136-145); Total Protein 7.6 g/dL (6.4-8.2)
[2022-12-17 10:52] LABS: AST 841 U/L (15-37)
[2022-12-17 11:24] LABS: Bilirubin Negative (Negative); Blood Trace-intact (Negative); Clarity Sl Cloudy (Clear); Glucose Negative (Negative); Ketones Negative (Negative); Leukocyte Esterase Moderate (Negative); Nitrite Positive (Negative); Urobilinogen 0.2 mg/dL (Up to 0.2)
[2022-12-17 11:33] LABS: Bacteria Few HPF (Negative); C & S Indicated? Yes; Casts Negative LPF (Negative); Crystals Negative HPF (Negative); Epithelial Cells Few HPF (Negative); Mucus Trace (Negative); RBC 0-2 HPF (0-2)
--- NOTE | 2022-12-17 11:50 | DI.CT_ITS ---
Exam(s) CT ABDOMEN PELVIS W EXAM: CT ABDOMEN PELVIS W CLINICAL HISTORY: elevated lft's,general malaise, pain TECHNIQUE: Imaging Protocol: Axial computed tomography images with coronal and sagittal reformatted images were created and reviewed CONTRAST MATERIAL: Intravenous: Omnipaque 350 Contrast volume:100 mL Oral: No COMPARISON: CT CT ABDOMEN PELVIS WO from 06/10/2018 FINDINGS: ABDOMEN: Lung Bases: There is a small hiatal hernia. There is a small right pleural effusion. Liver: There are few tiny hypodensities in the liver. They are too small for further characterizatio n but likely reflect small cysts. No follow-up is recommended. No measurable mass. Portal, Superior Mesenteric, and Splenic Veins: Unremarkable. Gallbladder and Biliary Tract: There are gallstones present. There is gallbladder wall thickening. There is a small amount of pericholecystic fluid. No biliary ductal dilatation. Pancreas: Normal density, no abnormal calcifications or inflammatory process. Spleen: Normal. Adrenals: No masses seen. Kidneys: Normal size, contour and axis. No radiodense stones or obstructive uropathy. There is a 0.9 cm round hypodense lesion in the inferior pole of the left kidney. Abdominal Aorta: Abdominal portion non-dilated. Atherosclerosis. Bowel: There is diverticulosis of the colon but no evidence of acute diverticulitis. There is no collin dence of bowel obstruction or bowel wall thickening. No evidence of appendicitis. Peritoneal Cavity: No ascites, collection or mesenteric inflammatory response. No free air. Lymph Nodes: Within normal limits. Bones: Within normal limits for the patient's age. Soft Tissues: There is a small fat containing umbilical hernia. PELVIS: Bladder: There is a suprapubic catheter in place. There is diffuse thickening of the wall of the uri nary bladder which may be due to underdistention. Reproductive Organs: Status post hysterectomy. Lymph Nodes: Within normal limits. Bones: Within normal limits for the patient's age. IMPRESSION: 1. Cholelithiasis with gallbladder wall thickening and enhancement of pericholecystic fluid. The fin dings are suspicious for acute cholecystitis. There is no biliary ductal dilatation. Gallbladder ul trasound may be obtained for further evaluation. 2. 0.9 cm hypodense lesion in the inferior pole of the left kidney. It does not meet the criteria fo r simple cysts. Renal ultrasound may be obtained for further evaluation. 3. Diffuse thickening of the wall of the urinary bladder. This may be due to underdistention. Chron ic bladder outlet obstruction or cystitis should also be considered. 4. Findings were discussed with Dr. Hernandez at 12:21 p.m. on 12/17/2022. RADIATION DOSE DELIVERED: 1,052.04mGy.cm Total DLP DATA REPOSITORY: All CT scans at this facility are submitted to the National Radiology Data Registry (NRDR) Dose Index Registry (DIR) with the [employer] (A[employer]). RADIATION OPTIMIZATION: All CT scans at this facility use at least one of these dose optimization te chniques: automated exposure control; mA and/or kV adjustment per patient size (includes targeted exa ms where dose is matched to clinical indication); or iterative reconstruction.
[2022-12-17] MEDS: Omnipaque 350 MG/ML 100 ML BTL IJ (11:54)
[2022-12-17] MEDS: Normal Saline - Diluent 50 ML VIAL IJ (11:55)
[2022-12-17] MEDS: Normal Saline Flush 10 ML SYR IVP (11:56)
--- NOTE | 2022-12-17 13:12 | W.PM.HP.N ---
Date of service: 12/17/22 Time of Service: 13:12 Assessment and Plan Assessment and plan (1) Acute cholecystitis: Status: Acute Assessment and plan: The history and imaging seem consistent with acute calculus cholecystitis. Although she is not very tender, I do have some concerns that her MS is masking right upper quadrant pain. Lower LFTs are elevated, bilirubin is normal suggesting no obstruction of the common bile duct. I discussed treatment options with her, her , and her son. The emergency department is already started some Zosyn, and I do think she would tolerate laparoscopic cholecystectomy quite well. Given the obvious gallstones on the CAT scan, I think that is the most reasonable choice here. The specific risks of the operation, and she and her family provide informed consent. I will make arrangements to proceed with cholecystectomy as soon as possible History of Present Illness History of Present Illness Chief Complaint: She does not feel well Narrative: Eva is an 82-year-old woman with a past medical history that is most significant for multiple sclerosis. Yesterday afternoon she started to feel ill. She describes a general malaise, and a sense that she was not really herself. She had some loss of appetite. He tells me she felt like she did when she had urosepsis in the past. She was able to tolerate a little bit of dinner, but throughout the course of the night she became progressively confused. She describes a little bit of pain in her back. This morning, she had no appetite, and her reports that she really was not acting herself. So she came to the emergency department for evaluation. Liver function tests were found to be elevated, with a normal bilirubin. she underwent a CAT scan of the abdomen and pelvis that shows pericholecystic fluid and gallbladder wall thickening in the setting of cholelithiasis. Review of Systems Constitutional Constitutional: Reports difficulty sleeping, Denies fever(s), Reports malaise, Reports poor appetite and Reports weakness Eyes Eyes: Reports system reviewed and no additional complaints, except as documented ENT Ears, Nose, Mouth, and Throat: Reports system reviewed and no additional complaints, except as documented Cardiovascular Cardiovascular: Denies chest pain and Denies dyspnea Respiratory Respiratory: Denies chest congestion, Denies cough and Denies dyspnea Gastrointestinal Gastrointestinal: Denies abdominal pain, Reports nausea and Denies vomiting Musculoskeletal Musculoskeletal: Reports back pain and Reports myalgias Neurologic Neurologic: Reports system reviewed and no additional complaints, except as documented and Reports weakness Hematologic/Lymphatic Hematologic/Lymphatic: Denies easy bleeding and Denies easy bruising PFSH All Active Problems (Updated 12/17/22 @ 13:17 by Gianluca Duran MD) Acute cholecystitis (Acute) Osteopenia of spine (Acute) per DEXA (2014, 2008) .. Medicare needs the M85.88 (vs just the M85.80) Central sleep apnea (Acute) Mixed sleep apnea (Acute) Hypercapnia with mixed acid-base disorder (Acute) Neck muscle strain (Acute) Rt, possible SCM mm spasm, [ ] PT Claw hand of right upper extremity (Acute) Trigger finger, left middle finger (Acute) Trigger thumb, left thumb (Acute) Right-sided muscle weakness (Acute) Hx MS with R>L effected more ... Active daily, with chores, stretching, hobbies.. [ ] band/weight work? Metacarpophalangeal joint pain (Chronic) Joint space narrowing, subchondral sclerosis, periarticular spurring per XR (04/01/21) Hand pain (Acute) lft swelling, rt pinky contracted.. [ ] PT, Naproxen Injury of little finger (Acute) Pain of left middle finger (Acute) Leg pain, bilateral (Acute) Aches, cramps (joel horses, L>R), weakness ... presuming 2' MS, but appreciate re-evaluation. 03/2021 Spasticity (Acute) Leg edema (Chronic 09/2018) Hx LE edema, but exercise and elevation had managed most of the swelling. Recent worsening seems 2' lack of exercise (due to offloading of sacral/buttock wound) and serious nephrolith. Swelling may be compounded by kidney infection, bleed and ABx. Responding well to 40mg --> manage with lasix and monitor Cr/K for now. Trial tubi-bariatric program coordinator and ankle rolls as well.... 10/19/18, ik Significantly better after stopping gabapentin 11/2018. Osteopenia (Acute 10/11/14) left hip T score -1.5 Nonsustained paroxysmal supraventricular tachycardia (Acute) Nephrolithiasis (Acute) D/C from [facility], s/p renal Found on U/S, post UTI .. hospitalized 05/13/[address] Cancino. CT completed to reveal right stone burdern. Change in mental status (Acute) Neurogenic bladder (Chronic) due to multiple sclerosis; requires suprapubic catheter Note: [facility] sugggests staying at newly placed 18FR catheter. 10/05/18, ik Hypertension (Chronic) 09/12/2007, well-managed, 05/2018, ik Multiple sclerosis (Chronic) 08/01/[address] (Chronic) Sees UROL q 6-8 weeks. Medical History Ambulatory dysfunction Benign neoplasm of colon (11/10/11) H/O squamous cell carcinoma 10/21/21 Dr Toribio Shajg C&D of L forehead lesion Neuropathic pain (11/04/16) left leg, great toe to hip; gabapentin caused excessive edema Non-pressure chronic ulcer of buttock with fat layer exposed 04/27/18 Wound [facility]aling Ctr [facility] Last OV 11/16/18. RTC 7-10days Non-pressure chronic ulcer of right lower leg with fat layer exposed 04/27/18 [facility] Obesity (BMI 30.0-34.9) Right shoulder injury Pulled mm during transfer (?) Sepsis TIA (transient ischemic attack) (08/2018) CT (NEG) Tingling face, numb in left arm... Toxic metabolic encephalopathy Tubular adenoma 08/02/2005 Wart removal 2016. Ischial/groin I&D 03/23/18 after 2 wounds were found to communicate with each other. Packing was found in wounds. whicch is ? to be the reason for non-healing Wheelchair dependent Wound of right buttock (04/09/17) managed by wound service [facility], following punch biopsy for wart 11/30/16 Dr Toribio. veruca vulgaris 09/09/17 wound still managed by [facility]. 09/23/17 non healing right ischia wound. providing in home care 01/12/18 [place] [facility] [place] still managed there. has home health to do drsg changes q3 days and prn. next wound f/[place] ov is 02/07/2018 [place] [facility] [place]22[place]18-[facility]-new R groin wound that communicates w/original 11/2016 wound-sent to Plastics to schedule I&D 03/18/18 [facility] W[facility]aling [facility] - Continued right groin wound. Cont dressing. Scheduled for I&D Dr. Gutierrez 03/23/18. 03/23/18: [facility] OR for I and D. Has Home health. doing drsg changes Q 3days/prn [place] [facility] [place] dated (03/30/18) next f/u ov there 04/13/18. Surgical History Cervical rib s/p excision 1974 Hx of colonoscopy with polypectomy incision and drainage (03/23/18) [facility]-wound debridement of chronic ischial/groin wound after wart removal; 11/2016. S/P cataract extraction S/P ureteral stent placement (09/16/18) Suprapubic catheter and vaginal sling 2011 Family History Mother , CHF at age 87. 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[place] [place] What is your relationship status?: Panel score (0-1 are the most socially isolated patients): 1 Frequency: 3-4 times per week Seatbelt use: always Water heater temp set <120 deg: Yes Working smoke detector in home: Yes Fire extinguisher in home: Yes Carbon monox detector in home: Yes Firearms in home: Yes Do you feel safe at home: Yes Do you feel safe in your relationship?: Yes Meds Allergies and Home Medications Allergies Allergy/AdvReac Type Severity Reaction Status Date / Time lisinopril AdvReac Severe cough/wheez Verified 10/29/22 09:13 ing Iodine and Iodide Containing AdvReac Intermediate redness Verified 10/29/22 09:13 Produc pregabalin [From Lyrica] AdvReac whoosy Verified 10/29/22 09:13 reported 04/2017 iodine Allergy Uncoded 10/29/22 09:13 Home Medications Medication Instructions Recorded Confirmed Type ascorbic acid (vitamin C) 500 mg 500 mg PO BID 11/11/12 10/29/22 History tablet sefpskasvim-[id number]-fwm C-Mn 500 1 ea PO BID 11/28/13 10/29/22 History mg-400 mg capsule (Glucosamine 1) cyanocobalamin (vitamin B-12) 1,000 mg PO DAILY 05/11/18 10/29/22 History 1,000 mcg tablet (Vitamin B-12) docusate sodium 100 mg capsule 300 mg PO HS 05/11/18 10/29/22 History (Colace) multivitamin 1 tab PO DAILY 05/11/18 10/29/22 History calcium carbonate 600 mg-vitamin 1 tab PO BID 05/13/18 10/29/22 History D3 20 mcg (800 unit) chewable tablet (Caltrate 600 plus D) naproxen 500 mg tablet 500 mg PO BID PRN inflammation; 04/23/21 10/29/22 Rx hand pain #30 tabs oxybutynin chloride 15 mg 15 mg PO DAILY #90 tabs 01/16/22 10/29/22 Rx tablet,extended release 24 hr pravastatin 20 mg tablet 20 mg PO HS #90 tabs 04/05/22 10/29/22 Rx baclofen 20 mg tablet See Rx Instructions .Route 05/28/22 10/29/22 Rx .COMPLEX #405 tabs duloxetine 20 mg capsule,delayed 40 mg PO DAILY #180 caps 06/11/22 10/29/22 Rx release furosemide 20 mg tablet 40 mg PO DAILY #180 tabs 10/23/22 10/29/22 Rx Exam Const General: cooperative and comfortable Nutritional Appearance: overweight Orientation: alert and awake Resp Effort & Inspection: normal respiratory effort and no audible wheezes Auscultation: clear to auscultation bilaterally GI Inspection: normal to inspection and non-distended Palpation: soft and nontender Other: She has a suprapubic catheter Results Labs 12/17/22 10:20 12/17/22 10:20 Labs: Laboratory Results - last 24 hr 12/17/22 12/17/22 12/17/22 09:44 10:20 10:20 WBC 9.62 RBC 4.66 Hgb 13.9 Hct 43.2 MCV 93 MCH 29.8 MCHC 32.2 RDW 13.2 Plt Count 255 MPV 10.6 Immature Gran % 0.4 Neutrophils % 89.0 Lymphocytes % 2.8 Monocytes % 5.9 Eosinophils % 1.6 Basophils % 0.3 Nucleated RBC % 0.0 Absolute Neutrophils 8.56 H Absolute Lymphocytes 0.27 L Absolute Monocytes 0.57 Absolute Eosinophils 0.15 Absolute Basophils 0.03 Sodium 141 Potassium 3.4 L Chloride 102 Carbon Dioxide 32.1 H Anion Gap 6.9 BUN 11 Creatinine 0.9 Est GFR (CKD-EPI 2020) 63.83 Glucose 135 H Calcium 8.7 Magnesium 2.1 Total Bilirubin 0.7 AST 841 H ALT 853 H Alkaline Phosphatase 199 H Total Protein 7.6 Albumin 3.3 L Urine Color Urine Clarity Urine pH Ur Specific [place] Urine Protein Urine Ketones Urine Blood Urine Nitrite Urine Bilirubin Urine Urobilinogen Ur Leukocyte Esterase Urine RBC Urine WBC Ur Epithelial Cells Urine Crystals Urine Bacteria Urine Casts Urine Mucus Ur Culture Indicated? Urine Glucose COVID-19 Source Nasopharynx SARS-CoV-2 (PCR) Negative Influenza Type A (PCR) Negative Influenza Type B (PCR) Negative RSV (PCR) Negative 12/17/22 11:15 WBC RBC Hgb Hct MCV MCH MCHC RDW Plt Count MPV Immature Gran % Neutrophils % Lymphocytes % Monocytes % Eosinophils % Basophils % Nucleated RBC % Absolute Neutrophils Absolute Lymphocytes Absolute Monocytes Absolute Eosinophils Absolute Basophils Sodium Potassium Chloride Carbon Dioxide Anion Gap BUN Creatinine Est GFR (CKD-EPI 2020) Glucose Calcium Magnesium Total Bilirubin AST ALT Alkaline Phosphatase Total Protein Albumin Urine Color Yellow Urine Clarity Sl Cloudy Urine pH 7.0 Ur Specific [place] 1.020 Urine Protein Negative Urine Ketones Negative Urine Blood Trace-intact H Urine Nitrite Positive H Urine Bilirubin Negative Urine Urobilinogen 0.2 Ur Leukocyte Esterase Moderate H Urine RBC 0-2 Urine WBC 10-20 H Ur Epithelial Cells Few Urine Crystals Negative Urine Bacteria Few Urine Casts Negative Urine Mucus Trace Ur Culture Indicated? Yes Urine Glucose Negative COVID-19 Source SARS-CoV-2 (PCR) Influenza Type A (PCR) Influenza Type B (PCR) RSV (PCR) Last Vital Signs Temp 98.2 F 12/17/22 09:24 Pulse 80 12/17/22 09:24 Resp 20 12/17/22 09:31 BP 178/73 H 12/17/22 09:24 Pulse Ox 96 12/17/22 09:24 Time Spent Time spent with Patient: 40-54 minutes Time was spent: preparing to see the patient(eg.review tests), obtaining and/or reviewing separately otained hiistory, referring, communicating with other health daycare worker, indepentently interpreting results, counseling the patient and care coordination
--- NOTE | 2022-12-17 13:47 | W.ANESPRE ---
General Info Date of Service Date Performed: 12/17/22 Height: 5 ft 3 in Weight: 80.7 kg Body Mass Index (BMI): 31.5 Surgical Procedure: Operation Date: 12/17/22 13:40 Proposed Procedure Side Surgeon p Cholecystectomy Laparoscopic Gianluca Duran MD Meds Allergies and Home Medications Allergies Allergy/AdvReac Type Severity Reaction Status Date / Time lisinopril AdvReac Severe cough/wheez Verified 10/29/22 09:13 ing Iodine and Iodide Containing AdvReac Intermediate redness Verified 10/29/22 09:13 Produc pregabalin [From Lyrica] AdvReac whoosy Verified 10/29/22 09:13 reported 04/2017 iodine Allergy Uncoded 10/29/22 09:13 Home Medication Medication Instructions Recorded ascorbic acid (vitamin C) 500 mg 500 mg PO BID 11/11/12 tablet asodhgbluwq-atlpgvzsn-qnw C-Mn 500 1 ea PO BID 11/28/13 mg-400 mg capsule (Glucosamine 1) cyanocobalamin (vitamin B-12) 1,000 mg PO DAILY 05/11/18 1,000 mcg tablet (Vitamin B-12) docusate sodium 100 mg capsule 300 mg PO HS 05/11/18 (Colace) multivitamin 1 tab PO DAILY 05/11/18 calcium carbonate 600 mg-vitamin 1 tab PO BID 05/13/18 D3 20 mcg (800 unit) chewable tablet (Caltrate 600 plus D) naproxen 500 mg tablet 500 mg PO BID PRN inflammation; 04/23/21 hand pain #30 tabs oxybutynin chloride 15 mg 15 mg PO DAILY #90 tabs 01/16/22 tablet,extended release 24 hr pravastatin 20 mg tablet 20 mg PO HS #90 tabs 04/05/22 baclofen 20 mg tablet See Rx Instructions .Route 05/28/22 .COMPLEX #405 tabs duloxetine 20 mg capsule,delayed 40 mg PO DAILY #180 caps 06/11/22 release furosemide 20 mg tablet 40 mg PO DAILY #180 tabs 10/23/22 Current Visit Medications: Current Medications Generic Name Dose Route Start Last Admin Trade Name Freq PRN Reason Stop Dose Admin Sodium Chloride 500 mls @ 0 mls/hr 12/17/22 13:08 Saline 500ml Bag IV PRN PRN As Directed Ringer's Solution 1,000 mls @ 75 mls/hr 12/17/22 13:15 IV INFUSION [place] IV Miscellaneous Supplies 1 each 12/17/22 09:45 Iv Access IV DIRECTED [place] IV Miscellaneous Supplies 1 each 12/17/22 13:15 Iv Access IV DIRECTED [place] Iohexol 100 ml 12/17/22 12:00 12/17/22 11:54 Omnipaque 350 Mg/Ml 100 Ml Btl IJ 01/16/23 23:59 100 ml DIRECTED [place] Administration Sodium Chloride 0 ml 12/17/22 09:39 12/17/22 11:56 Normal Saline Flush 10 Ml Syr IVP 10 ml PRN PRN Administration Sodium Chloride 50 ml 12/17/22 12:00 12/17/22 11:55 Normal Saline - Diluent 50 Ml Vial IJ 50 ml .FOR DI USE [place] Administration Sodium Chloride 0 ml 12/17/22 13:08 Normal Saline Flush 10 Ml Syr IVP PRN PRN PFSH Active Problems Active Problems: Problem Status Onset Code Osteopenia of spine M85.88 Central sleep apnea G47.31 Mixed sleep apnea G47.39 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 Neck muscle strain S16.1XXA Claw hand of right upper extremity M21.511 Trigger finger, left middle finger M65.332 Trigger thumb, left thumb M65.312 Right-sided muscle weakness M62.81 Metacarpophalangeal joint pain M25.549 Hand pain M79.643 Injury of little finger S69.90XA Pain of left middle finger M79.645 Leg pain, bilateral M79.604, M79.605 Spasticity R25.2 Leg edema 09/2018 R60.0 Osteopenia 10/11/14 M85.80 Nonsustained paroxysmal supraventricular tachycardia I47.1 Nephrolithiasis N20.0 Change in mental status R41.82 Neurogenic bladder N31.9 Hypertension I10 Multiple sclerosis G35 Urinary catheter in place Z92.89 Medical History Medical History Ambulatory dysfunction Benign neoplasm of colon (11/10/11) H/O squamous cell carcinoma 10/21/21 Dr Catarino Menjivar C&D of L forehead lesion Neuropathic pain (11/04/16) left leg, great toe to hip; gabapentin caused excessive edema Non-pressure chronic ulcer of buttock with fat layer exposed 04/27/18 Wound Healing Ctr [facility] [place] Last OV 11/16/18. RTC 7-10days Non-pressure chronic ulcer of right lower leg with fat layer exposed 04/27/18 W[facility]tr [facility] Obesity (BMI 30.0-34.9) Right shoulder injury Pulled mm during transfer (?) Sepsis TIA (transient ischemic attack) (08/2018) CT (NEG) Tingling face, numb in left arm... Toxic metabolic encephalopathy Tubular adenoma 08/02/2005 Wart removal 2016. Ischial/groin I&D 03/23/18 after 2 wounds were found to communicate with each other. Packing was found in wounds. whicch is ? to be the reason for non-healing Wheelchair dependent Wound of right buttock (04/09/17) managed by wound service [facility], following punch biopsy for wart 11/30/16 Dr Toribio. 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 09/23/17 non healing right ischia wound. HH providing in home care 01/12/18 ov at [facility] [place] wound healing center. still managed there. has home health to do drsg changes q3 days and prn. next wound f/u ov is 02/07/2018 at [facility] [place]. 02/22/18-[facility]-new R groin wound that communicates w/original 11/2016 wound-sent to Plastics to schedule I&D 03/18/18 [facility] W[facility]aling [facility] - Continued right groin wound. Cont dressing. Scheduled for I&D Dr. Gutierrez 03/23/18. 03/23/18: [facility] OR for I and D. Has Home health. doing drsg changes Q 3days/prn per [facility] [place] note dated (03/30/18) next f/u ov there 04/13/18. Surgical History Surgical History Cervical rib s/p excision 1973 Hx of colonoscopy with polypectomy incision and drainage (03/23/18) [facility]-wound debridement of chronic ischial/groin wound after wart removal; 11/2016. S/P cataract extraction S/P ureteral stent placement (09/16/18) Suprapubic catheter and vaginal sling 2011 Tobacco Smoking/Tobacco Use Status: Never Passive smoking exposure: No Alcohol Alcohol Intake: never Substance Use Substance use: Never Substance use type: does not use Counseling provided: none Vital Signs and Lab Results Vital Signs Most Recent Vital Signs in EMR: Most Recent Vital Signs Temp Pulse Resp BP Pulse Ox 36.8 C 80 20 178/73 H 96 12/17/22 09:24 12/17/22 09:24 12/17/22 09:31 12/17/22 09:24 12/17/22 09:24 Point of Care Results Point of Care Results: Finger Stick Blood Glucose 162 12/17/22 09:29 Lab Results 12/17/22 10:20 12/17/22 10:20 Blood Type / Crossmatch: No Data to Display Complete Blood Count: White Blood Count 9.62 10^3/uL (4.4-10.8) 12/17/22 10:20 Red Blood Count 4.66 10^6/uL (3.93-5.22) 12/17/22 10:20 Hemoglobin 13.9 g/dL (11.2-15.7) 12/17/22 10:20 Hematocrit 43.2 % (36.0-46.0) 12/17/22 10:20 Platelet Count 255 10^3/uL (130-400) 12/17/22 10:20 Complete Metabolic Panel: Sodium 141 mmol/L (136-145) 12/17/22 10:20 Potassium 3.4 mmol/L (3.5-5.1) L 12/17/22 10:20 Chloride 102 mmol/L (98-107) 12/17/22 10:20 Carbon Dioxide 32.1 mmol/L (21.0-32.0) H 12/17/22 10:20 BUN 11 mg/dL (7-18) 12/17/22 10:20 Creatinine 0.9 mg/dL (0.55-1.02) 12/17/22 10:20 Est GFR (CKD-EPI 2020) 63.83 (mL/min/1.73m2) 12/17/22 10:20 Magnesium 2.1 mg/dL (1.8-2.4) 12/17/22 10:20 Calcium 8.7 mg/dL (8.5-10.1) 12/17/22 10:20 Albumin 3.3 g/dL (3.4-5.0) L 12/17/22 10:20 Glucose 135 mg/dL (74-106) H 12/17/22 10:20 Liver Function Panel: Alanine Aminotransferase (ALT/SGPT) 853 U/L (14-59) H 12/17/22 10:20 Aspartate Amino Transf (AST/SGOT) 841 U/L (15-37) H 12/17/22 10:20 Coagulation Panel: No Data to Display Cardiac Panel: No Data to Display Arterial Blood Gas: No Data to Display Venous Blood Gas: No Data to Display Pancreas Panel: No Data to Display Thyroid Panel: No Data to Display Infectious Disease: Coronavirus (COVID-19)(PCR) Negative (Negative) 12/17/22 09:44 Coronavirus 2019 Source Nasopharynx 12/17/22 09:44 Influenza Virus Type A (PCR) Negative (Negative) 12/17/22 09:44 Influenza Virus Type B (PCR) Negative (Negative) 12/17/22 09:44 Respiratory Syncytial Virus (PCR) Negative (Negative) 12/17/22 09:44 Blood Cultures: No Data to Display Toxicology Panel: No Data to Display Anesthesia Assessment and Plan Anesthesia History Personal History: No History of Anesthesia Complications Family History: No Family History of Anesthesia Complications Exercise Tolerance Exercise Tolerance: Metabolic Equivalents<4 Pertinent Negatives Pertinent Negatives: No Symptoms of GERD, No Major Cardiovascular Symptoms or Complaints and No Major Pulmonary Symptoms or Complaints Cardiac & Pulmonary Exam Cardiac Exam: Normal S1/S2 Heart Sounds Pulmonary Exam: Clear Bilateral Breath Sounds Implantable Cardiac Device Does patient have a Pacemaker or an ICD?: No Airway Exam Known Difficult Airway: No Mallampati Class: 2 Mouth Opening: Normal (> 3cm) Thyromental Distance: Greater than 3 cm Neck Range of Motion: Full ROM Neck Circumference: Normal Teeth Condition: Removable Dentures/Plates Upper and Removable Dentures/Plates Lower ASA Classification ASA Score: ASA 3 Emergency Case?: No NPO Status NPO Status: NPO Clears >2 hours, Solids >8 hours Anesthesia Plan Resuscitation Status: Full Code Anesthesia Technique: General Anesthesia Airway Planned: Natural Airway Monitors Used: Standard Monitors Preoperative Comments:: History of MS. Right sided weakness.
[2022-12-17] MEDS: Bupivacaine 0.25% Pres-Free 30 ML VIAL (14:16)
[2022-12-17] MEDS: Lactated Ringers 1,000 ML 75 ML IV (14:16)
[2022-12-17] MEDS: PIPERACILLIN/TAZO 4.5 GM in Normal Saline 100 ML IVPB (15:17)
--- NOTE | 2022-12-17 15:46 | GB_PTH ---
PATIENT: Eva Bonilla LOC: U#:[id number] AGE/SX: 82/F ROOM: 211 RE12/17/[address]: Gianluca Duran MD : [id number] BED: A DIS: 12/18/2022 SPEC #: [id number] RECD: 12/18/22 11:38 STATUS: LINDSAY REQ #: [id number] LUCIANA: 12/17/22 15:[address]: Gianluca Duran DEPT: Surgical Specimen RECD BY: Chloe Montana ENTERED: 12/18/22 11:38 SP TYPE: GB OTHR DR: Opal Dejesus DO Tissues: 1 - GALLBLADDER Procedures: GROSS AND MICRO LEVEL 3 Comments: [id number]
--- NOTE | 2022-12-17 16:50 | W.ANESPOSTOP ---
Postoperative Evaluation Date, Time and Location Date Performed: 12/17/22 Time Performed: 16:50 Patient Location: PACU Vital Signs Most Recent Imported Vital Signs: Most Recent Vital Signs Temp Pulse Resp BP Pulse Ox 36.7 C 65 19 176/60 H 97 12/17/22 16:48 12/17/22 16:48 12/17/22 16:48 12/17/22 16:48 12/17/22 16:48 Assessment Mental Status: Arousable with meaningful communication Airway and Respiratory Function: Patent airway with normal (patient baseline) respiratory exam Cardiovascular Function: Hemodynamically Stable Hydration Status: Adequately Hydrated Nausea & Vomiting: No Nausea or Vomiting Pain: Pt. Denies Any Pain Peripheral Nerve Block: Patient did not receive a nerve block
[2022-12-17] MEDS: Heparin 5,000 UNITS/ML VIAL 5000 UNITS SC (18:38)
[2022-12-17] MEDS: Baclofen 10 MG TAB PO (19:48)
[2022-12-17] MEDS: Calcium 600mg/Vit D 200U TAB 1 TAB PO (19:48)
[2022-12-17] MEDS: Glucosamine/Chondroitin CAP 1 CAP PO (19:48)
[2022-12-17] MEDS: Ascorbic Acid 500 MG TAB PO (19:48)
--- NOTE | 2022-12-17 19:52 | W.PM.OP ---
Date of service: 12/17/22 Time of Service: 19:52 Operative Note Operative Note DATE OF PROCEDURE: 12/17/22 PRE-OP DIAGNOSIS: Acute calculus cholecystitis POST-OP DIAGNOSIS: same PROCEDURE: Laparoscopic cholecystectomy SURGEON: Gianluca Duran INSTRUMENT LENS GENERATOR: Wild Garcia ANESTHESIA TYPE: General LMA/ETT Refer to Anesthesia Record ESTIMATED BLOOD LOSS: 50 COMPLICATIONS: None Patient was transported to: PACU Patient's condition: stable Indications: Eva is an 82-year-old woman with general malaise. He had abnormal LFTs, and a CAT scan that demonstrated gallbladder wall thickening and pericholecystic fluid consistent with acute cholecystitis. Findings: Acute cholecystitis Procedure Description: After satisfactory induction of general anesthesia, I prepped and draped the abdomen in usual fashion. Next, I began with a periumbilical incision. I dissected down to the fascia and elevated it with Matt clamps. I incised it sharply. Next, I passed a 12 mm operating port in the umbilical site. I secured it to the fascia with 0 Vicryl stitches. I then insufflated the peritoneal cavity. Next I inserted a 5 mm 30 degree scope and examined the underlying viscera. There was no evidence of injury created upon entry. I then placed the patient in some reverse Trendelenburg and left side down positioning. Then, with the assistance of the laparoscope, I used local anesthetic to anesthetize the midepigastric and 2 right upper quadrant port sites. Under the vision of the laparoscope, I passed 3 more 5 mm ports. I then grasped the gallbladder fundus and elevated cephalad. I began by dissecting the gallbladder infundibulum. There were challenging adhesions here, and great care was taken to mobilize it in a safe fashion. I worked in a lateral to medial fashion. Using tedious dissection, I skeletonized the cystic duct and cystic artery, with a satisfactory critical view of safety, I doubly clipped and divided them. I then used electrocautery to dissect the gallbladder off the gallbladder fossa. There was some bleeding from the gallbladder fossa that was easily controlled with cautery. I passed the gallbladder into an Endo Catch bag and removed it by way of the umbilical site. I examined the surgical field. It was hemostatic. I then removed the 5 mm ports under the vision of the laparoscope. Finally, I removed the umbilical port site and closed the fascia with Vicryl stitches. Sites were irrigated, and the skin was closed with subcuticular stitches. Bandages were applied, patient was awakened from anesthesia, and transferred to the recovery unit.
--- NOTE | 2022-12-17 20:50 | TELEP.MEDR_ITS ---
Date of service: 12/17/22 Time of Service: 20:50 Telepharmacy Home Med Rec Allergies Allergies: lisinopril Adverse Reaction (Severe, Verified 10/29/22 09:13) cough/wheezing Iodine and Iodide Containing Produc Adverse Reaction (Intermediate, Verified 10/29/22 09:13) redness pregabalin [From Lyrica] Adverse Reaction (Verified 10/29/22 09:13) whoosy reported 04/2017 iodine Allergy (Uncoded 10/29/22 09:13) Interview Person Interviewed: * son and bhdluuvb-co-mid Quality Quality of Interview/Accuracy of Medication List: Excellent Sources Sources used to compile medication list: [employer] Medication List and Patient List Changes made to Home Medication List: ADDITIONS: * magnesium 250mg PO BID * Aspirin 325mg Po daily DELETIONS: * none CHANGES: * Furosemide 20mg Po BID (changed from 40mg PO daily) * Multivitamin 1 tablet PO BID (changed from 1 tablet PO daily) * DOcusate 500mg PO HS (changed from 300mg PO HS) * Duloxetine 20mg PO BID (Changed from Duloxetine 40mg PO daily) Additional Notes Additional Notes: * none Recommended Changes Recommended Changes(reason for recommendation): * none Attestation: The home medication list is now updated to the best of my knowledge and is ready to be reconciled by the provider. Please contact the [facility] Med[facility] Pharmacist at for any questions.
--- NOTE | 2022-12-17 20:50 | TELEP.MEDREC ---
Date of service: 12/17/22 Time of Service: 20:50 Telepharmacy Home Med Rec Allergies Allergies: lisinopril Adverse Reaction (Severe, Verified 10/29/22 09:13) cough/wheezing Iodine and Iodide Containing Produc Adverse Reaction (Intermediate, Verified 10/29/22 09:13) redness pregabalin [From Lyrica] Adverse Reaction (Verified 10/29/22 09:13) whoosy reported 04/2017 iodine Allergy (Uncoded 10/29/22 09:13) Interview Person Interviewed: son and xpzmszpv-tw-eaz Quality Quality of Interview/Accuracy of Medication List: Excellent Sources Sources used to compile medication list: [employer] Medication List and Patient List Changes made to Home Medication List: ADDITIONS: magnesium 250mg PO BID Aspirin 325mg Po daily DELETIONS: none CHANGES: Furosemide 20mg Po BID (changed from 40mg PO daily) Multivitamin 1 tablet PO BID (changed from 1 tablet PO daily) DOcusate 500mg PO HS (changed from 300mg PO HS) Duloxetine 20mg PO BID (Changed from Duloxetine 40mg PO daily) Additional Notes Additional Notes: none Recommended Changes Recommended Changes(reason for recommendation): none Attestation: The home medication list is now updated to the best of my knowledge and is ready to be reconciled by the provider. Please contact the [facility] Medication Reconciliation Pharmacist at for any questions.
[2022-12-17] MEDS: Pravastatin 20 MG TAB PO (22:20)
[2022-12-17] MEDS: Docusate Sodium 100 MG CAP 300 MG PO (22:21)
[2022-12-18] MEDS: Heparin 5,000 UNITS/ML VIAL 5000 UNITS SC ×2 (02:27→09:56)
[2022-12-18 06:44] LABS: HCT 37.5 % (36.0-46.0); HGB 12.3 g/dL (11.2-15.7); MCH 30.3 pg (27.0-33.0); MCHC 32.8 % (32.0-36.0); MCV 92 fL (80-95); MPV 11.2 fL (8.0-11.0); Platelet Count 221 10^3/uL (130-400); RBC 4.06 10^6/uL (3.93-5.22); RDW 13.5 % (11.7-14.6); RDW-SD 46.4 fL; WBC 7.66 10^3/uL (4.4-10.8)
[2022-12-18 07:06] LABS: ALT 586 U/L (14-59); AST 348 U/L (15-37); Albumin 2.6 g/dL (3.4-5.0); Alkaline Phosphatase 166 U/L (46-116); Anion Gap 7.2 mmol/L (3-11); BUN 9 mg/dL (7-18); Bilirubin, Total 0.5 mg/dL (0.2-1.0); CO2 30.8 mmol/L (21.0-32.0); CREATININE 0.7 mg/dL (0.55-1.02); Calcium 8.4 mg/dL (8.5-10.1); Chloride 103 mmol/L (98-107); Glucose 137 mg/dL (74-106); Potassium 3.3 mmol/L (3.5-5.1); Sodium 141 mmol/L (136-145); Total Protein 6.3 g/dL (6.4-8.2)
--- NOTE | 2022-12-18 07:08 | DSE_ITS ---
Date of service: 12/18/22 Time of Service: 12:16 DS: Diagnosis Discharge Diagnosis (1) Acute cholecystitis: Status: Acute Asessment and Plan: Follow-up in the office on December 31 at 11:30 AM Discharge Plan Disposition Patient Disposition: Home W/Home Health Services Condition: Good Discharge Details Reason For Visit: Acute Cholecystitis Admit Date/Time: 12/17/22 13:08 Admit Provider: Gianluca Duran Attending Provider: Gianluca Duran Primary Care Provider: Opal Dejesus [facility] Course Hospital Course: Eva is an 82-year-old woman who came to the emergency department feeling ill. She had elevation of her liver function test, and underwent a CAT scan that suggested acute cholecystitis. She went to the operating room and had a laparoscopic cholecystectomy. She felt well afterwards, was tolerating food. Home Meds and New Rx's Prescriptions: New tramadol 50 mg tablet 50 mg PO Q8H PRN (Reason: pain) Qty: 9 0RF Rx Instructions: Take 1 tablet by mouth up to every 8 hours if needed for severe pain. This medication can be sedating, please use it with care. Continued ascorbic acid (vitamin C) 500 MG tablet 500 mg PO BID rmdhsinzyuh-sbjaxmxyu-sue C-Mn [Glucosamine 1500 Complex] 1 EACH capsule 1 ea PO BID oxybutynin chloride 15 mg tablet extended release 24hr 15 mg PO DAILY Qty: 90 3RF pravastatin 20 mg tablet 20 mg PO HS Qty: 90 4RF multivitamin Tablet 1 tab PO BID cyanocobalamin (vitamin B-12) [Vitamin B-12] 1,000 mcg Tablet 1,000 mg PO DAILY docusate sodium [Colace] 100 mg Capsule 500 mg PO HS Caltrate 600 plus D 600 mg (1,500 mg)-800 unit Tablet,Chewable 1 tab PO BID furosemide 20 mg Tablet 20 mg PO BID duloxetine 20 mg Capsule,Delayed Release(Dr/Ec) 20 mg PO BID baclofen 20 mg tablet 30 mg PO TID aspirin 325 mg Tablet 325 mg PO DAILY magnesium 250 mg Tablet 250 mg PO BID Discharge Instructions Instructions: Laparoscopic Cholecystectomy (GEN) Additional Instructions: 1. Resume all of your medications. 2. You can use heating pads and ice packs to help with the incisional discomfort 3. Okay to use tylenol and ibuprofen over the counter as needed. Use tramadol if needed for severe pain. 4. Leave bandage in place for 24 hours, then remove. 5. Shower with warm soapy water. Pat dry. Use a bandaid if needed to protect your clothing. 6. No soaking or tub baths until I see you in the office. 7. No heavy lifting until I see you in the office. 8. Call the office (or go directly to the emergency room after hours) if you notice any of the following: Develop chills (warm to touch), or if you have a thermometer and your temperature is above 101 Difficulty breathing or difficultly swallowing Persistent vomiting Any bleeding ? exceeding one tablespoon 6. Call your physician if the site where your intravenous was started becomes red, swollen, painful, and warm to touch. Referrals: Gianluca Duran MD [ [facility] STAFF PHYSICIAN] - (December 31 at 11:30 AM (you will actually see my partner, Dr. Buckley)) Activity:: No heavy lifting Equipment/Supplies:: No Equipment Needed Diet:: As Tolerated DS: Summary Time Spent with Patient providing and/or coordinating discharge services: Less than 30 minutes Status at Discharge Functional status at discharge: wheelchair bound Overall status at discharge: patient is progressing back to baseline Mental Status: mental status grossly normal Speech and Movement: speech and movement normal Mood: congruent mood Affect: normal affect Exam GI Other: Abdomen is soft and nondistended. Bandages are clean and dry. Psych Mental Status: mental status grossly normal Speech and Movement: speech and movement normal Mood: congruent mood Affect: normal affect DS: Data Vitals/I&O Vitals and I&O: Vital Signs Temperature 99.5 F 12/17/22 22:59 Temperature Source Tympanic 12/17/22 22:59 Pulse 77 12/17/22 22:59 Pulse Rhythm Regular 12/17/22 23:17 Respiratory Rate 16 12/17/22 22:59 Respiratory Effort Normal 12/17/22 23:17 Respiratory Depth Normal 12/17/22 23:17 Respiratory Pattern Normal 12/17/22 23:17 Blood Pressure 147/80 H 12/17/22 22:59 Blood Pressure Position Sitting 12/17/22 09:24 Pulse Oximetry 93 12/17/22 22:59 Respiratory End-tidal CO2 42 12/17/22 17:02 Oxygen Delivery Method Room Air 12/17/22 22:59 Oxygen Flow Rate 0 12/17/22 22:59 Pain Level 1 12/17/22 22:59 Comment Charge nurse, Wild made aware of elevated BP 12/17/22 17:30 Intake & Output 12/17/22 12/17/22 12/18/22 11:59 23:59 11:59 Intake Total 925 / 925 1425 / 1425 Output Total 975 / 975 200 / 200 Balance -50 / -50 1225 / 1225 Weight 177 lb 14.609 oz 183 lb 11.2 oz Intake: IV 675 / 675 1425 / 1425 Oral 250 / 250 Output: Urine 975 / 975 200 / 200 Other: Urine Color Yellow Yellow Urine Appearance Clear Clear Emesis Description None Data Completed and Pending Labs on day of discharge: Labs from last 24 hours 12/18/22 12/18/22 12/17/22 06:20 06:20 11:15 WBC 7.66 RBC 4.06 Hgb 12.3 Hct 37.5 MCV 92 MCH 30.3 MCHC 32.8 RDW 13.5 Plt Count 221 MPV 11.2 H Immature Gran % Neutrophils % Lymphocytes % Monocytes % Eosinophils % Basophils % Nucleated RBC % Absolute Neutrophils Absolute Lymphocytes Absolute Monocytes Absolute Eosinophils Absolute Basophils Sodium 141 Potassium 3.3 L Chloride 103 Carbon Dioxide 30.8 Anion Gap 7.2 BUN 9 Creatinine 0.7 Est GFR (CKD-EPI 2020) 86.30 Glucose 137 H Calcium 8.4 L Magnesium Total Bilirubin 0.5 AST 348 H ALT 586 H Alkaline Phosphatase 166 H Total Protein 6.3 L Albumin 2.6 L Urine Color Yellow Urine Clarity Sl Cloudy Urine pH 7.0 Ur Specific [place] 1.020 Urine Protein Negative Urine Ketones Negative Urine Blood Trace-intact H Urine Nitrite Positive H Urine Bilirubin Negative Urine Urobilinogen 0.2 Ur Leukocyte Esterase Moderate H Urine RBC 0-2 Urine WBC 10-20 H Ur Epithelial Cells Few Urine Crystals Negative Urine Bacteria Few Urine Casts Negative Urine Mucus Trace Ur Culture Indicated? Yes Urine Glucose Negative COVID-19 Source SARS-CoV-2 (PCR) Influenza Type A (PCR) Influenza Type B (PCR) RSV (PCR) 12/17/22 12/17/22 12/17/22 10:20 10:20 09:44 WBC 9.62 RBC 4.66 Hgb 13.9 Hct 43.2 MCV 93 MCH 29.8 MCHC 32.2 RDW 13.2 Plt Count 255 MPV 10.6 Immature Gran % 0.4 Neutrophils % 89.0 Lymphocytes % 2.8 Monocytes % 5.9 Eosinophils % 1.6 Basophils % 0.3 Nucleated RBC % 0.0 Absolute Neutrophils 8.56 H Absolute Lymphocytes 0.27 L Absolute Monocytes 0.57 Absolute Eosinophils 0.15 Absolute Basophils 0.03 Sodium 141 Potassium 3.4 L Chloride 102 Carbon Dioxide 32.1 H Anion Gap 6.9 BUN 11 Creatinine 0.9 Est GFR (CKD-EPI 2020) 63.83 Glucose 135 H Calcium 8.7 Magnesium 2.1 Total Bilirubin 0.7 AST 841 H ALT 853 H Alkaline Phosphatase 199 H Total Protein 7.6 Albumin 3.3 L Urine Color Urine Clarity Urine pH Ur Specific [place] Urine Protein Urine Ketones Urine Blood Urine Nitrite Urine Bilirubin Urine Urobilinogen Ur Leukocyte Esterase Urine RBC Urine WBC Ur Epithelial Cells Urine Crystals Urine Bacteria Urine Casts Urine Mucus Ur Culture Indicated? Urine Glucose COVID-19 Source Nasopharynx SARS-CoV-2 (PCR) Negative Influenza Type A (PCR) Negative Influenza Type B (PCR) Negative RSV (PCR) Negative 12/17/22 11:15 Urine - Reflex from Ua Urine Culture - Pending Preliminary micro results at discharge 12/17/22 11:15 Urine Culture - Pending Urine - Reflex from [facility] All Active Problems Acute cholecystitis (Acute) Acute cholecystitis (Acute) Osteopenia of spine (Acute) per DEXA (2014, 2008) .. Medicare needs the M85.88 (vs just the M85.80) Central sleep apnea (Acute) Mixed sleep apnea (Acute) Hypercapnia with mixed acid-base disorder (Acute) Neck muscle strain (Acute) Rt, possible SCM mm spasm, [ ] PT Claw hand of right upper extremity (Acute) Trigger finger, left middle finger (Acute) Trigger thumb, left thumb (Acute) Right-sided muscle weakness (Acute) Hx MS with R>L effected more ... Active daily, with chores, stretching, hobbies.. [ ] band/weight work? Metacarpophalangeal joint pain (Chronic) Joint space narrowing, subchondral sclerosis, periarticular spurring per XR (04/01/21) Hand pain (Acute) lft swelling, rt pinky contracted.. [ ] PT, Naproxen Injury of little finger (Acute) Pain of left middle finger (Acute) Leg pain, bilateral (Acute) Aches, cramps (joel horses, L>R), weakness ... presuming 2' MS, but appreciate re-evaluation. 03/2021 Spasticity (Acute) Leg edema (Chronic 09/2018) Hx LE edema, but exercise and elevation had managed most of the swelling. Recent worsening seems 2' lack of exercise (due to offloading of sacral/buttock wound) and serious nephrolith. Swelling may be compounded by kidney infection, bleed and ABx. Responding well to 40mg --> manage with lasix and monitor Cr/K for now. Trial tubi-merchant tailor and ankle rolls as well.... 10/19/18, ik Significantly better after stopping gabapentin 11/2018. Osteopenia (Acute 10/11/14) left hip T score -1.5 Nonsustained paroxysmal supraventricular tachycardia (Acute) Nephrolithiasis (Acute) [place] [facility] [place] s/p renal Found on U/S, post UTI .. hospitalized 05/13/[address] .. [address] Cancino. CT completed to reveal right stone burdern. Change in mental status (Acute) Neurogenic bladder (Chronic) due to multiple sclerosis; requires suprapubic catheter Note: [facility] [place] sugggests staying at newly placed 18FR catheter. 10/05/18, ik Hypertension (Chronic) 09/12/2007, well-managed, 05/2018, ik Multiple sclerosis (Chronic) 08/01/[address] (Chronic) Sees UROL q 6-8 weeks. Medical History Ambulatory dysfunction Benign neoplasm of colon (11/10/11) H/O squamous cell carcinoma 10/21/21 Dr Catarino Menjivar C&D of L forehead lesion Neuropathic pain (11/04/16) left leg, great toe to hip; gabapentin caused excessive edema Non-pressure chronic ulcer of buttock with fat layer exposed 04/27/18 [facility] [place] Last OV 11/16/18. RTC 7-10days Non-pressure chronic ulcer of right lower leg with fat layer exposed 04/27/18 [facility] [place] Obesity (BMI 30.0-34.9) Right shoulder injury Pulled mm during transfer (?) Sepsis TIA (transient ischemic attack) (08/2018) CT (NEG) Tingling face, numb in left arm... Toxic metabolic encephalopathy Tubular adenoma 08/02/2005 Wart removal 2016. Ischial/groin I&D 03/23/18 after 2 wounds were found to communicate with each other. Packing was found in wounds. whicch is ? to be the reason for non-healing Wheelchair dependent Wound of right buttock (04/09/17) managed by wound service [facility] [place], following punch biopsy for wart 11/30/16 Dr Toribio. veruca vulgaris 09/09/17 wound still managed by [facility]. 09/23/17 non healing right ischia wound. providing in [place] care [place] [facility] [place] still managed there. has home health to do drsg changes q3 days and prn. [place] [facility] [place] [place]new R groin wound that communicates w/original 11/2016 wound-sent to Plastics to schedule I&D 03/18/18 [facility] - Continued right groin wound. Cont dressing. Scheduled for I&D Dr. Gutierrez 03/23/18. 03/23/18: [facility] OR for I and D. Has Home health. doing drsg changes Q 3days[place] [facility] [place]/18[place] next f/u ov there 04/13/18. Surgical History Cervical rib s/p excision 1973 Hx of colonoscopy with polypectomy incision and drainage (03/23/18) [facility] [place]wound debridement of chronic ischial/groin wound after wart removal; 11/2016. S/P cataract extraction S/P ureteral stent placement (09/16/18) Suprapubic catheter and vaginal sling 2011 Family History Mother , CHF at age 87. 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
[2022-12-18 07:59] VITALS: BP 158/68; PULSE 80; RESP 22; TEMP 37.7; O2SAT 91
[2022-12-18] MEDS: Ascorbic Acid 500 MG TAB PO (08:58)
[2022-12-18] MEDS: Baclofen 10 MG TAB PO ×2 (08:58→13:33)
[2022-12-18] MEDS: DULoxetine 20 MG CAP 40 MG PO (08:58)
[2022-12-18] MEDS: Calcium 600mg/Vit D 200U TAB 1 TAB PO (08:58)
[2022-12-18] MEDS: Cyanocobalamin 500 MCG TAB 1000 MCG PO (08:58)
[2022-12-18] MEDS: Oxybutynin-CR 5 MG TABCR 15 MG PO (08:59)
[2022-12-18] MEDS: Furosemide 20 MG TAB 40 MG PO (08:59)
[2022-12-18] MEDS: Glucosamine/Chondroitin CAP 1 CAP PO (08:59)
[2022-12-18] MEDS: Multivitamin TAB 1 TAB PO (08:59)
[2022-12-18 11:31] VITALS: BP 129/44; PULSE 83; RESP 16; O2SAT 98
--- NOTE | 2022-12-18 11:56 | CHAPLAIN ---
Eva was resting in bed, using her incentive spiromoter when I visited. Her granddaughter was with her. I explained my role and offered support. According to Eva's medical notes, she'll be discharged today.
--- NOTE | 2022-12-18 12:03 | CMDISCH_ITS ---
Date of service: 12/18/22 Time of Service: 12:03 LACE Index Scoring Tool Questions: Length of Stay (in days): 1 Was the patient admitted via the E.D.?: No E.D. Visits: 0 Answers: Total Score: 1 Risk of Readmission: Low Risk Care Management Discharge Plan Reason for Hospitalization: Acute cholcystitis Discharge Plan: Eva will return home with new home health services; RN/PT/OT/WOOD PRESERVING PLANT LABORER. She will follow up with her PCP and plan of care as prescribed. e will transport via private vehicle with family. Patient/Family Education Needs: Review discharge instructions, discuss Ask Me Three. Services Needed at Discharge: Home Health Care Services ([facility]: notified of pending orders RN/PT/OT/WOOD PRESERVING PLANT LABORER)
--- NOTE | 2022-12-18 12:13 | PDOC.HHF2F_ITS ---
Home Health Referral Home Health Orders Clinical synopsis of why skilled professionals are needed: Eva is an 82-year-old woman who already has home health care for sclerosis. She was admitted to the hospital on December 17 with acute cholecystitis. She underwent uncomplicated cholecystectomy. Medical diagnosis necessitation home health referral: Status postcholecystectomy Registered Nurse: Check all that apply Assess for exacerbation of medical condition, instruct patient/caregivers on signs and symptoms to report for early detection: Ordered Assess wound for signs and symptoms of infection, instruct on wound care and/or provide skilled wound care consisting of: Daily change of surgical site dressings Physical Therapist: Check all that apply Increase strength & endurance for safe mobility at home: Ordered To design/establish home maintenance program: Ordered Fall reduction therapy program for patient with history of frequent falls: Ordered Occupational Therapist: Evaluate and treat for patient unable to perform ADL/IADL/self-care: Ordered Employee Relations Assistant: Assist with community resources: Ordered Assist with termite technician care planning: Ordered Encounter Date and Reason: I certify that a FTF encounter for this patient was performed on December 18, 2022 and that such encounter was related to the primary reason the patient requires home health services. The encounter was conducted in the following manner: * By me as the certifying physician, HEADLINER INSTALLER, PA or * By an inpatient physician, HEADLINER INSTALLER or PA during an inpatient stay who communicated findings to me, Certification And Authentication I certify that I composed the above information based on my clinical judgment re lating to this patient's medical condition and, if applicable, clinical findings communicated to me by the NPP or inpatient physician who performed the FTF encounter. Name of Provider that will be monitoring home health services: Gianluca Duran
--- NOTE | 2022-12-18 12:22 | W.PM.PROGNOT ---
Date of Service Date of service: 12/18/22 Time of Service: 12:22 Assessment and Plan Assessment and plan (1) Acute cholecystitis: Status: Acute Assessment and plan: Her LFTs are starting to normalize today, and she seems to be doing well after laparoscopic cholecystectomy. We talked about transitioning home, we will make arrangements for home health, look forward to seeing her in the office and outpatient follow-up. Subjective Subjective Interval history since last seen: She is feeling better today, and says that her pain is well controlled. She is tolerated some lunch, and she is eager to get home. Exam GI Other: Abdomen is soft and nondistended. The bandages are clean and dry. Objective Last Vital Signs Temp 99.9 F H 12/18/22 07:59 Pulse 83 12/18/22 11:31 Resp 16 12/18/22 11:31 BP 129/44 L 12/18/22 11:31 Pulse Ox 98 12/18/22 11:31 Laboratory Results - last 24 hr 12/18/22 12/18/22 06:20 06:20 WBC 7.66 RBC 4.06 Hgb 12.3 Hct 37.5 MCV 92 MCH 30.3 MCHC 32.8 RDW 13.5 Plt Count 221 MPV 11.2 H Sodium 141 Potassium 3.3 L Chloride 103 Carbon Dioxide 30.8 Anion Gap 7.2 BUN 9 Creatinine 0.7 Est GFR (CKD-EPI 2020) 86.30 Glucose 137 H Calcium 8.4 L Total Bilirubin 0.5 AST 348 H ALT 586 H Alkaline Phosphatase 166 H Total Protein 6.3 L Albumin 2.6 L Time Spent with Patient Time Spent with Patient: <25 minutes Time was spent: preparing to see the patient(eg.review tests) and counseling the patient
== END 2022-12-18 17:43 | disposition home health service (06) ==
LOC: ER 14:37 → SUR 14:38 → DSU 17:12 → ER 17:12 → MS 17:13
PROVIDERS: Admitting Provider Surgery; Emergency Provider Emergency Medicine; PCP Student in an Organized Health Care Education/Training Program; Visit Provider Surgery
PROC: 0FT44ZZ Resection of Gallbladder, Percutaneous Endoscopic Approach (ICD-10-PCS; CPT 47562; principal; 2022-12-17 13:30)
DX: K80.12 Calculus of gallbladder with acute and chronic cholecystitis without obstruction (principal); K82.8 Other specified diseases of gallbladder; Z20.822 Contact with and (suspected) exposure to COVID-19; G35 Multiple sclerosis; N31.9 Neuromuscular dysfunction of bladder, unspecified; Z93.51 Cutaneous-vesicostomy status; M85.88 Other specified disorders of bone density and structure, other site; G47.39 Other sleep apnea; I10 Essential (primary) hypertension; Z79.899 Other long term (current) drug therapy
CPT/HCPCS: 47562; 36415; 36416; 80053; 82962; 85027; 87077; 87637; 96361; 96365; 96366; 96372; 99221; 99285; 74177; 81003; 81015; 83735; 85025; 87086; 87186; 88304; G0378; J1100; J1644; J2405; J2543; J2704; J3010; J3490

== ENCOUNTER → 2022-12-21 14:06 | Outpatient (BNVA) | payer MEDICARE, SELFPAY | PROVIDERS: PCP Student in an Organized Health Care Education/Training Program; Visit Provider Nurse Practitioner Gerontology | DX: Z43.5 Encounter for attention to cystostomy (principal); N31.9 Neuromuscular dysfunction of bladder, unspecified | CPT/HCPCS: 51705 ==

== ENCOUNTER → 2023-01-01 10:00 | Outpatient (BNVA) | payer MEDICARE, SELFPAY | PROVIDERS: PCP Student in an Organized Health Care Education/Training Program; Referring Provider Student in an Organized Health Care Education/Training Program; Visit Provider Physical Therapy Assistant | DX: Z48.815 Encounter for surgical aftercare following surgery on the digestive system (principal) ==

== ENCOUNTER → 2023-01-18 14:10 | Outpatient (BNVA) | payer MEDICARE, SELFPAY | PROVIDERS: PCP Student in an Organized Health Care Education/Training Program; Visit Provider Nurse Practitioner Gerontology | DX: N31.9 Neuromuscular dysfunction of bladder, unspecified (principal); R15.9 Full incontinence of feces; G35 Multiple sclerosis; Z43.5 Encounter for attention to cystostomy | CPT/HCPCS: 99214 ==

== ENCOUNTER → 2023-01-29 11:28 | Outpatient (BNVA) | payer MEDICARE, SELFPAY | PROVIDERS: PCP Student in an Organized Health Care Education/Training Program; Referring Provider Student in an Organized Health Care Education/Training Program; Visit Provider Surgery | DX: R15.9 Full incontinence of feces (principal); R60.0 Localized edema; G35 Multiple sclerosis | CPT/HCPCS: 99213; 99215 ==

== ENCOUNTER → 2023-02-15 14:01 | Outpatient (BNVA) | payer MEDICARE, SELFPAY | PROVIDERS: PCP Student in an Organized Health Care Education/Training Program; Visit Provider Nurse Practitioner Gerontology | DX: Z46.6 Encounter for fitting and adjustment of urinary device (principal); N31.9 Neuromuscular dysfunction of bladder, unspecified; G35 Multiple sclerosis | CPT/HCPCS: 99211 ==

== ENCOUNTER → 2023-02-22 11:29 | Outpatient (BNVA) | payer MEDICARE, SELFPAY | PROVIDERS: PCP Student in an Organized Health Care Education/Training Program; Referring Provider Student in an Organized Health Care Education/Training Program; Visit Provider Surgery | DX: R15.9 Full incontinence of feces (principal) | CPT/HCPCS: 99212; 99213 ==

== ENCOUNTER → 2023-03-08 14:55 | Outpatient (BNVA) | payer MEDICARE, SELFPAY | PROVIDERS: PCP Student in an Organized Health Care Education/Training Program; Visit Provider Urology | DX: Z43.5 Encounter for attention to cystostomy (principal); N31.9 Neuromuscular dysfunction of bladder, unspecified; G35 Multiple sclerosis | CPT/HCPCS: 51705 ==

== ENCOUNTER → 2023-03-22 14:32 | Outpatient (BNVA) | payer MEDICARE, SELFPAY | PROVIDERS: PCP Student in an Organized Health Care Education/Training Program; Referring Provider Student in an Organized Health Care Education/Training Program; Visit Provider Nurse Practitioner Gerontology | DX: Z46.6 Encounter for fitting and adjustment of urinary device (principal); G35 Multiple sclerosis; N31.9 Neuromuscular dysfunction of bladder, unspecified; Z92.89 Personal history of other medical treatment | CPT/HCPCS: 51705 ==

== ENCOUNTER → 2023-04-12 13:58 | Outpatient (BNVA) | payer MEDICARE, SELFPAY | PROVIDERS: PCP Student in an Organized Health Care Education/Training Program; Referring Provider Student in an Organized Health Care Education/Training Program; Visit Provider Nurse Practitioner Gerontology | DX: Z43.1 Encounter for attention to gastrostomy (principal); G35 Multiple sclerosis; N31.9 Neuromuscular dysfunction of bladder, unspecified | CPT/HCPCS: 51701 ==

== ENCOUNTER → 2023-05-03 13:52 | Outpatient (BNVA) | payer MEDICARE, SELFPAY | PROVIDERS: PCP Student in an Organized Health Care Education/Training Program; Visit Provider Nurse Practitioner Gerontology | DX: Z43.5 Encounter for attention to cystostomy (principal); N31.9 Neuromuscular dysfunction of bladder, unspecified; G35 Multiple sclerosis | CPT/HCPCS: 51705 ==

== ENCOUNTER → 2023-05-24 14:15 | Outpatient (BNVA) | payer MEDICARE, SELFPAY | PROVIDERS: PCP Student in an Organized Health Care Education/Training Program; Visit Provider Nurse Practitioner Gerontology | DX: Z46.6 Encounter for fitting and adjustment of urinary device (principal); G35 Multiple sclerosis; N31.9 Neuromuscular dysfunction of bladder, unspecified | CPT/HCPCS: 51705 ==

== ENCOUNTER → 2023-06-15 09:08 | Outpatient (BNVA) | payer MEDICARE, SELFPAY | PROVIDERS: PCP Student in an Organized Health Care Education/Training Program; Visit Provider Nurse Practitioner Gerontology | DX: Z46.6 Encounter for fitting and adjustment of urinary device (principal); G35 Multiple sclerosis; N31.9 Neuromuscular dysfunction of bladder, unspecified; Z92.89 Personal history of other medical treatment | CPT/HCPCS: 51705; 99214 ==

== ENCOUNTER → 2023-06-15 11:21 | Outpatient (BNVA) | payer MEDICARE, SELFPAY | PROVIDERS: PCP Student in an Organized Health Care Education/Training Program; Referring Provider Student in an Organized Health Care Education/Training Program; Visit Provider Psychiatry & Neurology Neurology | DX: G35 Multiple sclerosis (principal); R13.10 Dysphagia, unspecified; N31.9 Neuromuscular dysfunction of bladder, unspecified; M79.2 Neuralgia and neuritis, unspecified; R25.2 Cramp and spasm | CPT/HCPCS: 99214 ==

== ENCOUNTER → 2023-07-06 10:40 | Outpatient (BNVA) | payer MEDICARE, SELFPAY | PROVIDERS: PCP Student in an Organized Health Care Education/Training Program; Visit Provider Nurse Practitioner Gerontology | DX: Z46.6 Encounter for fitting and adjustment of urinary device (principal); G35 Multiple sclerosis; N31.8 Other neuromuscular dysfunction of bladder | CPT/HCPCS: 51705 ==

== ENCOUNTER → 2023-07-07 12:43 | Outpatient (BNVA) | payer MEDICARE, SELFPAY | PROVIDERS: PCP Student in an Organized Health Care Education/Training Program; Referring Provider Student in an Organized Health Care Education/Training Program; Visit Provider Nurse Practitioner Gerontology | DX: G35 Multiple sclerosis (principal); N31.9 Neuromuscular dysfunction of bladder, unspecified; Z92.89 Personal history of other medical treatment | CPT/HCPCS: 99213 ==

== ENCOUNTER → 2023-08-04 13:55 | Outpatient (BNVA) | payer MEDICARE, SELFPAY | PROVIDERS: PCP Student in an Organized Health Care Education/Training Program; Visit Provider Nurse Practitioner Gerontology | DX: Z46.6 Encounter for fitting and adjustment of urinary device (principal); G35 Multiple sclerosis; N31.9 Neuromuscular dysfunction of bladder, unspecified | CPT/HCPCS: 51705 ==

== ENCOUNTER → 2023-08-24 10:05 | Outpatient (BNVA) | payer MEDICARE, SELFPAY | PROVIDERS: PCP Student in an Organized Health Care Education/Training Program; Visit Provider Nurse Practitioner Gerontology | DX: Z46.6 Encounter for fitting and adjustment of urinary device (principal); G35 Multiple sclerosis; N31.9 Neuromuscular dysfunction of bladder, unspecified | CPT/HCPCS: 51705 ==

== ENCOUNTER → 2023-09-01 11:38 | Outpatient (BNVA) | payer MEDICARE, SELFPAY | PROVIDERS: PCP Student in an Organized Health Care Education/Training Program; Referring Provider Student in an Organized Health Care Education/Training Program; Visit Provider Surgery | DX: R15.9 Full incontinence of feces (principal) | CPT/HCPCS: 99213 ==

== ENCOUNTER 2023-09-10 10:08 | Inpatient (IN) | payer MEDICARE, SELFPAY ==
--- NOTE | 2023-09-09 20:44 | W.PM.OP ---
Date of service: 09/10/23 Time of Service: 14:28 Operative Note Operative Note DATE OF PROCEDURE: 09/10/23 PRE-OP DIAGNOSIS: Neurogenic bowel POST-OP DIAGNOSIS: same PROCEDURE: Creation of skin level sigmoid colostomy. SURGEON: Gianluca Duran FORENSIC TOXICOLOGIST: Alaina Day ANESTHESIA TYPE: General LMA/ETT Refer to Anesthesia Record ESTIMATED BLOOD LOSS: 25 PATHOLOGY: none sent COMPLICATIONS: None Patient was transported to: PACU Patient's condition: stable Indications: Eva is 83 years old. She has multiple sclerosis, and severe fecal incontinence. Perianal hygiene and toileting has become increasingly difficult. She will benefit from a skin level colostomy to help with management of her neurogenic bowel, and toileting. Procedure Description: After the induction of general endotracheal anesthesia, the patient was secured in the supine position. The right arm was carefully tucked and padded. Anterior abdominal wall was then prepped and draped in the usual fashion. I started with a small midline incision few centimeters above the umbilicus. I entered the peritoneal cavity under the direct vision of an optical viewing port. Next, I insufflated the peritoneal cavity and inserted a 5 mm 30 degree scope. The underlying viscera was carefully examined. There was no evidence of any traumatic injury from entry. Next, under the vision of the laparoscope I placed a 5 mm port in the right lower quadrant, and another in the infra umbilical position. The patient was then placed in Trendelenburg position with the right side down. I was able to retract the small bowel up out of the pelvis, and identified the descending colon. Some filmy adhesions of the sigmoid colon to the left lower pelvic sidewall were lysed, and the sigmoid was mobilized towards the midline. The white line of Toldt was gently incised along the distal margin allowing some mobilization of the proximal sigmoid and distal descending colon. Great care was taken to stay well away from the retroperitoneum. With the descending and sigmoid mesentery pediclised, I created a small defect in the mesentery just along the mesenteric border of the colon. Selam drain was passed through the defect, and this was used to position the colon up against the anterior abdominal wall. There was a suitable target for delivery of a skin level colostomy. Therefore, I upsized the 5 mm port in the infraumbilical position to a 12 mm port, and divided the sigmoid colon with a CIRILO stapler. There was a small amount of bleeding off of the staple line on the distal segment, that was controlled with a Hemoclip. Next, I made a semielliptical incision in the left lower quadrant at the target site for the colostomy. I dissected down to the fascia which I incised transversely. The underlying rectus muscles were split, and the posterior fascia was also incised. The a ferret limb of the colon was then delivered up to the skin, and gently secured in place with a Yobani clamp. Peritoneum was gently insufflated once again, and the descending colon was visualized. It was appropriately oriented with no twisting. Surgical site all looked hemostatic, and then I removed the 5 mm ports under the direct vision of the laparoscope. The 12 mm port was removed next, the fascia was closed with an 0 Vicryl suture. Skin was irrigated and closed with running subcuticular stitches, and the surgical sites were protected. Next we turned our attention back to the colostomy. The staple line was excised, and the colostomy was matured with interrupted Vicryl stitches. It was healthy, well-perfused, and sat flush with the skin. There was no tension on the sutures. A colostomy device was applied. The patient was then allowed to awaken from anesthesia and transferred to the recovery unit.
[2023-09-10] VITALS (13 sets, daily range): BP systolic 126–197; BP diastolic 54–94; PULSE 59–75; RESP 13–20; TEMP 35.4–36.7; O2SAT 92–99; BMI 30.2
[2023-09-10] MEDS: Celecoxib 200 MG CAP PO (10:54)
[2023-09-10] MEDS: Lactated Ringers 1,000 ML 80 ML IV (11:26)
--- NOTE | 2023-09-10 11:29 | W.ANESPRE ---
General Info Date of Service Date Performed: 09/10/23 Height: 5 ft 2 in Weight: 74.843 kg Body Mass Index (BMI): 30.2 Surgical Procedure: Operation Date: 09/10/23 11:50 Proposed Procedure Side Surgeon p Sigmoid Colectomy Laparoscopic Gianluca Duran MD Meds Allergies and Home Medications Allergies Allergy/AdvReac Type Severity Reaction Status Date / Time lisinopril AdvReac Severe cough/wheez Verified 09/10/23 10:46 ing Iodine and Iodide Containing AdvReac Intermediate redness Verified 09/10/23 10:46 Produc pregabalin [From Lyrica] AdvReac whoosy Verified 09/10/23 10:46 reported 04/2017 iodine Allergy Skin Rash Uncoded 09/10/23 10:46 Home Medication Medication Instructions Recorded cyanocobalamin (vitamin B-12) 1,000 mg PO DAILY 05/11/18 1,000 mcg tablet (Vitamin B-12) aspirin 325 mg tablet 325 mg PO DAILY 12/17/22 furosemide 20 mg tablet 20 mg PO BID 12/17/22 tramadol 50 mg tablet 50 mg PO Q8H PRN pain #12 tabs 12/18/22 Sheepskin HEEL PROTECORS #1 ea 01/31/23 oxybutynin chloride 15 mg 15 mg PO DAILY #90 tabs 01/31/23 tablet,extended release 24 hr baclofen 20 mg tablet 30 mg (1.5 x 20 mg) PO TID #405 06/15/23 tabs duloxetine 20 mg capsule,delayed 20 mg PO BID #180 caps 06/15/23 release pravastatin 20 mg tablet 20 mg PO HS #90 tabs 06/26/23 docusate sodium 100 mg capsule 400 mg PO HS 09/01/23 (Colace) bisacodyl 5 mg tablet,delayed 5 mg PO ONCE colonscopy bowel prep 09/02/23 release (Dulcolax (bisacodyl)) #8 tabs metronidazole 500 mg tablet 500 mg PO .COMPLEX #8 tabs 09/02/23 neomycin 500 mg tablet 500 mg PO .COMPLEX #8 tabs 09/02/23 ondansetron HCl 8 mg tablet 8 mg PO Q12H #3 tabs 09/02/23 polyethylene glycol 3350 17 238 g PO ONCE colonoscopy prep 09/02/23 gram/dose oral powder #238 grams Current Visit Medications: Current Medications Generic Name Dose Route Start Last Admin Trade Name Minh PRN Reason Stop Dose Admin Acetaminophen 1,000 mg 09/10/23 06:00 Acetaminophen 500 Mg Tab PO 09/10/23 23:59 PREOP AUGUSTA Celecoxib 200 mg 09/10/23 06:00 09/10/23 10:54 Celecoxib 200 Mg Cap PO 09/10/23 23:59 200 mg PREOP AUG[place]A Administration Ringer's Solution 1,000 mls @ 80 mls/hr 09/10/23 06:00 09/10/23 11:26 IV 09/10/23 23:59 80 mls/hr INFUSION AUGUSTA Administration Cefazolin Sodium/Dextrose 2 gm in 50 mls @ 100 mls/hr 09/10/23 06:00 Ancef Duplex IVPB 09/10/23 23:59 PREOP A[place]A IV Miscellaneous Supplies 1 each 09/10/23 06:00 Iv Access IV 09/10/23 23:59 DIRECTED A[place]A Sodium Chloride 0 ml 09/10/23 06:00 Normal Saline Flush 10 Ml Syr IV 09/10/23 23:59 PRN PRN Sodium Chloride 0 ml 09/10/23 06:00 Normal Saline 10 Ml Vial IJ 09/10/23 23:59 DIRECTED PRN Sterile Water 0 ml 09/10/23 06:00 Water,Injection,Sterile 10 Ml Vial IJ 09/10/23 23:59 DIRECTED PRN PFSH Active Problems Active Problems: Problem Status Onset Code Dysphagia R13.10 Advanced care planning/counseling discussion Z71.89 Wheelchair dependent Z99.3 Grieving F43.21 Pressure ulcer of ankle, right, unstageable L89.510 Stool incontinence R15.9 Osteopenia of spine M85.88 Central sleep apnea G47.31 Mixed sleep apnea G47.39 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 Neck muscle strain S16.1XXA Claw hand of right upper extremity M21.511 Trigger finger, left middle finger M65.332 Trigger thumb, left thumb M65.312 Right-sided muscle weakness M62.81 Metacarpophalangeal joint pain M25.549 Hand pain M79.643 Injury of little finger S69.90XA Pain of left middle finger M79.645 Leg pain, bilateral M79.604, M79.605 Spasticity R25.2 Leg edema 09/2018 R60.0 Osteopenia 10/11/14 M85.80 Nonsustained paroxysmal supraventricular tachycardia I47.1 Nephrolithiasis N20.0 Neurogenic bladder N31.9 Hypertension I10 Multiple sclerosis G35 Urinary catheter in place Z92.89 Medical History Medical History Palliative care encounter Right shoulder injury Pulled mm during transfer (?) H/O squamous cell carcinoma 10/21/21 Dr Catarino Menjivar C&D of L forehead lesion TIA (transient ischemic attack) (08/2018) CT (NEG) Tingling face, numb in left arm... Obesity (BMI 30.0-34.9) Wound of right buttock (04/09/17) managed by wound service [facility], following punch biopsy for wart 11/30/16 Dr Toribio. veruca vulgaris 09/09/17 wound still managed by [facility]. 09/23/17 non healing right ischia wound. HH providing in home care 01/12/18 [place] [facility] still managed there. has home health to do drsg changes q3 days and prn. next wound f/[place]07[place] [facility]-new R groin wound that communicates w/original 11/2016 wound-sent to Plastics to schedule I&D 03/18/18 [facility] - Continued right groin wound. Cont dressing. Scheduled for I&D Dr. Gutierrez 03/23/18. 03/23/18: [facility] OR for I and D. Has Home health. doing drsg changes Q 3days/[place] [facility] [place]) next f/u ov there 04/13/18. Neuropathic pain (11/04/16) left leg, great toe to hip; gabapentin caused excessive edema Benign neoplasm of colon (11/10/11) Sepsis Ambulatory dysfunction Toxic metabolic encephalopathy Non-pressure chronic ulcer of buttock with fat layer exposed 04/27/18 [facility] Last OV 11/16/18. RTC 7-10days Non-pressure chronic ulcer of right lower leg with fat layer exposed 04/27/18 [facility] Wart removal 2016. Ischial/groin I&D 03/23/18 after 2 wounds were found to communicate with each other. Packing was found in wounds. whicch is ? to be the reason for non-healing Tubular adenoma 08/02/2005 Surgical History Surgical History S/P cataract extraction Suprapubic catheter and vaginal sling 2011 S/P ureteral stent placement (09/16/18) Cervical rib s/p excision 1974 Hx of colonoscopy with polypectomy incision and drainage (03/23/18) [facility]-wound debridement of chronic ischial/groin wound after wart removal; 11/2016. Tobacco Smoking/Tobacco Use Status: Never Passive smoking exposure: No Alcohol Alcohol Intake: never Substance Use Substance use: Never Substance use type: does not use Counseling provided: none Vital Signs and Lab Results Vital Signs Most Recent Vital Signs in EMR: Most Recent Vital Signs Temp Pulse Resp BP Pulse Ox 36.2 C L 65 16 153/54 H 99 09/10/23 10:34 09/10/23 10:34 09/10/23 10:34 09/10/23 10:34 09/10/23 10:34 Lab Results Blood Type / Crossmatch: No Data to Display Complete Blood Count: No Data to Display Complete Metabolic Panel: No Data to Display Liver Function Panel: No Data to Display Coagulation Panel: No Data to Display Cardiac Panel: No Data to Display Arterial Blood Gas: No Data to Display Venous Blood Gas: No Data to Display Pancreas Panel: No Data to Display Thyroid Panel: No Data to Display Infectious Disease: No Data to Display Blood Cultures: No Data to Display Toxicology Panel: No Data to Display Imaging and Studies Imaging and Studies Study information below may be from another EMR and interpreted by another provider. Please see original notes in EMR for more complete details. Pulmonary Function Summary: Pulmonary Function Test PATIENT NAME: Eva Bonilla UNIT #: [id number] ADMITTING PROVIDER: Ewa Hamilton M.D. PRIMARY CARE PROVIDER: NOEL JIMENEZ DO DATE OF ADMIT: 08/05/21 : 1940 Date of service: 08/05/21 Time of Service: 14:44 Pulmonary Function Test Result Requesting Provider Joy Indications: Multiple Sclerosis Interpretation Spirometry: Normal muscle pressures Impression Normal muscle pressures Clinical Correlation therefore is recommended. cc: Dictated by: EWA HAMILTON MD Dictated: 08/06/21 Time: 1230 <Electronically signed by Ewa Hamilton M.D.> Date: 08/06/21 123 Date: Date: Transcribed Date: 08/06/21 Transcribed Time: 1230 By: JACINTO Other Study Summary:: echo, pelvis/abd CT, brain CT reviewed and results in chart Anesthesia Assessment and Plan Anesthesia History Personal History: No History of Anesthesia Complications Family History: No Family History of Anesthesia Complications Exercise Tolerance Exercise Tolerance: Metabolic Equivalents<4 Pertinent Negatives Pertinent Negatives: No Symptoms of GERD, No Major Cardiovascular Symptoms or Complaints and No Major Pulmonary Symptoms or Complaints Cardiac & Pulmonary Exam Cardiac Exam: Normal S1/S2 Heart Sounds Pulmonary Exam: Clear Bilateral Breath Sounds Implantable Cardiac Device Does patient have a Pacemaker or an ICD?: No Airway Exam Known Difficult Airway: No Mallampati Class: 3 Mouth Opening: Normal (> 3cm) Thyromental Distance: Greater than 3 cm Neck Range of Motion: Full ROM Neck Circumference: Normal Teeth Condition: Removable Dentures/Plates Upper and Removable Dentures/Plates Lower ASA Classification ASA Score: ASA 3 Emergency Case?: No NPO Status NPO Status: NPO Clears >2 hours, Solids >8 hours Anesthesia Plan Resuscitation Status: Full Code Anesthesia Technique: General Anesthesia Airway Planned: Endotracheal Tube Monitors Used: Standard Monitors and SedLine
[2023-09-10] MEDS: ceFAZolin 2 GM/50 ML BAG IVPB (12:54)
[2023-09-10] MEDS: Bupivacaine 0.5% Pres-Free 30 ML VIAL (14:21)
[2023-09-10] MEDS: Labetalol 100 MG/20 ML VIAL IVP (15:13)
[2023-09-10] MEDS: Normal Saline Flush 10 ML SYR IVP ×2 (16:56→19:27)
--- NOTE | 2023-09-10 17:13 | W.ANESPOSTOP ---
Postoperative Evaluation Date, Time and Location Date Performed: 09/10/23 Time Performed: 15:00 Patient Location: PACU Vital Signs Most Recent Imported Vital Signs: Most Recent Vital Signs Temp Pulse Resp BP Pulse Ox 35.9 C L 69 18 132/64 95 09/10/23 16:57 09/10/23 16:57 09/10/23 16:57 09/10/23 16:57 09/10/23 16:57 Pain Score Most Recent Pain Score: Most Recent Pain Score Pain Level 0 09/10/23 15:50 Assessment Mental Status: Awake (Alert & Oriented to Patient Baseline) Airway and Respiratory Function: Patent airway with normal (patient baseline) respiratory exam Cardiovascular Function: Hemodynamically Stable Hydration Status: Adequately Hydrated Nausea & Vomiting: No Nausea or Vomiting Pain: Pt. Denies Any Pain Peripheral Nerve Block: Patient did not receive a nerve block Postoperative Comments:: labetalol ordered for BP.
[2023-09-10] MEDS: Acetaminophen 500 MG TAB 1000 MG PO (19:26)
[2023-09-10] MEDS: Furosemide 20 MG TAB PO (19:27)
[2023-09-10] MEDS: Pravastatin 40 MG TAB 20 MG PO (19:27)
[2023-09-10] MEDS: DULoxetine 20 MG CAP PO (19:27)
[2023-09-10] MEDS: Baclofen 10 MG TAB 30 MG PO (19:27)
--- NOTE | 2023-09-10 22:42 | RESPIRATORY ---
RT seen patient for mixed sleep apnea. Patient advised RT that he is unsure of this diagnosis and never used any positive pressure as therapeutic. Patient also states will be okay without it.
[2023-09-11 03:41] VITALS: BP 115/52; PULSE 86; RESP 20; TEMP 37.5; O2SAT 93
[2023-09-11] MEDS: Acetaminophen 500 MG TAB 1000 MG PO ×3 (04:58→19:31)
[2023-09-11 06:52] LABS: Abs Immature Grans 0.03 10^3/uL (0.0-0.06); Absolute Basophil Count 0.02 10^3/uL (0.0-0.2); Absolute Eosinophil Count 0.02 10^3/uL (0.0-0.7); Absolute Monocyte Count 0.89 10^3/uL (0.1-0.8); Absolute Neutrophil Count 7.85 10^3/uL (1.2-6.7); Basophils % 0.2; Eosinophils % 0.2; HGB 11.9 g/dL (11.2-15.7); Immature Grans % 0.3; Lymphocytes % 13.7; MCH 30.1 pg (27.0-33.0); MCHC 33.1 % (32.0-36.0); MCV 91 fL (80-95); MPV 11.1 fL (8.0-11.0); Monocytes % 8.7; Neutrophils % 76.9; Platelet Count 275 10^3/uL (130-400); RBC 3.96 10^6/uL (3.93-5.22); RDW 13.1 % (11.7-14.6); RDW-SD 43.5 fL; WBC 10.21 10^3/uL (4.4-10.8)
[2023-09-11 07:20] VITALS: BP 116/56; PULSE 79; RESP 18; TEMP 37.5; O2SAT 94
--- NOTE | 2023-09-11 08:07 | W.PM.PROGNOT ---
Date of Service Date of service: 09/11/23 Time of Service: 09:45 Assessment and Plan Assessment and plan (1) Stool incontinence: Status: Acute Assessment and plan: 83-year-old woman postop day 1 from laparoscopic colostomy creation for fecal incontinence. She is hemodynamically stable and doing great subjectively. Her clinical exam is completely benign and her ostomy looks perfect. Plan: Ostomy teaching today Probable discharge home tomorrow Maintain regular diet Maintain regular home medications DVT prophylaxis Subjective Subjective Interval history since last seen: No concerns or complaints overnight. She is knitting at the bedside watching television. She says there is no pain at all. She is tolerating a regular diet and says the food is wonderful. She has an indwelling urinary catheter at baseline. She is excited and upbeat about her new way to manage her bowel function. Exam Narrative Exam Narrative: General: Nontoxic, comfortable and interactive Neuro: Alert and oriented x 3 Psych: Upbeat mood and affect, good insight and understanding Abdomen: Soft, nondistended and really not tender anywhere. Her dressings are clean dry and intact. Her ostomy is pink and healthy in appearance. There is some liquid sweat in the bag and a small amount of air but no stool yet. Objective Last Vital Signs Temp 99.5 F 09/11/23 07:20 Pulse 79 09/11/23 07:20 Resp 18 09/11/23 07:20 BP 116/56 L 09/11/23 07:20 Pulse Ox 94 09/11/23 07:20 Laboratory Results - last 24 hr 09/11/23 06:06 WBC 10.21 RBC 3.96 Hgb 11.9 Hct 36.0 MCV 91 MCH 30.1 MCHC 33.1 RDW 13.1 Plt Count 275 MPV 11.1 H Immature Gran % 0.3 Neutrophils % 76.9 Lymphocytes % 13.7 Monocytes % 8.7 Eosinophils % 0.2 Basophils % 0.2 Nucleated RBC % 0.0 Absolute Neutrophils 7.85 H Absolute Lymphocytes 1.40 Absolute Monocytes 0.89 H Absolute Eosinophils 0.02 Absolute Basophils 0.02 Time Spent with Patient Time Spent with Patient: 25-34 minutes Time was spent: preparing to see the patient(eg.review tests), indepentently interpreting results, counseling the patient and care coordination
[2023-09-11] MEDS: Cyanocobalamin 500 MCG TAB 1000 MCG PO (09:12)
[2023-09-11] MEDS: Oxybutynin-CR 5 MG TABCR 15 MG PO (09:13)
[2023-09-11] MEDS: Baclofen 10 MG TAB 30 MG PO ×3 (09:13→19:31)
[2023-09-11] MEDS: Heparin 5,000 UNITS/ML VIAL 5000 UNITS SC ×2 (09:14→19:31)
[2023-09-11] MEDS: Furosemide 20 MG TAB PO ×2 (09:15→19:31)
[2023-09-11] MEDS: Aspirin 325 MG TAB PO (09:15)
[2023-09-11] MEDS: DULoxetine 20 MG CAP PO ×2 (09:15→19:31)
[2023-09-11] MEDS: Normal Saline Flush 10 ML SYR IVP ×2 (09:16→20:25)
--- NOTE | 2023-09-11 13:53 | INITIAL_ITS ---
Date of service: 09/11/23 Time of Service: 13:53 Care Management Initial Assmt Initial Assessment REASON FOR HOSPITALIZATION:: Colostomy PREVIOUS FUNCTIONAL STATUS/SOCIAL/FAMILY SUPPORTS:: Resides in her home, son Miguel A and daughter in law, Judit reside with her since the passing of her last year. Grand-daughter Amna also lives nearby and provides day time support. Mostly independent, has MS at baseline and requires support with transfers. Colostomy to manage fecal incontinence has been discussed for the last five months per Palliative documentation. Can prepare meals and cook, laundry, sweeping and tidying. Family manages finances. CURRENT FUNCTIONAL STATUS:: Sitting up in bed, knitting, happy about procedure and ability to manage incontinence. ADVANCE DIRECTIVES:: [facility] Has patient been provided with info about the portal/API?: No Did the patient sign up for the portal?: No CODE STATUS:: DNR INSURANCE COVERAGE / FINANCIAL ISSUES:: Applied for choices for care, chose not to enter spend down. CURRENT HOME/COMMUNITY SERVICES/EQUIPMENT:: Urology: [facility] (Cortney Neville NP) and [facility] Dr. Jamil, Palliative. Motorized scooter, CPAP (at night), Lifeline, wheelchair, ramp, stair chair PRIMARY CARE PHYSICIAN:: Opal Dejesus POTENTIAL DISCHARGE NEEDS:: New orders for home health RN for new colostomy anticipated. PATIENT/FAMILY EDUCATION NEEDS:: Review discharge instructions, discuss Ask Me Three. ANTICIPATED BARRIERS TO DISCHARGE:: None identified at this time. TRANSPORTATION:: Via private vehicle with family. PLAN:: Ostomy teaching underway. Anticipate Eva will return home with new orders for home health RN to support new ostomy and follow up with community providers. Transport via private vehicle with family. CM following. PFSH All Active Problems Dysphagia (Acute) Advanced care planning/counseling discussion (Acute) Wheelchair dependent (Acute) Grieving (Chronic) Pressure ulcer of ankle, right, unstageable (Acute) Stool incontinence (Acute) Osteopenia of spine (Acute) per DEXA (2014, 2008) .. Medicare needs the M85.88 (vs just the M85.80) Central sleep apnea (Acute) Mixed sleep apnea (Acute) Hypercapnia with mixed acid-base disorder (Acute) Neck muscle strain (Acute) Rt, possible SCM mm spasm, [ ] PT Claw hand of right upper extremity (Acute) Trigger finger, left middle finger (Acute) Trigger thumb, left thumb (Acute) Right-sided muscle weakness (Acute) Hx MS with R>L effected more ... Active daily, with chores, stretching, hobbies.. [ ] band/weight work? Metacarpophalangeal joint pain (Chronic) Joint space narrowing, subchondral sclerosis, periarticular spurring per XR (04/01/21) Hand pain (Acute) lft swelling, rt pinky contracted.. [ ] PT, Naproxen Injury of little finger (Acute) Pain of left middle finger (Acute) Leg pain, bilateral (Acute) Aches, cramps (joel horses, L>R), weakness ... presuming 2' MS, but appreciate re-evaluation. 03/2021 Spasticity (Acute) Leg edema (Chronic 09/2018) Hx LE edema, but exercise and elevation had managed most of the swelling. Recent worsening seems 2' lack of exercise (due to offloading of sacral/buttock wound) and serious nephrolith. Swelling may be compounded by kidney infection, bleed and ABx. Responding well to 40mg --> manage with lasix and monitor Cr/K for now. Trial tubi-product marketing executive and ankle rolls as well.... 10/19/18, ik Significantly better after stopping gabapentin 11/2018. Osteopenia (Acute 10/11/14) left hip T score -1.5 Nonsustained paroxysmal supraventricular tachycardia (Acute) Nephrolithiasis (Acute) D/C from [facility], s/p renal Found on U/S, post UTI .. hospitalized 05/13/[address] .. [address] Cancino. CT completed to reveal right stone burdern. Neurogenic bladder (Chronic) due to multiple sclerosis; requires suprapubic catheter Note: [facility] sugggests staying at newly placed 18FR catheter. 10/05/18, ik Hypertension (Chronic) 09/12/2007, well-managed, 05/2018, ik Multiple sclerosis (Chronic) 08/01/[address] (Chronic) Sees UROL q 6-8 weeks. Medical History Palliative care encounter Right shoulder injury Pulled mm during transfer (?) H/O squamous cell carcinoma 10/21/21 Dr Toribio Shave C&D of L forehead lesion TIA (transient ischemic attack) (08/2018) CT (NEG) Tingling face, numb in left arm... Obesity (BMI 30.0-34.9) Wound of right buttock (04/09/17) managed by wound service [facility], following punch biopsy for wart 11/30/16 Dr Toribio. veruca vulgaris 09/09/17 wound still managed by [facility]. 09/23/17 non healing right ischia wound. providing in home care 01/12/18 ov at [facility]. still managed there. has home health to do drsg changes q3 days and prn. next wound f/u ov is 02/07/2018 [place] [facility] 02/22/18-[facility]-new R groin wound that communicates w/original 11/2016 wound-sent to Plastics to schedule I&D 03/18/18 [facility] - Continued right groin wound. Cont dressing. Scheduled for I&D Dr. Gutierrez 03/23/18. 03/23/18: [facility] OR for I and D. Has Home health. doing drsg changes Q 3days/prn per [facility] [place] dated (03/30/18) next f/u ov there 04/13/18. Neuropathic pain (11/04/16) left leg, great toe to hip; gabapentin caused excessive edema Benign neoplasm of colon (11/10/11) Sepsis Ambulatory dysfunction Toxic metabolic encephalopathy Non-pressure chronic ulcer of buttock with fat layer exposed 04/27/18 [facility] Last OV 11/16/18. RTC 7-10days Non-pressure chronic ulcer of right lower leg with fat layer exposed 04/27/18 [facility] Wart removal 2016. Ischial/groin I&D 03/23/18 after 2 wounds were found to communicate with each other. Packing was found in wounds. whicch is ? to be the reason for non-healing Tubular adenoma 08/02/2005 Surgical History S/P cataract extraction Suprapubic catheter and vaginal sling 2011 S/P ureteral stent placement (09/16/18) Cervical rib s/p excision 1974 Hx of colonoscopy with polypectomy incision and drainage (03/23/18) [facility]-wound debridement of chronic ischial/groin wound after wart removal; 11/2016. Family History Mother , CHF at age 87. 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
[2023-09-11 17:38] VITALS: BP 129/67; PULSE 78; RESP 18; TEMP 37.4; O2SAT 92
[2023-09-11] MEDS: Pravastatin 40 MG TAB 20 MG PO (19:30)
[2023-09-11 20:26] VITALS: BP 116/49; PULSE 84; RESP 18; TEMP 37.6; O2SAT 94
[2023-09-11] MEDS: Docusate Sodium 100 MG CAP 400 MG PO (21:14)
[2023-09-12] MEDS: Acetaminophen 500 MG TAB 1000 MG PO ×3 (04:27→21:00)
[2023-09-12 07:38] VITALS: BP 118/68; PULSE 69; RESP 18; TEMP 36.7; O2SAT 94
[2023-09-12] MEDS: Baclofen 10 MG TAB 30 MG PO ×3 (09:25→20:59)
[2023-09-12] MEDS: DULoxetine 20 MG CAP PO ×2 (09:26→21:00)
[2023-09-12] MEDS: Aspirin 325 MG TAB PO (09:27)
[2023-09-12] MEDS: Cyanocobalamin 500 MCG TAB 1000 MCG PO (09:28)
[2023-09-12] MEDS: Oxybutynin-CR 5 MG TABCR 15 MG PO (09:28)
[2023-09-12] MEDS: Normal Saline Flush 10 ML SYR IVP ×2 (09:29→21:02)
[2023-09-12] MEDS: Heparin 5,000 UNITS/ML VIAL 5000 UNITS SC ×2 (09:29→21:00)
[2023-09-12] MEDS: Furosemide 20 MG TAB PO ×2 (09:29→16:02)
[2023-09-12 21:00] VITALS: BP 120/88; PULSE 68; RESP 18; TEMP 36.7; O2SAT 96
[2023-09-12] MEDS: Pravastatin 40 MG TAB 20 MG PO (21:00)
[2023-09-12] MEDS: Docusate Sodium 100 MG CAP 400 MG PO (21:00)
--- NOTE | 2023-09-12 23:35 | W.PM.PROGNOT ---
Date of Service Date of service: 09/12/23 Time of Service: 12:30 Assessment and Plan Assessment and plan (1) Stool incontinence: Status: Acute Assessment and plan: 83-year-old woman is postop day 2 from a laparoscopic colostomy creation. She is doing great. She has a benign abdominal exam. She is tolerating a diet. Overall the patient herself seems pretty optimistic about going home but the family is pretty worried that there is no one who is able to take care of her or who understands her no plans. They are going to try to get the granddaughter to come up later tonight if possible or tomorrow morning to learn how to do it. The patient herself so far has not been able to manage applying the bag because of the fine motor skills involved but feels like she will be able to over time. At this point they seem uncomfortable with going home and the patient wants to spend another night in order to get everything in line for getting home without any issues. She does not want to be a burden for anyone. The family says it was her understanding that she would probably go home on Wednesday anyway which is what they had been planning on. They are excited that she is eligible to go home today but worried about her care tomorrow and are hopeful they can get care managers involved tomorrow morning and possible VNA to visit until they feel more comfortable. Overall plan: Colostomy teaching Care management consultation in the morning Likely discharge home tomorrow Subjective Subjective Interval history since last seen: Patient seen at the bedside happily knitting. She has no complaints. She says she is ready to go home. Family is with her at the bedside and seem more concerned. Patient says she is not really sure exactly how to change or deal with her ostomy appliance yet but is optimistic she will be ready to do it soon. The family say the granddaughter is going to be helping her and take care of her and has not yet learned. They are concerned with her going home before they know how to use the appliance. Separately, they feel like she needs visiting nursing set up. The patient is otherwise eating well having a regular diet, and has been having a little bit of bowel function. She has no pain. She denies any nausea. Exam Narrative Exam Narrative: General: Nontoxic, comfortable and interactive Neuro: Alert and oriented x 3 Psych: Good mood and affect, good insight and understanding into her condition Abdomen: Soft, nondistended and nontender. The colostomy is pink, there is a stool in the bag as well as some air. Objective Last Vital Signs Temp 98.1 F 09/12/23 21:00 Pulse 68 09/12/23 21:00 Resp 18 09/12/23 21:00 BP 120/88 09/12/23 21:00 Pulse Ox 96 09/12/23 21:00 Time Spent with Patient Time Spent with Patient: 25-34 minutes Time was spent: obtaining and/or reviewing separately otained hiistory, counseling the patient, care coordination and other (family discussion)
[2023-09-13 07:14] VITALS: BP 138/54; PULSE 74; RESP 93; TEMP 37.3
[2023-09-13 08:14] LABS: Abs Immature Grans 0.02 10^3/uL (0.0-0.06); Absolute Basophil Count 0.03 10^3/uL (0.0-0.2); Absolute Eosinophil Count 0.24 10^3/uL (0.0-0.7); Absolute Lymphocyte Count 1.45 10^3/uL (1.2-3.4); Absolute Monocyte Count 0.47 10^3/uL (0.1-0.8); Absolute Neutrophil Count 4.43 10^3/uL (1.2-6.7); Basophils % 0.5; Eosinophils % 3.6; HCT 37.5 % (36.0-46.0); HGB 12.4 g/dL (11.2-15.7); Immature Grans % 0.3; Lymphocytes % 21.8; MCH 30.2 pg (27.0-33.0); MCHC 33.1 % (32.0-36.0); MCV 92 fL (80-95); MPV 10.7 fL (8.0-11.0); Monocytes % 7.1; Neutrophils % 66.7; Platelet Count 214 10^3/uL (130-400); RDW 13.2 % (11.7-14.6); WBC 6.64 10^3/uL (4.4-10.8)
[2023-09-13] MEDS: Heparin 5,000 UNITS/ML VIAL 5000 UNITS SC (09:33)
[2023-09-13] MEDS: Normal Saline Flush 10 ML SYR IVP (09:34)
[2023-09-13] MEDS: DULoxetine 20 MG CAP PO (09:34)
[2023-09-13] MEDS: Oxybutynin-CR 5 MG TABCR 15 MG PO (09:35)
[2023-09-13] MEDS: Furosemide 20 MG TAB PO (09:35)
[2023-09-13] MEDS: Baclofen 10 MG TAB 30 MG PO ×2 (09:35→14:50)
[2023-09-13] MEDS: Aspirin 325 MG TAB PO (09:35)
[2023-09-13] MEDS: Cyanocobalamin 500 MCG TAB 1000 MCG PO (09:36)
--- NOTE | 2023-09-13 11:17 | W.PM.DS.N ---
Date of service: 09/13/23 Time of Service: 11:17 DS: Diagnosis Discharge Diagnosis (1) Stool incontinence: Status: Acute Asessment and Plan: Status postelective and sigmoid colostomy for fecal incontinence. Outpatient postoperative follow-up Discharge Plan Disposition Patient Disposition: Home Condition: Good Discharge Details Reason For Visit: colostomy Admit Date/Time: 09/10/23 10:08 Admit Provider: Gianluca Duran Attending Provider: Gianluca Duran Primary Care Provider: Opal Dejesus Hospital Course Hospital Course: Eva is 83 years old, she has been dealing with urinary and fecal incontinence secondary to her multiple sclerosis. She has had increasing difficulty managing basic toileting, and perianal hygiene. She elected to undergo creation of a skin level colostomy for definitive treatment of the incontinence. She was brought to the operating room and underwent laparoscopic creation of an end sigmoid colostomy. She tolerated the operation well, and her diet was advanced on postoperative day 1 without any issue. Stoma was productive of stool, and she underwent some stoma training here with the assistance of her granddaughter. She was discharged home in good condition with outpatient follow-up. Home Meds and New Rx's Prescriptions: New tramadol 50 mg tablet 50 mg PO Q6H PRNQty: 10 0RF Continued baclofen 20 mg tablet 30 mg PO TID Qty: 405 3RF duloxetine 20 mg capsule,delayed release(DR/EC) 20 mg PO BID Qty: 180 3RF oxybutynin chloride 15 mg tablet extended release 24hr 15 mg PO DAILY Qty: 90 3RF (DME) [employer] See Rx Instructions .Route .MEDSUPPLY Qty: 1 1RF Rx Instructions: Wear qHS for nocturnal pressure sore prevention pravastatin 20 mg tablet 20 mg PO HS Qty: 90 4RF cyanocobalamin (vitamin B-12) [Vitamin B-12] 1,000 mcg Tablet 1,000 mg PO DAILY docusate sodium [Colace] 100 mg capsule 400 mg PO HS furosemide 20 mg Tablet 20 mg PO BID aspirin 325 mg Tablet 325 mg PO DAILY Discontinued polyethylene glycol 3350 17 gram/dose powder 238 g PO ONCE Qty: 238 0RF Rx Instructions: take per colonoscopy instructions bisacodyl [Dulcolax (bisacodyl)] 5 mg tablet,delayed release (DR/EC) 5 mg PO ONCE Qty: 8 0RF Rx Instructions: take per colonoscopy instructions neomycin 500 mg tablet 500 mg PO .COMPLEX Qty: 8 0RF Rx Instructions: 500 mg orally Per bowel surgery instructions; metronidazole 500 mg tablet 500 mg PO .COMPLEX Qty: 8 0RF Rx Instructions: 500 mg orally Per bowel surgery instructions; ondansetron HCl 8 mg tablet 8 mg PO Q12H Qty: 3 0RF tramadol 50 mg tablet 50 mg PO Q8H PRN (Reason: pain) Qty: 12 0RF Patient Comments: 09/10/23 10:51am Bess RN - last took tramadol when Eva had gall bladder removed (@ 1 year ago) Rx Instructions: Take 1 tablet by mouth up to every 8 hours if needed for severe pain. This medication can be quite strong, so please be careful using it. Tablets can be broken in half lower dosing if necessary. Discharge Instructions Instructions: Colostomy Care (GEN) Additional Instructions: Eva, it was so nice seeing you in the hospital, and I am glad that you are making a nice recovery from the operation. Hopefully, this will make your life a little easier. Like we talked about in the hospital, the biggest challenge will be adapting to life with a colostomy, but hopefully, the information that you had before hand will make this a little smoother. With regards to the actual surgery itself, everything went fine. As you can see, the incisions are relatively small, and hopefully will not cause you any significant trouble. I would expect to have some improvement in that bruising in the days to come. Please let me know if you notice any other worrisome changes around the skin, such as change in color to bright red, or discharge from the wounds. You can wash all of those incisions with soap and water every day. After your discharge, we will set you up with an account for a company called [employer] to help with colostomy supplies moving forward. We just need to find what will work for you in the meantime. I would like you to be a little careful lifting things over the next week or 2. I generally recommend keeping it to less than 10 pounds in the early part of your recovery. After we see you in the office, I would expect to liberate that. We have made a follow-up appointment on September at 11 AM. If you have any questions in the meantime, please do not hesitate to call at any point. Keep an ice bag on the incision. 20 minutes on and 20 minutes off. Ice keeps the swelling down and swelling causes pain. Make sure you wrap the ice pack in a towel and don't apply directly to the skin. -F/u appt 09/30/23 at 11:00am [facility] Surgery Clinic: [phone] -Do Not remove any steri tapes/ purple skin glue that cover the incision. -pain meds are very constipating: if you do not move your bowels daily take a dose of OTC Miralax -It is ok to shower. No bathe, soaking, swimming or hot tubs -Keep wound clean and dry. Wash incision with soap and water daily. Pat dry, don't rub. -Protein supplements daily. You may find that your appetite is smaller. Eat 3-6 small meals throughout the day. It is important to drink lots of water after surgery, 6-10 glasses a day. -If you were given an incentive spirometry (breathing furnace utility operator?), continue to do this 10x/hour while awake. -You may find that you are very tired after surgery- this is normal. -Home health care [employer] supplies: adhesive remover skin prep stoma powder stoma paste 2 piece [place] vented bag w/ velcro closure Size today 4x2cm Stand Alone Forms: Nursing Discharge Form Referrals: Opal Dejesus DO [Primary Care Provider] - 09/16/23 1:30 pm Gianluca Duran MD [ [facility] STAFF PHYSICIAN] - 09/30/23 11:00 am Activity:: No heavy lifting Equipment/Supplies:: Colostomy supplies Diet:: As Tolerated Discharge Orders Discharge Orders: Discharge Order (Routine); Ordered 09/13/23 Ordered By: Myla Buckley Discharge Data Discharge Date/Time-TO BE ENTERED AT DEPARTURE: 09/13/23 15:23 DS: Summary Time Spent with Patient providing and/or coordinating discharge services: Greater than 30 minutes Status at Discharge Functional status at discharge: wheelchair bound Overall status at discharge: patient is back to baseline Mental Status: mental status grossly normal Speech and Movement: speech and movement normal Mood: congruent mood Affect: normal affect Quality:SDOH Health Related Social Needs: No Data to Display Exam GI Other: Abdomen is soft and nondistended. Incisions are clean. Minimal ecchymosis in the infraumbilical port site. No hernias. Psych Mental Status: mental status grossly normal Speech and Movement: speech and movement normal Mood: congruent mood Affect: normal affect DS: Data Vitals/I&O Vitals and I&O: Vital Signs Temperature 99.1 F 09/13/23 07:14 Temperature Source Tympanic 09/13/23 07:14 Pulse 74 09/13/23 07:14 Pulse Rhythm Regular 09/13/23 02:48 Respiratory Rate 93 H 09/13/23 07:14 Respiratory Effort Normal, Non-Labored 09/13/23 02:48 Respiratory Depth Normal 09/13/23 02:48 Respiratory Pattern Normal 09/13/23 02:48 Blood Pressure 138/54 L 09/13/23 07:14 Pulse Oximetry 96 09/12/23 21:00 Respiratory End-tidal CO2 45 09/10/23 15:31 Oxygen Delivery Method Room Air 09/13/23 07:14 Oxygen Flow Rate 0 09/13/23 07:14 Pain Level 4 09/13/23 07:14 Intake & Output 09/12/23 09/12/23 09/13/23 11:59 23:59 11:59 Intake Total 1999 Output Total 1600 / 3800 2200 / 3800 Balance -1590 / -1800 -210 / -1800 Intake: IV Oral 1979 Output: Urine 1600 / 3800 2200 / 3800 Other: Urine Color Yellow Yellow Urine Appearance Clear Clear Clear Data Completed and Pending Labs on day of discharge: Labs from last 24 hours 09/13/23 08:05 WBC 6.64 RBC 4.10 Hgb 12.4 Hct 37.5 MCV 92 MCH 30.2 MCHC 33.1 RDW 13.2 Plt Count 214 MPV 10.7 Immature Gran % 0.3 Neutrophils % 66.7 Lymphocytes % 21.8 Monocytes % 7.1 Eosinophils % 3.6 Basophils % 0.5 Nucleated RBC % 0.0 Absolute Neutrophils 4.43 Absolute Lymphocytes 1.45 Absolute Monocytes 0.47 Absolute Eosinophils 0.24 Absolute Basophils 0.03 PFSH All Active Problems Colostomy care (Acute) Dysphagia (Acute) Advanced care planning/counseling discussion (Acute) Wheelchair dependent (Acute) Grieving (Chronic) Pressure ulcer of ankle, right, unstageable (Acute) Stool incontinence (Acute) Osteopenia of spine (Acute) per DEXA (2014, 2008) .. Medicare needs the M85.88 (vs just the M85.80) Central sleep apnea (Acute) Mixed sleep apnea (Acute) Hypercapnia with mixed acid-base disorder (Acute) Neck muscle strain (Acute) Rt, possible SCM mm spasm, [ ] PT Claw hand of right upper extremity (Acute) Trigger finger, left middle finger (Acute) Trigger thumb, left thumb (Acute) Right-sided muscle weakness (Acute) Hx MS with R>L effected more ... Active daily, with chores, stretching, hobbies.. [ ] band/weight work? Metacarpophalangeal joint pain (Chronic) Joint space narrowing, subchondral sclerosis, periarticular spurring per XR (04/01/21) Hand pain (Acute) lft swelling, rt pinky contracted.. [ ] PT, Naproxen Injury of little finger (Acute) Pain of left middle finger (Acute) Leg pain, bilateral (Acute) Aches, cramps (joel horses, L>R), weakness ... presuming 2' MS, but appreciate re-evaluation. 03/2021 Spasticity (Acute) Leg edema (Chronic 09/2018) Hx LE edema, but exercise and elevation had managed most of the swelling. Recent worsening seems 2' lack of exercise (due to offloading of sacral/buttock wound) and serious nephrolith. Swelling may be compounded by kidney infection, bleed and ABx. Responding well to 40mg --> manage with lasix and monitor Cr/K for now. Trial tubi-online merchant and ankle rolls as well.... 10/19/18, ik Significantly better after stopping gabapentin 11/2018. Osteopenia (Acute 10/11/14) left hip T score -1.5 Nonsustained paroxysmal supraventricular tachycardia (Acute) Nephrolithiasis (Acute) [place] [facility]/p renal Found on U/S, post UTI .. hospitalized 05/13/[address] Cancino. CT completed to reveal right stone burdern. Neurogenic bladder (Chronic) due to multiple sclerosis; requires suprapubic catheter Note: [facility] sugggests staying at newly placed 18FR catheter. 10/05/18, ik Hypertension (Chronic) 09/12/2007, well-managed, 05/2018, ik Multiple sclerosis (Chronic) 08/01/[address] (Chronic) Sees UROL q 6-8 weeks. Medical History Palliative care encounter Right shoulder injury Pulled mm during transfer (?) H/O squamous cell carcinoma 10/21/21 Dr Catarino Menjivar C&D of L forehead lesion TIA (transient ischemic attack) (08/2018) CT (NEG) Tingling face, numb in left arm... Obesity (BMI 30.0-34.9) Wound of right buttock (04/09/17) managed by wound service [facility], following punch biopsy for wart 11/30/16 Dr Toribio. veruca vulgaris 09/09/17 wound still managed by [facility]. 09/23/17 non healing right ischia wound. HH providing in [place] care [place] [facility] [place] still managed there. has home health to do drsg changes q3 days and prn. [place] [facility]new R groin wound that communicates w/original 11/2016 wound-sent to Plastics to schedule I&D 03/18/18 [facility] - Continued right groin wound. Cont dressing. Scheduled for I&D Dr. Gutierrez 03/23/18. 03/23/18: [facility] [place] for I and D. Has Home health. doing drsg changes Q 3days/[place] [facility] [place] next f/u ov there 04/13/18. Neuropathic pain (11/04/16) left leg, great toe to hip; gabapentin caused excessive edema Benign neoplasm of colon (11/10/11) Sepsis Ambulatory dysfunction Toxic metabolic encephalopathy Non-pressure chronic ulcer of buttock with fat layer exposed 04/27/18 [facility]ound [facility]aling [facility] Last OV 11/16/18. RTC 7-10days Non-pressure chronic ulcer of right lower leg with fat layer exposed 04/27/18 [facility] Wart removal 2016. Ischial/groin I&D 03/23/18 after 2 wounds were found to communicate with each other. Packing was found in wounds. whicch is ? to be the reason for non-healing Tubular adenoma 08/02/2005 Surgical History S/P cataract extraction Suprapubic catheter and vaginal sling 2011 S/P ureteral stent placement (09/16/18) Cervical rib s/p excision 1973 Hx of colonoscopy with polypectomy incision and drainage (03/23/18) [facility]wound debridement of chronic ischial/groin wound after wart removal; 11/2016. Family History Mother , CHF at age 87. 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
--- NOTE | 2023-09-13 11:31 | W.PM.PROGNOT ---
Date of Service Date of service: 09/13/23 Time of Service: 11:32 Assessment and Plan Assessment and plan (1) Colostomy care: Status: Acute Assessment and plan: Eva is really doing great, and I think she would be fine for discharge later today. We just need to make sure that her and her family can manage the back appropriately. Otherwise, no medical contraindications to discharge home this afternoon. Subjective Subjective Interval history since last seen: Eva's been doing great since the creation of her colostomy. She feels wonderful, but has had a little bit of difficulty managing the clip on the colostomy bag, so we will try a Velcro device today. Exam GI Other: Abdomen soft and nondistended. The colostomy looks fine. Objective Last Vital Signs Temp 99.1 F 09/13/23 07:14 Pulse 74 09/13/23 07:14 Resp 93 H 09/13/23 07:14 BP 138/54 L 09/13/23 07:14 Pulse Ox 96 09/12/23 21:00 Laboratory Results - last 24 hr 09/13/23 08:05 WBC 6.64 RBC 4.10 Hgb 12.4 Hct 37.5 MCV 92 MCH 30.2 MCHC 33.1 RDW 13.2 Plt Count 214 MPV 10.7 Immature Gran % 0.3 Neutrophils % 66.7 Lymphocytes % 21.8 Monocytes % 7.1 Eosinophils % 3.6 Basophils % 0.5 Nucleated RBC % 0.0 Absolute Neutrophils 4.43 Absolute Lymphocytes 1.45 Absolute Monocytes 0.47 Absolute Eosinophils 0.24 Absolute Basophils 0.03 Time Spent with Patient Time Spent with Patient: 25-34 minutes Time was spent: preparing to see the patient(eg.review tests), referring, communicating with other health healthcare administration internship, counseling the patient and care coordination
[2023-09-13] MEDS: Acetaminophen 500 MG TAB 1000 MG PO (12:18)
--- NOTE | 2023-09-13 12:34 | CMDISCH_ITS ---
Date of service: 09/13/23 Time of Service: 12:34 LACE Index Scoring Tool Questions: Length of Stay (in days): 3 Was the patient admitted via the E.D.?: Yes E.D. Visits: 0 Answers: Total Score: 6 Risk of Readmission: Low Risk Care Management Discharge Plan Reason for Hospitalization: Colostomy Discharge Plan: Eva will return home today with new orders for HH RN to help her adjust to her new colostomy, and to help with ordering supplies. CM request ed that she is sent home with a week worth of supplies, at the request of HH. Her family will drive her home via private vehicle. She will follow up with her PCP and discharge plan of care. She is happy to be going home. Patient/Family Education Needs: Review discharge instructions and limitations, discussion of self care needs including ask me three. Services Needed at Discharge: Home Health Care Services (new HH RN) [facility] Health Related Social Needs: No Data to Display
--- NOTE | 2023-09-13 13:14 | PDOC.HHF2F_ITS ---
Home Health Referral Home Health Orders Clinical synopsis of why skilled professionals are needed: new colostomy Medical diagnosis necessitation home health referral: new colostomy Registered Nurse: Check all that apply Instruct on ostomy care: Ordered Assess for exacerbation of medical condition, instruct patient/caregivers on signs and symptoms to report for early detection: Ordered Physical Therapist: Check all that apply Increase strength & endurance for safe mobility at home: Ordered (Looking for advice on additional set up and equipment to improve ease and safety of transfers for both family and patient.) Other: Evaluate motorized scooter and wheelchair. Modified to prevent trauma to lower extremities with transfers (has resulted in right lateral ankle wound). Question padding on chairs for protection Occupational Therapist: Evaluate and treat for patient unable to perform ADL/IADL/self-care: Ordered Refining Supervisor: Assist with community resources: Ordered Assist with fpc care planning: Ordered Other: Help identify additional resources. Is patient eligible for RCT? Help ship superintendent with [employer] Home Bound Status Requires the aid of supportive device (check all that apply): Wheelchair Use of Special Transportation (Describe transportation and medical necessity): uses wheelchair/not mobile Encounter Date and Reason: I certify that a FTF encounter for this patient was performed on September 13, 2023 and that such encounter was related to the primary reason the patient requires home health services. The encounter was conducted in the following manner: * By me as the certifying physician, AUDIOMETRIC TECHNICIAN, PA or * By an inpatient physician, AUDIOMETRIC TECHNICIAN or PA during an inpatient stay who communicated findings to me, Certification And Authentication I certify that I composed the above information based on my clinical judgment relating to this patient's medical condition and, if applicable, clinical findings communicated to me by the NPP or inpatient physician who performed the FTF encounter. Name of Provider that will be monitoring home health services: Opal Dejesus
--- NOTE | 2023-09-13 14:02 | W.PM.DS.N ---
Date of service: 09/13/23 Time of Service: 14:03 DS: Diagnosis Discharge Diagnosis (1) Colostomy care: Status: Acute (2) Stool incontinence: Status: Acute (3) Dysphagia: Status: Acute (4) Hypertension: Status: Chronic (5) Nonsustained paroxysmal supraventricular tachycardia: Status: Acute (6) Nephrolithiasis: Status: Acute (7) Urinary catheter in place: Status: Chronic (8) Neurogenic bladder: Status: Chronic (9) Pressure ulcer of ankle, right, unstageable: Status: Acute (10) Osteopenia of spine: Status: Acute (11) Multiple sclerosis: Status: Chronic (12) Restrictive lung mechanics due to neuromuscular disease: Status: Suspected (13) Mixed sleep apnea: Status: Acute (14) Central sleep apnea: Status: Acute (15) Wheelchair dependent: Status: Acute (16) Leg edema: Status: Chronic (17) Spasticity: Status: Acute (18) Obesity (BMI 30.0-34.9): (19) TIA (transient ischemic attack): (20) Neuropathic pain: (21) Ambulatory dysfunction: Discharge Plan Disposition Patient Disposition: Home Condition: Good Discharge Details Reason For Visit: colostomy Admit Date/Time: 09/10/23 10:08 Admit Provider: Gianluca Duran Attending Provider: Gianluca Duran Primary Care Provider: Opal Dejesus Hospital Course Hospital Course: Eva is 83 years old, she has been dealing with urinary and fecal incontinence secondary to her multiple sclerosis. She has had increasing difficulty managing basic toileting, and perianal hygiene. She elected to undergo creation of a skin level colostomy for definitive treatment of the incontinence. She was brought to the operating room and underwent laparoscopic creation of an end sigmoid colostomy. She tolerated the operation well, and her diet was advanced on postoperative day 1 without any issue. Stoma was productive of stool, and she underwent some stoma training here with the assistance of her granddaughter. She was discharged home in good condition with outpatient follow-up. Home Meds and New Rx's Prescriptions: New tramadol 50 mg tablet 50 mg PO Q6H PRNQty: 10 0RF Continued baclofen 20 mg tablet 30 mg PO TID Qty: 405 3RF duloxetine 20 mg capsule,delayed release(DR/EC) 20 mg PO BID Qty: 180 3RF oxybutynin chloride 15 mg tablet extended release 24hr 15 mg PO DAILY Qty: 90 3RF (DME) [employer] See Rx Instructions .Route .MEDSUPPLY Qty: 1 1RF Rx Instructions: Wear qHS for nocturnal pressure sore prevention pravastatin 20 mg tablet 20 mg PO HS Qty: 90 4RF cyanocobalamin (vitamin B-12) [Vitamin B-12] 1,000 mcg Tablet 1,000 mg PO DAILY docusate sodium [Colace] 100 mg capsule 400 mg PO HS furosemide 20 mg Tablet 20 mg PO BID aspirin 325 mg Tablet 325 mg PO DAILY Discontinued polyethylene glycol 3350 17 gram/dose powder 238 g PO ONCE Qty: 238 0RF Rx Instructions: take per colonoscopy instructions bisacodyl [Dulcolax (bisacodyl)] 5 mg tablet,delayed release (DR/EC) 5 mg PO ONCE Qty: 8 0RF Rx Instructions: take per colonoscopy instructions neomycin 500 mg tablet 500 mg PO .COMPLEX Qty: 8 0RF Rx Instructions: 500 mg orally Per bowel surgery instructions; metronidazole 500 mg tablet 500 mg PO .COMPLEX Qty: 8 0RF Rx Instructions: 500 mg orally Per bowel surgery instructions; ondansetron HCl 8 mg tablet 8 mg PO Q12H Qty: 3 0RF tramadol 50 mg tablet 50 mg PO Q8H PRN (Reason: pain) Qty: 12 0RF Patient Comments: 09/10/23 10:51am Bess RN - last took tramadol when Eva had gall bladder removed (@ 1 year ago) Rx Instructions: Take 1 tablet by mouth up to every 8 hours if needed for severe pain. This medication can be quite strong, so please be careful using it. Tablets can be broken in half lower dosing if necessary. Discharge Instructions Instructions: Colostomy Care (GEN) Additional Instructions: Eva, it was so nice seeing you in the hospital, and I am glad that you are making a nice recovery from the operation. Hopefully, this will make your life a little easier. Like we talked about in the hospital, the biggest challenge will be adapting to life with a colostomy, but hopefully, the information that you had before hand will make this a little smoother. With regards to the actual surgery itself, everything went fine. As you can see, the incisions are relatively small, and hopefully will not cause you any significant trouble. I would expect to have some improvement in that bruising in the days to come. Please let me know if you notice any other worrisome changes around the skin, such as change in color to bright red, or discharge from the wounds. You can wash all of those incisions with soap and water every day. After your discharge, we will set you up with an account for a company called [employer] to help with colostomy supplies moving forward. We just need to find what will work for you in the meantime. I would like you to be a little careful lifting things over the next week or 2. I generally recommend keeping it to less than 10 pounds in the early part of your recovery. After we see you in the office, I would expect to liberate that. We have made a follow-up appointment on September at 11 AM. If you have any questions in the meantime, please do not hesitate to call at any point. Keep an ice bag on the incision. 20 minutes on and 20 minutes off. Ice keeps the swelling down and swelling causes pain. Make sure you wrap the ice pack in a towel and don't apply directly to the skin. -F/u appt 09/30/23 at 11:00am [facility]: [phone] -Do Not remove any steri tapes/ purple skin glue that cover the incision. -pain meds are very constipating: if you do not move your bowels daily take a dose of OTC Miralax -It is ok to shower. No bathe, soaking, swimming or hot tubs -Keep wound clean and dry. Wash incision with soap and water daily. Pat dry, don't rub. -Protein supplements daily. You may find that your appetite is smaller. Eat 3-6 small meals throughout the day. It is important to drink lots of water after surgery, 6-10 glasses a day. -If you were given an incentive spirometry (breathing disposal man?), continue to do this 10x/hour while awake. -You may find that you are very tired after surgery- this is normal. -Home health care [employer] supplies: adhesive remover skin prep stoma powder stoma paste 2 piece Ernestina vented bag w/ velcro closure Size today 4x2cm Activity:: No heavy lifting Equipment/Supplies:: Colostomy supplies Diet:: As Tolerated Discharge Orders Discharge Orders: Discharge Order (Routine); Ordered 09/13/23 Ordered By: Myla Buckley DS: Summary Time Spent with Patient providing and/or coordinating discharge services: Less than 30 minutes Status at Discharge Functional status at discharge: wheelchair bound Overall status at discharge: patient is progressing back to baseline Mental Status: mental status grossly normal Speech and Movement: speech and movement normal Mood: congruent mood Affect: normal affect Quality:SDOH Health Related Social Needs: No Data to Display Exam Psych Mental Status: mental status grossly normal Speech and Movement: speech and movement normal Mood: congruent mood Affect: normal affect DS: Data Vitals/I&O Vitals and I&O: Vital Signs Temperature 37.3 C 09/13/23 07:14 Temperature Source Tympanic 09/13/23 07:14 Pulse 74 09/13/23 07:14 Pulse Rhythm Regular 09/13/23 02:48 Respiratory Rate 93 H 09/13/23 07:14 Respiratory Effort Normal, Non-Labored 09/13/23 02:48 Respiratory Depth Normal 09/13/23 02:48 Respiratory Pattern Normal 09/13/23 02:48 Blood Pressure 138/54 L 09/13/23 07:14 Pulse Oximetry 96 09/12/23 21:00 Respiratory End-tidal CO2 45 09/10/23 15:31 Oxygen Delivery Method Room Air 09/13/23 07:14 Oxygen Flow Rate 0 09/13/23 07:14 Pain Level 4 09/13/23 07:14 Intake & Output 09/12/23 09/13/23 09/13/23 23:59 11:59 23:59 Intake Total 1989 700 / 710 Output Total 2200 / 3800 Balance -210 / -1800 700 / 710 Intake: IV Oral 1979 700 / 700 Output: Urine 2200 / 3800 Other: Urine Color Yellow Urine Appearance Clear Clear Data Completed and Pending Labs on day of discharge: Labs from last 24 hours 09/13/23 08:05 WBC 6.64 RBC 4.10 Hgb 12.4 Hct 37.5 MCV 92 MCH 30.2 MCHC 33.1 RDW 13.2 Plt Count 214 MPV 10.7 Immature Gran % 0.3 Neutrophils % 66.7 Lymphocytes % 21.8 Monocytes % 7.1 Eosinophils % 3.6 Basophils % 0.5 Nucleated RBC % 0.0 Absolute Neutrophils 4.43 Absolute Lymphocytes 1.45 Absolute Monocytes 0.47 Absolute Eosinophils 0.24 Absolute Basophils 0.03 PFSH All Active Problems Colostomy care (Acute) Dysphagia (Acute) Advanced care planning/counseling discussion (Acute) Wheelchair dependent (Acute) Grieving (Chronic) Pressure ulcer of ankle, right, unstageable (Acute) Stool incontinence (Acute) Osteopenia of spine (Acute) per DEXA (2014, 2008) .. Medicare needs the M85.88 (vs just the M85.80) Central sleep apnea (Acute) Mixed sleep apnea (Acute) Hypercapnia with mixed acid-base disorder (Acute) Neck muscle strain (Acute) Rt, possible SCM mm spasm, [ ] PT Claw hand of right upper extremity (Acute) Trigger finger, left middle finger (Acute) Trigger thumb, left thumb (Acute) Right-sided muscle weakness (Acute) Hx MS with R>L effected more ... Active daily, with chores, stretching, hobbies.. [ ] band/weight work? Metacarpophalangeal joint pain (Chronic) Joint space narrowing, subchondral sclerosis, periarticular spurring per XR (04/01/21) Hand pain (Acute) lft swelling, rt pinky contracted.. [ ] PT, Naproxen Injury of little finger (Acute) Pain of left middle finger (Acute) Leg pain, bilateral (Acute) Aches, cramps (joel horses, L>R), weakness ... presuming 2' MS, but appreciate re-evaluation. 03/2021 Spasticity (Acute) Leg edema (Chronic 09/2018) Hx LE edema, but exercise and elevation had managed most of the swelling. Recent worsening seems 2' lack of exercise (due to offloading of sacral/buttock wound) and serious nephrolith. Swelling may be compounded by kidney infection, bleed and ABx. Responding well to 40mg --> manage with lasix and monitor Cr/K for now. Trial tubi-flour blender helper and ankle rolls as well.... 10/19/18, ik Significantly better after stopping gabapentin 11/2018. Osteopenia (Acute 10/11/14) left hip T score -1.5 Nonsustained paroxysmal supraventricular tachycardia (Acute) Nephrolithiasis (Acute) D/C from [facility], s/p renal Found on U/S, post UTI .. hospitalized 05/13/[address] .. [address] Cancino. CT completed to reveal right stone burdern. Neurogenic bladder (Chronic) due to multiple sclerosis; requires suprapubic catheter Note: [facility] sugggests staying at newly placed 18FR catheter. 10/05/18, ik Hypertension (Chronic) 09/12/2007, well-managed, 05/2018, ik Multiple sclerosis (Chronic) 08/01/[address] (Chronic) Sees UROL q 6-8 weeks. Medical History Palliative care encounter Right shoulder injury Pulled mm during transfer (?) H/O squamous cell carcinoma 10/21/21 Dr Catarino Menjivar C&D of L forehead lesion TIA (transient ischemic attack) (08/2018) CT (NEG) Tingling face, numb in left arm... Obesity (BMI 30.0-34.9) Wound of right buttock (04/09/17) managed by wound service [facility], following punch biopsy for wart 11/30/16 Dr Toribio. veruca vulgaris 09/09/17 wound still managed by [facility]. 09/23/17 non healing right ischia wound. HH providing in home care 01/12/18 ov at [facility]. still managed there. has home health to do drsg changes q3 days and prn. next wound f/u ov is 02/07/2018 at [facility]. 02/22/18-[facility]-new R groin wound that communicates w/original 11/2016 wound-sent to Plastics to schedule I&D 03/18/18 [facility] - Continued right groin wound. Cont dressing. Scheduled for I&D Dr. Gutierrez 03/23/18. 03/23/18: [facility] OR for I and D. Has Home health. doing drsg changes Q 3days/prn per [facility] note dated (03/30/18) next f/u ov there 04/13/18. Neuropathic pain (11/04/16) left leg, great toe to hip; gabapentin caused excessive edema Benign neoplasm of colon (11/10/11) Sepsis Ambulatory dysfunction Toxic metabolic encephalopathy Non-pressure chronic ulcer of buttock with fat layer exposed 04/27/18 [facility] Last OV 11/16/18. RTC 7-10days Non-pressure chronic ulcer of right lower leg with fat layer exposed 04/27/18 [facility] Wart removal 2016. Ischial/groin I&D 03/23/18 after 2 wounds were found to communicate with each other. Packing was found in wounds. whicch is ? to be the reason for non-healing Tubular adenoma 08/02/2005 Surgical History S/P cataract extraction Suprapubic catheter and vaginal sling 2011 S/P ureteral stent placement (09/16/18) Cervical rib s/p excision 1973 Hx of colonoscopy with polypectomy incision and drainage (03/23/18) [facility]-wound debridement of chronic ischial/groin wound after wart removal; 11/2016. Family History Mother , CHF at age 87. 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[employer] What is your relationship status?: Panel score (0-1 are the most socially isolated patients): 1 Frequency: 3-4 times per week Seatbelt use: always Water heater temp set <120 deg: Yes Working smoke detector in home: Yes Fire extinguisher in home: Yes Carbon monox detector in home: Yes Firearms in home: Yes Time Spent with Patient Time Spent with Patient: <45 minutes Time was spent: preparing to see the patient(eg.review tests), obtaining and/or reviewing separately otained hiistory, ordering medications,tests, procedures, referring, communicating with other health career orientation teacher, indepentently interpreting results, counseling the patient and care coordination
== END 2023-09-13 15:23 | disposition home or self-care (01) | DRG 330 ==
LOC: PDS 10:09 → MS 15:56
PROVIDERS: Admitting Provider Surgery; PCP Student in an Organized Health Care Education/Training Program; Visit Provider Surgery
PROC: 0DTN4ZG Resection of Sigmoid Colon, Percutaneous Endoscopic Approach, Hand-Assisted (ICD-10-PCS; CPT 44204; principal; 2023-09-10 11:30)
DX: K59.2 Neurogenic bowel, not elsewhere classified (principal); I47.10 Supraventricular tachycardia, unspecified; R15.9 Full incontinence of feces; N31.9 Neuromuscular dysfunction of bladder, unspecified; N20.0 Calculus of kidney; M85.80 Other specified disorders of bone density and structure, unspecified site; G35 Multiple sclerosis; J98.4 Other disorders of lung; G70.9 Myoneural disorder, unspecified; L89.510 Pressure ulcer of right ankle, unstageable; G47.31 Primary central sleep apnea; Z99.3 Dependence on wheelchair; R60.0 Localized edema; R25.2 Cramp and spasm; E66.9 Obesity, unspecified; M79.2 Neuralgia and neuritis, unspecified; R26.2 Difficulty in walking, not elsewhere classified; Z93.51 Cutaneous-vesicostomy status; R13.10 Dysphagia, unspecified; R06.89 Other abnormalities of breathing; I10 Essential (primary) hypertension; Z86.73 Personal history of transient ischemic attack (TIA), and cerebral infarction without residual deficits; Z68.30 Body mass index [BMI] 30.0-30.9, adult
CPT/HCPCS: 44188; 36415; 85025; J0665; J0690; J1100; J1644; J1920; J2001; J2405; J2704; J3010

== ENCOUNTER → 2023-09-13 15:28 | Outpatient (BNVA) | payer MEDICARE, SELFPAY | PROVIDERS: PCP Student in an Organized Health Care Education/Training Program; Referring Provider Student in an Organized Health Care Education/Training Program; Visit Provider Urology | DX: N31.9 Neuromuscular dysfunction of bladder, unspecified (principal); G35 Multiple sclerosis | CPT/HCPCS: 51705 ==

== ENCOUNTER → 2023-09-15 01:41 | Outpatient (CLI) | payer MEDICARE, SELFPAY ==
[2023-09-15] MEDS: Barium Sulfate 40% W/V 240 ML BTL PO (14:10)
--- NOTE | 2023-09-15 14:34 | ST.MBS ---
Date of Service Date of service: 09/15/23 Time of Service: 14:34 Modified Barium Swallow Study Findings: Video fluoroscopic Swallowing Evaluation (VFSE) / Modified Barium Swallow Study (MBSS) Speech Language Pathology Report Patient referred for VFSE/MBSS from Dr. Knight given dysphagia in setting of MS. HPI & Patient report of function: Eva Bonilla is a pleasant 82 yo female with PMH of multiple sclerosis (diagnosed >40 years ago) who was referred for dysphagia evaluation by her neurologist in light of persistent/worsening dysphagia symptoms. Eva was evaluated by RESPIRATORY TECHNICIAN in clinic who recommended MBSS. Primary complaints include pharyngeal stasis for dry foods and pills, and s/sx aspiration with thin liquids. See RESPIRATORY TECHNICIAN evaluation dated 07/01/23 for more details. IMPRESSIONS: Moderate chronic oropharyngeal and pharyngoesophageal dysphagia. Oral phase was characterized by poor lingual control for liquids with posterior loss. Patient appearing with tremulous/delayed A/P transit, though once posterior motion was initiated it was gaffney. Of note, oral-lingual control appeared worse when asked to perform a hold or pause before swallowing (vs naturalistic swallow), but this did improve throughout the course of the study. Pharyngeal phase characterized by poor laryngeal closure during the swallow. Patient aspirated on thin liquids both before the swallow (spillage), and during the swallow. At times with possible micro-aspirations of laryngeal residue after the swallow. Although hyoid excursion initiates in a timely manner, laryngeal elevation appears sluggish and somewhat reduced, resulting in consistent deep laryngeal penetration and intermittent in micro-aspirations. With mildly thick liquids, penetration was not eliminated, however, patient appeared less likely to aspirate on post-swallow residue in the larynx. Pharyngo-esophageal phase was with reduced bolus flow through UES in setting of what appears to be cricopharyngeal hypotension, and resulting at times in mild retrograde flow back into pyriforms for thin liquids. Barium tablet transited the UES with temporary suspension at/above CP prominence but ultimately cleared without need for secondary swallows. Throat clear which was usually successful to clear aspirated or penetrated material, though only intermittently initiated spontaneously, would benefit from use as a trained strategy. Chin tuck appeared to be at least helpful to prevent posterior spillage but did not eliminate penetration/aspiration during the swallow. Patient appears to be at mild-moderate risk for potential aspiration PNA and/or pulmonary compromise and low risk for malnutrition, low risk for dehydration. Swallow prognosis is guarded given: Positive prognostic factors: Motivation, Family/caregiver support, Cognitive status, Negative prognostic factors: Age, Neuro-degenerative factors and pending patient/caregiver training in risk management as outlined, including use of trialed compensatory strategies. Patient appears to be a good candidate for behavioral swallow rehabilitation to focus primarily on education and strategy training. Specialist referrals:? Consider for medical management of CP dysfunction RECOMMENDATIONS: Diet Texture Recommendation:? IDDSI LEVEL SOLIDS 7-Regular Solids with added moisture PRN LIQUIDS 0-Thin Liquids vs 2-Mildly Thick Liquids pending stimulability/carryover with recommended strategies and compensations. Please see further details at?[email or web address] MEDICATIONS Whole or Cut, as able (if large) with 4-Puree Diet texture modification is per patient's preference; please adjust diet textures at patient's discretion & collaboration with care team. Do not alter medications (e.g., cut)? without advice from your MD or pharmacist. Risk Management Strategies:? Behavioral reflux precautions, including upright position during + 90 mins after meals. Small bites, approx [id number] Small sips, approx 10 mL Slight chin tuck with liquids Gentle intermittent throat clear and re-swallow with thin liquids. Multiple swallows per bolus to encourage clearance of pharyngeal stasis/residue Control risk factors for aspiration pneumonia via (a) thorough oral hygiene & (b) maintaining physical mobility as tolerated PLAN: Therapy: Recommend subsequent outpatient session with RESPIRATORY TECHNICIAN to review results of today's exam and develop treatment plan as appropriate. Patient was offered initial strategy recommendations as above and would benefit from follow-up to evaluate percieved effect and review/re-instruction, as well as further education regarding reflux and oral care in light of patient-specific risks. Goals: Defer to treating clinician ----- OBJECTIVE Videofluoroscopic Swallow Evaluation (VFSE/MBSS) was conducted in the lateral projection by Speech-Language Pathologist, in collaboration with Radiologist, to evaluate oropharyngeal swallow function. Anatomic view under fluoroscopy: PO Barium Contrast Trials Oral barium water-soluble contrast was administered as follows: IDDSI Level 0 Varibar thin liquid (40% w/v) IDDSI Level 2 Varibar nectar thick/mildly thick liquid (40% w/v) IDDSI Level 4 Varibar pudding/pureed/extremely thick (40% w/v) IDDSI Level 7 Regular Solid - easy to chew: 1/2 fig amato coated in 3 mL Varibar pudding 13 mm barium tablet taken with Pureed Solids MBSImP Component Scores: COMPONENT Scale SCORE 1 Lip closure (0-4) 0 Resulted in no labial escape 2 Hold Position (0-3) 2 Resulted in posterior escape of less than half of the bolus 3 Bolus Preparation (0-4) 1 Resulted in slow prolonged chewing/mashing with complete re-collection 4 Bolus Transport (0-4) 3 Was with repetitive/disorganized motion of the tongue 5 Oral Residue (0-4) 2 Was a collection on oral structures 6 Swallow Initiation (0-4) 1 Occurred when the bolus head was in valleculae 7 Soft Palate Elevation (0-4) 0 Resulted in no bolus between soft palate and the pharyngeal wall 8 Laryngeal Elevation (0-3) 1 Was decreased with partial superior movement of thyroid cartilage/partial approximation of arytenoids to epiglottic petiole 9 Anterior Hyoid Motion (0-2) 1 Demonstrated partial anterior movement 10 Epiglottic Movement (0-2) 0 Resulted in complete inversion 11 Laryngeal Closure (0-2) 1 Was incomplete with narrow a column of air/contrast in laryngeal vestibule 12 Pharyngeal Stripping Wave (0-2) 0 Was present and complete 13 Pharyngeal Contraction (0-3) NA 14 PES Opening (0-3) 1 Demonstrated partial distension/partial duration, with partial obstruction of flow 15 Tongue Base Retraction (0-4) 1 Allowed a trace column of contrast or air between tongue base and pharyngeal wall 16 Pharyngeal Residue (0-4) 2 Was a collection of residue within or on pharyngeal structures 17 Esophageal Clearance (0-4) NA Results: COMPONENT Scale SCORE 1 Oral Score (0-18) 9 2 Pharyngeal Score (0-29) 6 3 Esophageal Score (0-4) 0 Penetration-Aspiration Scale: COMPONENT Scale SCORE 1 Thin liquid (1-8) 8 Contrast entered the airway, passed below the vocal folds, and no effort was made to eject. 2 [place] thick (1-8) 3 Contrast entered the airway, remained above the vocal folds, and was not ejected from the airway. 3 Honey thick (1-8) NA 4 Pudding thick (1-8) 1 Contrast did not enter the airway 5 Cookie (1-8) 1 Contrast did not enter the airway Trialed Compensatory Strategies & Outcome: Maneuvers Successful (+) Unsuccessful (-) Postures Successful (+) Unsuccessful (-) 3 second Preparatory Set? ?- Chin Tuck Posture? ?+ (posterior spillage) Cough? ? Posterior Head tilt? Reflexive? Cued? Throat Clear? ? Head Tilt to? Reflexive? ?+ x1 ? Left? Cued? ?+ x1 ? Right? ? Saliva swallow? ?+ (cued) Head Turn/Rotate to? ? Supraglottic Swallow? Left? ? Super-supraglottic Swallow? Right? ? Bolus Modifications Successful (+) Unsuccessful (-) Delivery/Alternating Consistencies ? Follow with Liquid Wash ? Follow with Solid Bolus? Delivery/Via Straw? ?+ easier for patient to control sip size Reduced Volume? ?+ Reduced Rate of Intake? ? Increased Viscosity? ?+ (post-swallow asp. of residue) Other:?? ? Thank you for allowing us to take part in this patient's care. Please feel free to contact the [facility] Speech Language Pathology Department with any questions/concerns.
--- NOTE | 2023-09-15 15:17 | DI.RAD_ITS ---
Exam(s) RF MODIFIED SPEECH BA SWALLOW TECHNIQUE: Modified barium swallow was performed in conjunction with speech pathology. CONTRAST MATERIAL: Multiple consistencies of oral barium contrast were administered. COMPARISON: No exams were available for comparison FINDINGS: Note that this is not a dedicated esophagram, distal esophagus not evaluated. Laryngeal penetration was observed thin consistency barium. No significant residue in the vallecular or piriform sinuses. Speech pathology report to follow. IMPRESSION: Laryngeal penetration with thin barium. Please see full speech pathology report. RADIATION DOSE DELIVERED: jo ann Gilliland=4.95 mGy
[2023-09-15] MEDS: Barium Sulfate 700 MG TAB PO (15:30)
[2023-09-15] MEDS: Barium Sulfate 81% w/w for Oral Suspension 148 GM BTL PO (15:31)
[2023-09-15] MEDS: Barium Sulfate Oral Paste 40% W/V 230 ML TUBE PO (15:31)
== END ==
PROVIDERS: PCP Student in an Organized Health Care Education/Training Program; Visit Provider Psychiatry & Neurology Neurology
DX: R13.14 Dysphagia, pharyngoesophageal phase (principal); R13.12 Dysphagia, oropharyngeal phase
CPT/HCPCS: 92526; 92611; 74221

== ENCOUNTER → 2023-09-30 10:50 | Outpatient (BNVA) | payer MEDICARE, SELFPAY | PROVIDERS: PCP Student in an Organized Health Care Education/Training Program; Referring Provider Student in an Organized Health Care Education/Training Program; Visit Provider Surgery | DX: Z48.815 Encounter for surgical aftercare following surgery on the digestive system (principal); Z43.3 Encounter for attention to colostomy ==

== ENCOUNTER → 2023-10-07 14:30 | Outpatient (BNVA) | payer MEDICARE, SELFPAY | PROVIDERS: PCP Student in an Organized Health Care Education/Training Program; Visit Provider Nurse Practitioner Gerontology | DX: Z46.6 Encounter for fitting and adjustment of urinary device (principal); G35 Multiple sclerosis; N31.9 Neuromuscular dysfunction of bladder, unspecified | CPT/HCPCS: 51705 ==

== ENCOUNTER → 2023-10-27 13:58 | Outpatient (BNVA) | payer MEDICARE, SELFPAY | PROVIDERS: PCP Student in an Organized Health Care Education/Training Program; Referring Provider Student in an Organized Health Care Education/Training Program; Visit Provider Nurse Practitioner Gerontology | DX: Z46.6 Encounter for fitting and adjustment of urinary device (principal); N31.9 Neuromuscular dysfunction of bladder, unspecified; G35 Multiple sclerosis | CPT/HCPCS: 51705 ==

== ENCOUNTER → 2023-11-03 10:34 | Outpatient (BNVA) | payer MEDICARE, SELFPAY | PROVIDERS: PCP Student in an Organized Health Care Education/Training Program; Referring Provider Student in an Organized Health Care Education/Training Program; Visit Provider Psychiatry & Neurology Neurology | DX: G35 Multiple sclerosis (principal); N31.9 Neuromuscular dysfunction of bladder, unspecified; M79.2 Neuralgia and neuritis, unspecified; R25.2 Cramp and spasm; R13.10 Dysphagia, unspecified | CPT/HCPCS: 99213 ==

== ENCOUNTER → 2023-11-17 13:14 | Outpatient (BNVA) | payer MEDICARE, SELFPAY | PROVIDERS: PCP Student in an Organized Health Care Education/Training Program; Visit Provider Nurse Practitioner Gerontology | DX: Z46.6 Encounter for fitting and adjustment of urinary device (principal); N31.9 Neuromuscular dysfunction of bladder, unspecified; G35 Multiple sclerosis | CPT/HCPCS: 51705 ==

== ENCOUNTER → 2023-12-07 10:39 | Outpatient (BNVA) | payer MEDICARE, SELFPAY | PROVIDERS: PCP Student in an Organized Health Care Education/Training Program; Referring Provider Student in an Organized Health Care Education/Training Program; Visit Provider Nurse Practitioner Gerontology | DX: Z46.6 Encounter for fitting and adjustment of urinary device (principal); G35 Multiple sclerosis; N31.9 Neuromuscular dysfunction of bladder, unspecified | CPT/HCPCS: 51705 ==

== ENCOUNTER 2023-12-09 01:15 | Outpatient (CLI) | payer MEDICARE, SELFPAY ==
[2023-12-09 10:45] LABS: ALT 14 U/L (14-59); AST 15 U/L (15-37); Albumin 3.6 g/dL (3.4-5.0); Alkaline Phosphatase 121 U/L (46-116); Anion Gap 5.6 mmol/L (3-11); BUN 10 mg/dL (7-18); Bilirubin, Total 0.4 mg/dL (0.2-1.0); CO2 34.4 mmol/L (21.0-32.0); CREATININE 0.7 mg/dL (0.55-1.02); Calcium 9.3 mg/dL (8.5-10.1); Calculated LDL 136 mg/dL (<100); Chloride 105 mmol/L (98-107); Cholesterol 239 mg/dL (<200); Estimated GFR 85.76 (mL/min/1.73m2); Glucose 84 mg/dL (74-106); HDL Cholesterol 81 mg/dL (40-60); Magnesium 2.1 mg/dL (1.8-2.4); Potassium 3.9 mmol/L (3.5-5.1); Sodium 145 mmol/L (136-145); Total Protein 7.2 g/dL (6.4-8.2); Triglyceride 114 mg/dL (<150)
== END 2023-12-09 01:16 | disposition home or self-care (01) ==
LOC: LBO 01:15
PROVIDERS: Absent Provider Student in an Organized Health Care Education/Training Program; PCP Student in an Organized Health Care Education/Training Program; Referring Provider Student in an Organized Health Care Education/Training Program; Visit Provider Student in an Organized Health Care Education/Training Program
DX: I10 Essential (primary) hypertension (principal); Z13.220 Encounter for screening for lipoid disorders; N20.0 Calculus of kidney; Z91.89 Other specified personal risk factors, not elsewhere classified
CPT/HCPCS: 36415; 80053; 80061; 83735

== ENCOUNTER → 2024-02-22 12:26 | Outpatient (BNVA) | payer MEDICARE, SELFPAY | PROVIDERS: PCP Student in an Organized Health Care Education/Training Program; Referring Provider Student in an Organized Health Care Education/Training Program; Visit Provider Psychiatry & Neurology Neurology | DX: G35 Multiple sclerosis (principal); R41.3 Other amnesia; N31.9 Neuromuscular dysfunction of bladder, unspecified; M79.2 Neuralgia and neuritis, unspecified; R25.2 Cramp and spasm; R13.10 Dysphagia, unspecified | CPT/HCPCS: 99215 ==

== ENCOUNTER 2024-02-22 13:59 | Outpatient (CLI) | payer MEDICARE, SELFPAY ==
[2024-02-22 15:07] LABS: TSH (W/Ref FT4) 0.56 uIU/mL (0.36-3.74)
[2024-02-22 15:09] LABS: Vitamin B12 > 2000 pg/mL (193-986)
[2024-02-22 22:39] LABS: FREE T4 0.88 ng/dL (0.76-1.46)
== END 2024-02-22 14:00 | disposition home or self-care (01) ==
LOC: LBO 14:04
PROVIDERS: PCP Student in an Organized Health Care Education/Training Program; Visit Provider Psychiatry & Neurology Neurology
DX: G62.9 Polyneuropathy, unspecified (principal); R41.3 Other amnesia; R79.89 Other specified abnormal findings of blood chemistry
CPT/HCPCS: 36415; 99215; 82607; 84439; 84443

== ENCOUNTER 2024-04-13 02:23 | Outpatient (CLI) | payer MEDICARE, SELFPAY ==
--- NOTE | 2024-04-13 08:45 | DI.MRI_ITS ---
Exam(s) MR BRAIN WO EXAM: MR BRAIN WO CLINICAL HISTORY: NEW MEMORY LOSS,MULTIPLE SCLEROSIS,G35.0,R41.3 TECHNIQUE: Multiplanar multisequence MRI of the brain was performed. COMPARISON: CT CT HEAD - STROKE PROTOCOL from 05/11/2018 FINDINGS: VENTRICLES AND EXTRA AXIAL SPACES: Normal in size and morphology for the patient's age. MIDLINE SHIFT: None. CEREBRAL PARENCHYMA: No focus of restricted diffusion to suggest acute infarct. No space-occupying le celena identified. Mild atrophy consistent with the patient's age. High signal lesions adjacent to the lateral ventricles in a pattern in keeping with multiple sclerosis. There are few other scattered h igh signal foci in the white matter not directly adjacent to the ventricles. HEMORRHAGE: None. BRAINSTEM/CEREBELLUM: Normal. VISUALIZED PARANASAL SINUSES/MASTOIDS:Clear. Vasculature: Normal flow void. PITUITARY GLAND: Unremarkable. ORBITS: Unremarkable. IMPRESSION: Periventricular white matter lesions suspicious for multiple sclerosis. DATA REPOSITORY:
== END 2024-04-13 02:43 ==
LOC: DI 02:23
PROVIDERS: PCP Student in an Organized Health Care Education/Training Program; Visit Provider Psychiatry & Neurology Neurology
DX: R41.3 Other amnesia (principal); G35 Multiple sclerosis
CPT/HCPCS: 70551

== ENCOUNTER → 2024-05-03 12:26 | Outpatient (BNVA) | payer MEDICARE, SELFPAY | PROVIDERS: PCP Student in an Organized Health Care Education/Training Program; Visit Provider Psychiatry & Neurology Neurology | DX: G35 Multiple sclerosis (principal); M79.2 Neuralgia and neuritis, unspecified; R25.2 Cramp and spasm; R13.10 Dysphagia, unspecified; R41.3 Other amnesia; N31.9 Neuromuscular dysfunction of bladder, unspecified | CPT/HCPCS: 99213 ==

== ENCOUNTER 2024-05-06 19:54 | Emergency (ER) | payer MEDICARE, SELFPAY ==
[2024-05-06 19:56] VITALS: BP 150/78; PULSE 80; RESP 14; TEMP 36.6; O2SAT 96
--- NOTE | 2024-05-06 20:13 | W.ED.GENAD ---
Discharge Plan Disposition Patient Disposition: Home Discharge Details Clinical Impression: Colitis, Hypokalemia Primary Care Provider: Opal Dejesus ED Provider: Sonja Mcdowell Home Meds and New Rx's Prescriptions: New potassium chloride 40 mEq/15 mL liquid 20 meq PO DAILY Qty: 473 0RF amoxicillin-pot clavulanate 400-57 mg/5 mL suspension for reconstitution 10.75 ml PO BID 7 Days Qty: 150.5 0RF Continued (DME) sheepskin booties See Rx Instructions .Route .MEDSUPPLY Qty: 1 1RF Rx Instructions: SHeepskin booties to help heal and prevent pressure ulcers, b/l (but rt >>l) (DME) Motorized Wheelchair See Rx Instructions .Route .MEDSUPPLY Qty: 1 0RF Rx Instructions: For daily use (DME) Adjustable Hospital Bed See Rx Instructions .Route .MEDSUPPLY Qty: 1 0RF Rx Instructions: As directed (DME) Trapeze See Rx Instructions .Route .MEDSUPPLY Qty: 1 1RF Rx Instructions: Daily, Overnight Use baclofen 20 mg tablet 30 mg PO TID Qty: 405 3RF duloxetine 20 mg capsule,delayed release(DR/EC) 20 mg PO BID Qty: 180 3RF pravastatin 20 mg tablet 20 mg PO HS Qty: 90 4RF furosemide 20 mg tablet 20 mg PO BID Qty: 180 3RF mirabegron [Myrbetriq] 50 mg tablet extended release 24 hr 50 mg PO DAILY Qty: 90 3RF docusate sodium [Colace] 100 mg capsule 100 mg PO DAILY aspirin 325 mg Tablet 325 mg PO DAILY Discharge Instructions Additional Instructions: Please call [facility] first thing Wednesday morning to schedule a repeat blood draw on Wednesday/Wednesday to recheck your potassium level. I recommend that you follow-up with general surgery early in the week to have your stoma rechecked and to discuss your visit today. I have prescribed an antibiotic called Augmentin. Please take the full course as prescribed. I recommend the use of potassium supplementation. Your potassium is likely low due to your furosemide, though it may be due to increased gastric losses. Return to emergency care if you develop worsening bleeding from your ostomy, decreased p.o. intake/vomiting, abdominal pains, new fevers, or if you are very concerned and need to be rechecked again immediately Referrals: [facility] [Provider Group] HPI General Date/Time Provider Initiated Documentation: 05/06/24 20:03. HPI Narrative: Eva is a 83-year-old female with history of MS, neurogenic bowel/bladder, and HTN who presents to the emergency department for evaluation of blood in ostomy bag. Granddaughter reports that she noticed some increased mucousy discharge from the ostomy tonight when she changed the bag with pinkish liquid output. Her stools have been more watery lately, but she has never had blood in them. Ostomy was performed in September of this year. Denies associated fever/chills, change in p.o. intake, nausea/vomiting, abdominal pain, change in Mcbride output. She has had colonoscopies in the past, says that they were unremarkable. Physical exam very reassuring. Eva is well-appearing, in no acute distress. Ostomy appears healthy. Scant amount of pinkish mucus/liquid output noted in ostomy bag. Abdomen is soft, nondistended, nontender to palpation with no rigidity or guarding. Normoactive bowel sounds. DDx includes but is not limited to: Lower GI bleed, diverticulitis, ostomy irritation, other intra-abdominal process I independently interpreted the following tests: CBC reassuring. CMP notable for hypokalemia, potassium 3.0. CT abdomen/pelvis performed. As patient has a history of iodine allergy and does not know if she is ever tolerated IV contrast, noncontrast CT obtained. CT significant for apparent mural wall thickening through the distal ostomy segment subadjacent to the skin surface with adjacent hazy fat stranding and surrounding skin thickening, probable short segment colitis ostomy segment. There is no evidence of surrounding cellulitis, confirmed this with granddaughter who provides care for ostomy and changed bag today. Will treat with Augmentin and potassium supplementation for colitis and hypokalemia. Advised follow-up with general surgery for reevaluation, as well as repeat blood draw to recheck potassium level. Educated on red flags indicating need for return to emergency care. Related Data Home Medications ?Medication ?Instructions ?Recorded ?Confirmed aspirin 325 mg tablet 325 mg PO DAILY 12/17/22 05/06/24 sheepryanin mirella #1 ea 09/16/23 05/06/24 furosemide 20 mg tablet 20 mg PO BID #180 tabs 09/24/23 05/06/24 docusate sodium 100 mg capsule 100 mg PO DAILY 10/28/23 05/06/24 (Colace) Adjustable Hospital Bed #1 ea 11/03/23 05/06/24 Motorized Wheelchair #1 ea 11/03/23 05/06/24 Trapeze #1 ea 11/03/23 05/06/24 mirabegron 50 mg tablet,extended 50 mg PO DAILY #90 tabs 02/28/24 05/06/24 release 24 hr (Myrbetriq) baclofen 20 mg tablet 30 mg (1.5 x 20 mg) PO TID #405 05/03/24 05/06/24 tabs duloxetine 20 mg capsule,delayed 20 mg PO BID #180 caps 05/03/24 05/06/24 release pravastatin 20 mg tablet 20 mg PO HS #90 tabs 05/03/24 05/06/24 amoxicillin 400 mg-potassium 10.75 ml PO BID 7 days #150.5 mL 05/06/24 clavulanate 57 mg/5 mL oral suspension potassium chloride 40 mEq/15 mL 20 meq (7.5 mL) PO DAILY #473 mL 05/06/24 oral liquid Previous Rx's ?Medication ?Instructions ?Recorded rajani bootihailey #1 ea 09/16/23 furosemide 20 mg tablet 20 mg PO BID #180 tabs 09/24/23 Adjustable Hospital Bed #1 ea 11/03/23 Motorized Wheelchair #1 ea 11/03/23 Trapeze #1 ea 11/03/23 mirabegron 50 mg tablet,extended 50 mg PO DAILY #90 tabs 02/28/24 release 24 hr (Myrbetriq) baclofen 20 mg tablet 30 mg (1.5 x 20 mg) PO TID #405 05/03/24 tabs duloxetine 20 mg capsule,delayed 20 mg PO BID #180 caps 05/03/24 release pravastatin 20 mg tablet 20 mg PO HS #90 tabs 05/03/24 amoxicillin 400 mg-potassium 10.75 ml PO BID 7 days #150.5 mL 05/06/24 clavulanate 57 mg/5 mL oral suspension potassium chloride 40 mEq/15 mL 20 meq (7.5 mL) PO DAILY #473 mL 05/06/24 oral liquid Allergies Allergy/AdvReac Type Severity Reaction Status Date / Time lisinopril AdvReac Severe cough/wheez Verified 05/06/24 20:01 ing Iodine and Iodide Containing AdvReac Intermediate redness Verified 05/06/24 20:01 Produc pregabalin (From Lyrica) AdvReac whoosy Verified 05/06/24 20:01 reported 04/2017 iodine Allergy Skin Rash Uncoded 05/06/24 20:01 General Stated Complaint: Abd Prob XANDER: 3 Review of Systems Narrative: see HPI Exam Const General: cooperative, healthy appearing, comfortable, no acute distress, well developed and well groomed Nutritional Appearance: average body habitus Orientation: alert and oriented x3 Resp Effort & Inspection: normal respiratory effort and able to speak in complete sentences GI Inspection: normal to inspection, no abdominal wall ecchymosis, non-distended and other (healthy appearing ostomy) Palpation: soft, not firm, not rigid and nontender Auscultation: normal bowel sounds Skin General skin exam: no rashes or lesions noted Trauma: no lacerations or abrasions Course Vital Signs Vital signs: Vital Signs Temperature 36.6 C 05/06/24 19:56 Pulse 80 05/06/24 19:56 Respiratory Rate 14 05/06/24 19:56 Blood Pressure 150/78 H 05/06/24 19:56 Pulse Oximetry 96 05/06/24 19:56 Temperature 36.6 C 05/06/24 19:56 Temperature Source Oral 05/06/24 19:56 Pulse 80 05/06/24 19:56 Respiratory Rate 14 05/06/24 19:56 Blood Pressure 150/78 H 05/06/24 19:56 Blood Pressure Position Sitting 05/06/24 19:56 Pulse Oximetry 96 05/06/24 19:56 Oxygen Delivery Method Room Air 05/06/24 19:56 Oxygen Flow Rate 0 05/06/24 19:56 Pain Level 0 05/06/24 19:56 Medical Decision Making Quality:SDOH Health Related Social Needs: No Data to Display PFSH All Active Problems (Updated 05/06/24 @ 22:59 by Sonja Aguilar) Colitis (Acute) Hypokalemia (Acute) Health nursing home, active care coordination (Acute) 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 Stoiber Neurogenic bowel (Acute) Pressure ulcer of ankle (Acute) stage 3 Pre-ulcerative corn or callous (Acute) rt outer toe Injury of nail bed of toe (Acute) Recurring, black, sensitive with Hx injury in childhood . Hx lost toe nail++ Colostomy care (Acute) Dysphagia (Acute) Advanced care planning/counseling discussion (Acute) Wheelchair dependent (Acute) Grieving (Chronic) Osteopenia of spine (Acute) per DEXA (2014, 2008) .. Medicare needs the M85.88 (vs just the M85.80) Central sleep apnea (Acute) Mixed sleep apnea (Acute) Hypercapnia with mixed acid-base disorder (Acute) Neck muscle strain (Acute) Rt, possible SCM mm spasm, [ ] PT Claw hand of right upper extremity (Acute) Trigger finger, left middle finger (Acute) Trigger thumb, left thumb (Acute) Right-sided muscle weakness (Acute) Hx MS with R>L effected more ... Active daily, with chores, stretching, hobbies.. [ ] band/weight work? Metacarpophalangeal joint pain (Chronic) Joint space narrowing, subchondral sclerosis, periarticular spurring per XR (04/01/21) Hand pain (Acute) lft swelling, rt pinky contracted.. [ ] PT, Naproxen Injury of little finger (Acute) Pain of left middle finger (Acute) Leg pain, bilateral (Acute) Aches, cramps (joel horses, L>R), weakness ... presuming 2' MS, but appreciate re-evaluation. 03/2021 Spasticity (Acute) Leg edema (Chronic 09/2018) Hx LE edema, but exercise and elevation had managed most of the swelling. Recent worsening seems 2' lack of exercise (due to offloading of sacral/buttock wound) and serious nephrolith. Swelling may be compounded by kidney infection, bleed and ABx. Responding well to 40mg --> manage with lasix and monitor Cr/K for now. 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 10/19/18, ik Significantly better after stopping gabapentin 11/2018. Osteopenia (Acute 10/11/14) left hip T score -1.5 Nonsustained paroxysmal supraventricular tachycardia (Acute) Nephrolithiasis (Acute) D/C from [facility] [place], s/p renal Found on U/S, post UTI .. hospitalized 05/13/[address] .. [address] Cancino. CT completed to reveal right stone burdern. Neurogenic bladder (Chronic) due to multiple sclerosis; requires suprapubic catheter Note: [facility] sugggests staying at newly placed 18FR catheter. 10/05/18, ik Hypertension (Chronic) 09/12/2007, well-managed, 05/2018, ik Multiple sclerosis (Chronic) 08/01/[address] (Chronic) Sees UROL q 6-8 weeks. Medical History Memory loss Palliative care encounter Right shoulder injury Pulled mm during transfer (?) H/O squamous cell carcinoma 10/21/21 Dr Catarino Menjivar C&D of L forehead lesion TIA (transient ischemic attack) (08/2018) CT (NEG) Tingling face, numb in left arm... Obesity (BMI 30.0-34.9) Wound of right buttock (04/09/17) managed by wound service [facility], following punch biopsy for wart 11/30/16 Dr Toribio. veruca vulgaris 09/09/17 wound still managed by [facility]. 09/23/17 non healing right ischia wound. HH providing in home care 01/12/18 [place] [facility]. still managed there. has home health to do drsg changes q3 days and prn. next wound f/[place] [facility]-new R groin wound that communicates w/original 11/2016 wound-sent to Plastics to schedule I&D 03/18/18 [facility] - Continued right groin wound. Cont dressing. Scheduled for I&D Dr. Gutierrez 03/23/18. 03/23/18: [facility] OR for I and D. Has Home health. doing drsg changes Q 3days/prn [place] [facility] [place]/18) next f/u ov there 04/13/18. Neuropathic pain (11/04/16) left leg, great toe to hip; gabapentin caused excessive edema Benign neoplasm of colon (11/10/11) Sepsis Ambulatory dysfunction Toxic metabolic encephalopathy Non-pressure chronic ulcer of buttock with fat layer exposed 04/27/18 [facility] Last OV 11/16/18. RTC 7-10days Non-pressure chronic ulcer of right lower leg with fat layer exposed 04/27/18 [facility] Wart removal 2016. Ischial/groin I&D 03/23/18 after 2 wounds were found to communicate with each other. Packing was found in wounds. whicch is ? to be the reason for non-healing Tubular adenoma 08/02/2005 Surgical History S/P colectomy (~09/2023) Lap sigmoid 09/10/23 S/P cataract extraction Suprapubic catheter and vaginal sling 2011 S/P ureteral stent placement (09/16/18) Cervical rib s/p excision 1973 Hx of colonoscopy with polypectomy incision and drainage (03/23/18) [facility]-wound debridement of chronic ischial/groin wound after wart removal; 11/2016. Family History Mother , CHF at age 87. 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
[2024-05-06 20:19] VITALS: BP 150/78; PULSE 80; RESP 14; TEMP 36.6; O2SAT 96
[2024-05-06 20:44] LABS: Abs Immature Grans 0.02 10^3/uL (0.0-0.06); Absolute Basophil Count 0.05 10^3/uL (0.0-0.2); Absolute Eosinophil Count 0.32 10^3/uL (0.0-0.7); Absolute Lymphocyte Count 1.78 10^3/uL (1.2-3.4); Basophils % 0.7 %; Eosinophils % 4.5 %; HCT 41.1 % (36.0-46.0); HGB 13.3 g/dL (11.2-15.7); Immature Grans % 0.3 %; Lymphocytes % 24.8 %; MCH 30.4 pg (27.0-33.0); MCHC 32.4 % (32.0-36.0); MCV 94 fL (80-95); Monocytes % 5.6 %; Neutrophils % 64.1 %; RBC 4.38 10^6/uL (3.93-5.22); RDW 13.4 % (11.7-14.6); WBC 7.17 10^3/uL (4.4-10.8)
--- NOTE | 2024-05-06 20:54 | DI.CT_ITS ---
Exam(s) CT ABDOMEN PELVIS WO EXAM: CT ABDOMEN PELVIS WO CLINICAL HISTORY: blood in ostomy. TECHNIQUE: Imaging Protocol: Axial computed tomography images with coronal and sagittal reformatted images were created and reviewed. Oral: no COMPARISON: CT CT ABDOMEN PELVIS W from 12/17/2022 FINDINGS: Lung Bases: No acute findings. Liver: Normal density. No suspicious mass. Gallbladder and biliary tract: Status post cholecystectomy. No biliary dilation. Pancreas: Normal density. No abnormal calcifications or inflammatory process. Spleen: Normal. Kidneys: Normal size, contour and axis. 3 millimeter nonobstructing stone right kidney. Mild right r enal cortical scarring. No obstructive uropathy. No suspicious masses seen. Adrenal glands: No masses seen. Lymph nodes: Within normal limits. Vasculature: Abdominal aorta non-dilated. Soft tissues: Left lower quadrant colostomy. Bladder: Suprapubic catheter decompressing the urinary bladder. No wall thickening. No mass or calcu li. Bowel: Left lower quadrant ostomy. Inflammation around the distal ostomy near the skin surface. No fluid collection or abscess.. Mild sigmoid diverticulosis. No obstruction or bowel wall thickening. Appendix not visualized. Peritoneal cavity: No ascites. No focal collection. No mesenteric inflammatory response. Reproductive organs: Status post hysterectomy. Bones: Transitional type vertebral body at L5. Degenerative disc changes at L 5. IMPRESSION: Inflammation around colostomy. No evidence of abscess. RADIATION DOSE DELIVERED: Total DLP DATA REPOSITORY: All CT scans at this facility are submitted to the National Radiology Data Registry (NRDR) Dose Index Registry (DIR) with the [employer] (ACR). RADIATION OPTIMIZATION: All CT scans at this facility use at least one of these dose optimization te chniques: automated exposure control; mA and/or kV adjustment per patient size (includes targeted exa ms where dose is matched to clinical indication); or iterative reconstruction.
[2024-05-06 21:38] LABS: Prothrombin Time 9.9 sec (9.1-11.1)
[2024-05-06 21:44] LABS: ALT 11 U/L (14-59); AST 11 U/L (15-37); Albumin 2.9 g/dL (3.4-5.0); Alkaline Phosphatase 120 U/L (46-116); Anion Gap 7.2 mmol/L (3-11); BUN 13 mg/dL (7-18); Bilirubin, Total 0.27 mg/dL (0.2-1.0); CO2 30.8 mmol/L (21.0-32.0); CREATININE 0.7 mg/dL (0.55-1.02); Calcium 8.8 mg/dL (8.5-10.1); Chloride 105 mmol/L (98-107); Estimated GFR 85.76 (mL/min/1.73m2); Glucose 145 mg/dL (74-106); Sodium 143 mmol/L (136-145); Total Protein 6.7 g/dL (6.4-8.2)
[2024-05-06 22:03] VITALS: BP 125/59; PULSE 77; RESP 16; TEMP 37; O2SAT 97
[2024-05-06] MEDS: Potassium Bicarbonate/Cit AC 25 MEQ TABLET.EFF PO (22:22)
--- NOTE | 2024-05-06 22:38 | DI.VRAD_ITS ---
PROCEDURE INFORMATION: Exam: CT Abdomen And Pelvis Without Contrast Exam date and time: 05/06/2024 8:47 PM Age: 83 years old Clinical indication: Other: Blood in ostomy TECHNIQUE: Imaging protocol: Computed tomography of the abdomen and pelvis without contrast. COMPARISON: CT ABDOMEN PELVIS W 12/17/2022 11:53 AM FINDINGS: Lungs: Lung bases clear. Liver: Normal appearing liver. Gallbladder and biliary ducts: Prior cholecystectomy with postop biliary dilatation. Pancreas: Grossly unremarkable unenhanced pancreas. Spleen: Grossly unremarkable unenhanced spleen. Adrenal glands: Normal appearing adrenal glands. Kidneys and ureters: 3 mm nonobstructing right renal calculus. Renal cortical scarring noted on the right. No obstructing ureteral stones, hydronephrosis, or evidence of recent stone passage. Stomach and bowel: No oral contrast. Stomach partially decompressed. No small bowel dilatation to suggest obstruction. Cecum located in the right mid abdomen suggesting free mobility on an independent mesentery. Prior segmental resection from the descending colon with a left-sided colostomy and a long colorectal pouch. Apparent mural thickening through the distal ostomy segment subjacent to the skin surface with adjacent hazy fat stranding and surrounding skin thickening. No frankly organized drainable subcutaneous abscess or subcutaneous soft tissue gas. No evidence of diverticulitis or colitis. Scattered sigmoid diverticula noted. Appendix: Appendix not identified, obscured if present. Correlation with surgical history recommended. Intraperitoneal space: No gross ascites or free air. Vasculature: Normal caliber abdominal aorta. Lymph nodes: No pathologically enlarged mesenteric, retroperitoneal, or pelvic sidewall lymph nodes. Urinary bladder: Urinary bladder largely collapsed around a suprapubic bladder catheter. Reproductive: Prior hysterectomy. Ovaries not identified, obscured if present. Correlation with surgical history recommended. Bones/joints: No acute fracture seen among the bones of the abdomen or pelvis. Spinal degenerative change with anterior osteophytes and facet arthrosis at multiple levels. Given 5 lumbar vertebral bodies, transitional L5 vertebral morphology, bilaterally sacralized with only a small rudimentary L5-S1 disc. Please note that vertebral body numbering is not definitive in the absence of complete spinal visualization. Given this numbering system, prominent discogenic degeneration at L4-L5 with a vacuum disc deformity. Soft tissues: Tiny fat-containing ventral hernia at the umbilicus, doubtful clinical significance. IMPRESSION: 1. Prior segmental resection from the descending colon with a left-sided colostomy and a long colorectal pouch. 2. Apparent mural thickening through the distal ostomy segment subjacent to the skin surface with adjacent hazy fat stranding and surrounding skin thickening. The etiology of this appearance is uncertain; however, short-segment colitis of the ostomy segment and/or surrounding acute cellulitis could produce this appearance. Clinical correlation is recommended. No frankly organized drainable subcutaneous abscess or subcutaneous soft tissue gas. 3. No evidence of diverticulitis or colitis. Dictated and Authenticated by: Angel Conner MD. Ordering:YUMI Casillas MD
[2024-05-06] MEDS: Amoxicillin 400 MG/Clav. 57 MG 100 ML BTL 10.75 ML PO (23:20)
== END 2024-05-06 23:22 | disposition home or self-care (01) ==
PROVIDERS: Emergency Provider Nurse Practitioner Family; PCP Student in an Organized Health Care Education/Training Program
DX: K52.9 Noninfective gastroenteritis and colitis, unspecified (principal); E87.6 Hypokalemia; K59.2 Neurogenic bowel, not elsewhere classified; N31.9 Neuromuscular dysfunction of bladder, unspecified; I10 Essential (primary) hypertension; G35 Multiple sclerosis; Z86.73 Personal history of transient ischemic attack (TIA), and cerebral infarction without residual deficits; Z99.3 Dependence on wheelchair; Z96.0 Presence of urogenital implants
CPT/HCPCS: 80053; 99284; 74176; 85025; 85610

== ENCOUNTER 2024-05-09 14:36 | Outpatient (REF) | payer MEDICARE, SELFPAY ==
[2024-05-09 17:02] LABS: Potassium 4.1 mmol/L (3.5-5.1)
== END 2024-05-09 14:37 | disposition home or self-care (01) ==
LOC: LBN 14:36
PROVIDERS: PCP Student in an Organized Health Care Education/Training Program; Visit Provider Nurse Practitioner Adult Health
DX: E87.6 Hypokalemia (principal)
CPT/HCPCS: 84132

== ENCOUNTER → 2024-05-11 14:50 | Outpatient (BNVA) | payer MEDICARE, SELFPAY | PROVIDERS: PCP Student in an Organized Health Care Education/Training Program; Referring Provider Student in an Organized Health Care Education/Training Program; Visit Provider Surgery | DX: K52.9 Noninfective gastroenteritis and colitis, unspecified (principal); K59.2 Neurogenic bowel, not elsewhere classified; I10 Essential (primary) hypertension; Z93.3 Colostomy status; N31.9 Neuromuscular dysfunction of bladder, unspecified; G47.31 Primary central sleep apnea | CPT/HCPCS: 99213 ==

== ENCOUNTER → 2024-06-27 11:08 | Outpatient (BNVA) | payer MEDICARE, SELFPAY | PROVIDERS: PCP Student in an Organized Health Care Education/Training Program; Referring Provider Student in an Organized Health Care Education/Training Program; Visit Provider Physical Therapy Assistant | DX: S91.001D Unspecified open wound, right ankle, subsequent encounter (principal); X58.XXXD Exposure to other specified factors, subsequent encounter | CPT/HCPCS: 99214 ==

== ENCOUNTER → 2024-07-17 12:45 | Outpatient (BNVA) | payer MEDICARE, SELFPAY | PROVIDERS: PCP Student in an Organized Health Care Education/Training Program; Referring Provider Student in an Organized Health Care Education/Training Program; Visit Provider Urology | DX: R32 Unspecified urinary incontinence (principal); N31.9 Neuromuscular dysfunction of bladder, unspecified | CPT/HCPCS: 99443 ==

== ENCOUNTER 2024-07-20 07:18 | Day surgery (SDC) | payer MEDICARE, SELFPAY ==
[2024-07-20 07:31] VITALS: BP 116/74; PULSE 70; RESP 18; TEMP 36.7; O2SAT 96
[2024-07-20] MEDS: Normal Saline 1,000 ML 80 ML IV (07:57)
--- NOTE | 2024-07-20 08:13 | ANES.PREOP_ITS ---
General Info Date of Service Date Performed: 07/20/24 Height: 5 ft 2 in Weight: 68.039 kg Body Mass Index (BMI): 27.4 Surgical Procedure: Operation Date: 07/20/24 09:10 Proposed Procedure Side Surgeon p Cystoscopy/Transurethral Injection of Botox & Coaptite Jose Martin Cancino MD Meds Allergies and Home Medications Allergies Allergy/AdvReac Type Severity Reaction Status Date / Time lisinopril AdvReac Severe cough/wheez Verified 07/20/24 07:28 ing Iodine and Iodide Containing AdvReac Intermediate redness Verified 07/20/24 07:28 Produc pregabalin (From Lyrica) AdvReac whoosy Verified 07/20/24 07:28 reported 04/2017 iodine Allergy Skin Rash Uncoded 07/20/24 07:28 Home Medication ?Medication ?Instructions ?Recorded aspirin 325 mg tablet 325 mg PO DAILY 12/17/22 sheepskin booties #1 ea 09/16/23 docusate sodium 100 mg capsule 100 mg PO DAILY 10/28/23 (Colace) Adjustable Hospital Bed #1 ea 11/03/23 Motorized Wheelchair #1 ea 11/03/23 Trapeze #1 ea 11/03/23 baclofen 20 mg tablet 30 mg (1.5 x 20 mg) PO TID #405 05/03/24 tabs duloxetine 20 mg capsule,delayed 20 mg PO BID #180 caps 05/03/24 release pravastatin 20 mg tablet 20 mg PO HS #90 tabs 05/03/24 mirabegron 50 mg tablet,extended 50 mg PO DAILY #5 tabs 06/07/24 release 24 hr (Myrbetriq) Air Mattress #1 ea 06/21/24 furosemide 20 mg tablet 20 mg PO BID #180 tabs 07/18/24 Current Visit Medications: Current Medications Generic Name Dose Route Start Last Admin Trade Name Freq PRN Reason Stop Dose Admin OnabotulinumtoxinA 200 units/ 0 units 07/20/24 06:00 Sodium Chloride 20 ml IJ 07/20/24 23:59 PREOP [place] Ceftriaxone Sodium/Dextrose 1 gm in 50 mls @ 100 mls/hr 07/20/24 06:00 Rocephin IVPB 07/20/24 23:59 PREOP [place] Sodium Chloride 1,000 mls @ 80 mls/hr 07/20/24 07:15 07/20/24 07:57 Saline 1000ml Bag IV 08/19/24 07:14 80 mls/hr INFUSION AUG[place]A Administration IV Miscellaneous Supplies 1 each 07/20/24 06:00 Iv Access IV 07/20/24 23:59 DIRECTED [place] Sodium Chloride 0 ml 07/20/24 06:00 Normal Saline Flush 10 Ml Syr IV 07/20/24 23:59 PRN PRN Sodium Chloride 0 ml 07/20/24 06:00 Normal Saline 10 Ml Vial IJ 07/20/24 23:59 DIRECTED PRN Sterile Water 0 ml 07/20/24 06:00 Water,Injection,Sterile 10 Ml Vial IJ 07/20/24 23:59 DIRECTED PRN PFSH Active Problems Active Problems: Problem Status Onset Code Incontinence in female Acute R32 Wound of buttock Acute S31.809A At risk for impaired skin integrity Acute Z91.89 Estrada injury Acute S89.90XA Pressure ulcers of skin of multiple topographic sites Acute L89.90 Pressure ulcer caused by device Acute T85.898A, L89.90 Open ankle wound Acute S91.009A Pressure ulcer of right buttock, stage 2 Acute L89.312 Pressure ulcer Acute L89.90 Hearing loss Acute H91.90 Health skilled nursing, active care coordination Acute Z78.9 Pressure ulcer of ankle Acute L89.509 Pre-ulcerative corn or callous Acute L84 Injury of nail bed of toe Acute S99.929A Dysphagia Acute R13.10 Advanced care planning/counseling discussion Acute Z71.89 Wheelchair dependent Acute Z99.3 Grieving Chronic F43.21 Osteopenia of spine Acute M85.88 Central sleep apnea Acute G47.31 Mixed sleep apnea Acute G47.39 Hypercapnia with mixed acid-base disorder Acute E87.4 Neck muscle strain Acute S16.1XXA Claw hand of right upper extremity Acute M21.511 Trigger finger, left middle finger Acute M65.332 Trigger thumb, left thumb Acute M65.312 Right-sided muscle weakness Acute M62.81 Metacarpophalangeal joint pain Chronic M25.549 Hand pain Acute M79.643 Injury of little finger Acute S69.90XA Pain of left middle finger Acute M79.645 Leg pain, bilateral Acute M79.604, M79.605 Spasticity Acute R25.2 Leg edema Chronic 09/2018 R60.0 Osteopenia Acute 10/11/14 M85.80 Nonsustained paroxysmal supraventricular tachycardia Acute I47.1 Neurogenic bladder Chronic N31.9 Hypertension Chronic I10 Multiple sclerosis Chronic G35 Urinary catheter in place Chronic Z92.89 Medical History Medical History 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 Buckley Neurogenic bowel Colostomy care [place] [facility] [place] Found on U/S, post UTI .. hospitalized 05/13/[address] .. [address] Cancino. CT completed to reveal right stone burdern. Memory loss Palliative care encounter Right shoulder injury Pulled mm during transfer (?) H/O squamous cell carcinoma 10/21/21 Dr Catarino Menjivar C&D of L forehead lesion TIA (transient ischemic attack) (08/2018) CT (NEG) Tingling face, numb in left arm... Obesity (BMI 30.0-34.9) Wound of right buttock (04/09/17) [place] [facility] [place] punch biopsy for wart 11/30/16 Dr Toribio. veruca vulgaris 09/09/17 wound still [place] [facility] [place] 09/23/17 non healing right ischia wound. HH providing in home care 01/12/18 ov at [facility] [place] [facility]. still managed there. has home health to do drsg changes q3 days and prn. next wound f/u ov is 02/07/2018 at [facility] [place]. [place]22[place] [place]in [place] that communicates w/original 11/2016 wound-sent to Plastics to schedule I&D 03/18/18 [facility] [place] [facility] [facility] - Continued right groin wound. Cont dressing. Scheduled for I&D Dr. Gutierrez 03/23/18. 03/23/18: [facility] [place] and [place]. Has Home health. doing drsg changes Q 3days/prn per [facility] [place] note dated (03/30/18) next f/u ov there 04/13/18. Neuropathic pain (11/04/16) left leg, great toe to hip; gabapentin caused excessive edema Benign neoplasm of colon (11/10/11) Sepsis Ambulatory dysfunction Toxic metabolic encephalopathy Non-pressure chronic ulcer of buttock with fat layer exposed 04/27/18 [place] [place] [facility] [place] OV 11/16/18. RTC 7-10days Non-pressure chronic ulcer of right lower leg with fat layer exposed 04/27/18 [facility] [facility] [place] 2016. Ischial/groin I&D 03/23/18 after 2 wounds were found to communicate with each other. Packing was found in wounds. whicch is ? to be the reason for non-healing Tubular adenoma 08/02/2005 Surgical History Surgical History S/P colectomy (~09/2023) Lap sigmoid 09/10/23 S/P cataract extraction Suprapubic catheter and vaginal sling 2011 S/P ureteral stent placement (09/16/18) Cervical rib s/p excision 1974 Hx of colonoscopy with polypectomy incision and drainage (03/23/18) [facility] [place] debrid[place] of chronic ischial/groin wound after wart removal; 11/2016. Tobacco Smoking/Tobacco Use Status: Never Passive smoking exposure: No Alcohol Alcohol Intake: never Substance Use Substance use: Never Substance use type: does not use Counseling provided: none Vital Signs and Lab Results Vital Signs Most Recent Vital Signs in EMR: Most Recent Vital Signs Temp Pulse Resp BP Pulse Ox 36.7 C 70 18 116/74 96 07/20/24 07:31 07/20/24 07:31 07/20/24 07:31 07/20/24 07:31 07/20/24 07:31 Lab Results Blood Type / Crossmatch: No Data to Display Complete Blood Count: No Data to Display Complete Metabolic Panel: No Data to Display Liver Function Panel: No Data to Display Coagulation Panel: No Data to Display Cardiac Panel: No Data to Display Arterial Blood Gas: No Data to Display Venous Blood Gas: No Data to Display Pancreas Panel: No Data to Display Thyroid Panel: No Data to Display Infectious Disease: No Data to Display Blood Cultures: No Data to Display Toxicology Panel: No Data to Display Imaging and Studies Imaging and Studies Study information below may be from another EMR and interpreted by another provider. Please see original notes in EMR for more complete details. Pulmonary Function Summary: Pulmonary Function Test PATIENT NAME: Eva Bonilla UNIT #: [id number] ADMITTING PROVIDER: Ewa Hamilton M.D. PRIMARY CARE PROVIDER: NOEL JIMENEZ DO DATE OF ADMIT: 08/05/21 : 1940 Date of service: 08/05/21 Time of Service: 14:44 Pulmonary Function Test Result Requesting Provider Joy Indications: Multiple Sclerosis Interpretation Spirometry: Normal muscle pressures Impression Normal muscle pressures Clinical Correlation therefore is recommended. cc: Dictated by: EWA HAMILTON MD Dictated: 08/06/21 Time: 1230 <Electronically signed by Ewa Hamilton M.D.> Date: 08/06/21 1231 Date: Date: Transcribed Date: 08/06/21 Transcribed Time: 1230 By: JACINTO Anesthesia Assessment and Plan Anesthesia History Personal History: No History of Anesthesia Complications Family History: No Family History of Anesthesia Complications Exercise Tolerance Exercise Tolerance: Metabolic Equivalents<4 Pertinent Negatives Pertinent Negatives: No Symptoms of GERD, No Major Cardiovascular Symptoms or Complaints and No Major Pulmonary Symptoms or Complaints Cardiac & Pulmonary Exam Cardiac Exam: Normal S1/S2 Heart Sounds Pulmonary Exam: Clear Bilateral Breath Sounds Implantable Cardiac Device Does patient have a Pacemaker or an ICD?: No Airway Exam Known Difficult Airway: No Mallampati Class: 3 Mouth Opening: Normal (> 3cm) Thyromental Distance: Greater than 3 cm Neck Range of Motion: Full ROM Neck Circumference: Normal Teeth Condition: Removable Dentures/Plates Upper and Removable Dentures/Plates Lower ASA Classification ASA Score: ASA 3 Emergency Case?: No NPO Status NPO Status: NPO Clears >2 hours, Solids >8 hours Anesthesia Plan Resuscitation Status: Full Code Anesthesia Technique: General Anesthesia Airway Planned: Natural Airway Monitors Used: Standard Monitors Preoperative Comments:: History of: Dysphagia, central/mixed sleep apnea, MS (Rt greater than Lft weakness), HTN, memory loss, TIA
[2024-07-20 09:09] VITALS: BMI 27.4
--- NOTE | 2024-07-20 09:11 | W.PM.HP.N ---
Date of service: 07/20/24 Time of Service: 09:31 Assessment and Plan Assessment and plan (1) Incontinence in female: Status: Acute (2) Neurogenic bladder: Status: Chronic Assessment and plan: We will attempt to paralyze her bladder by injecting Botox into the detrusor muscle. We will also attempt to bulk up the urethral meatus further with an injection of a bulking agent. History of Present Illness History of Present Illness Chief Complaint: Neurogenic bladder Narrative: This is an 84-year-old woman who has a neurogenic bladder due to multiple sclerosis. She had a mid urethral sling placed to help close the urethra and a suprapubic tube was placed. This was done over at the [facility] many years ago for her underlying urinary incontinence. The patient now has had recurrent incontinence through her urethra. He is not able to tolerate anticholinergic medications. She is on a maximal dose of beta 3 agonists. She presents now for a cystoscopy with injection of Botox into the detrusor muscle. We will also inject a bulking agent at the bladder neck. Review of Systems Narrative: No fevers or chills No vision change or dysphasia No diabetes or thyroid No shortness of breath, cough or hemoptysis No chest pain or palpitations No nausea, vomiting, hepatitis, ulcers, jaundice, diarrhea or constipation MS. No seizures or strokes No bleeding disorders or anemia No gout PFSH All Active Problems Incontinence in female (Acute) despite suprapubic cath; urin leakage thru uethra Wound of buttock (Acute) At risk for impaired skin integrity (Acute) Estrada injury (Acute) Pressure ulcers of skin of multiple topographic sites (Acute) 3: rt ankle (returned), buttock, sacral(?) Pressure ulcer caused by device (Acute) Open ankle wound (Acute) RT, Hx HH care, but seems debriding needed .. & press-support mattress! Pressure ulcer of right buttock, stage 2 (Acute) Pressure ulcer (Acute) Hearing loss (Acute) may be interested in hearing aids Health fdc, active care coordination (Acute) Pressure ulcer of ankle (Acute) stage 3 Pre-ulcerative corn or callous (Acute) rt outer toe Injury of nail bed of toe (Acute) Recurring, black, sensitive with Hx injury in childhood . Hx lost toe nail++ Dysphagia (Acute) Advanced care planning/counseling discussion (Acute) Wheelchair dependent (Acute) Grieving (Chronic) Osteopenia of spine (Acute) per DEXA (2014, 2008) .. Medicare needs the M85.88 (vs just the M85.80) Central sleep apnea (Acute) Mixed sleep apnea (Acute) Hypercapnia with mixed acid-base disorder (Acute) Neck muscle strain (Acute) Rt, possible SCM mm spasm, [ ] PT Claw hand of right upper extremity (Acute) Trigger finger, left middle finger (Acute) Trigger thumb, left thumb (Acute) Right-sided muscle weakness (Acute) Hx MS with R>L effected more ... Active daily, with chores, stretching, hobbies.. [ ] band/weight work? Metacarpophalangeal joint pain (Chronic) Joint space narrowing, subchondral sclerosis, periarticular spurring per XR (04/01/21) Hand pain (Acute) lft swelling, rt pinky contracted.. [ ] PT, Naproxen Injury of little finger (Acute) Pain of left middle finger (Acute) Leg pain, bilateral (Acute) Aches, cramps (joel horses, L>R), weakness ... presuming 2' MS, but appreciate re-evaluation. 03/2021 Spasticity (Acute) Leg edema (Chronic 09/2018) Hx LE edema, but exercise and elevation had managed most of the swelling. Recent worsening seems 2' lack of exercise (due to offloading of sacral/buttock wound) and serious nephrolith. Swelling may be compounded by kidney infection, bleed and ABx. Responding well to 40mg --> manage with lasix and monitor Cr/K for now. Trial tubi-package delivery room service runner and ankle rolls as well.... 10/19/18, ik Significantly better after stopping gabapentin 11/2018. Osteopenia (Acute 10/11/14) left hip T score -1.5 Nonsustained paroxysmal supraventricular tachycardia (Acute) Neurogenic bladder (Chronic) due to multiple sclerosis; requires suprapubic catheter Note: [facility] sugggests staying at newly placed 18FR catheter. 10/05/18, ik Hypertension (Chronic) 09/12/2007, well-managed, 05/2018, [place] Multiple sclerosis (Chronic) 08/01/[address] (Chronic) Sees UROL q 6-8 weeks. 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 Buckley Neurogenic bowel Colostomy care Nephrolithiasis D/[place] [facility] [place], s/p renal Found on U/S, post UTI .. hospitalized 05/13/[address] .. followed by Dr[address] Cancino. CT completed to reveal right stone burdern. Memory loss Palliative care encounter Right shoulder injury Pulled mm during transfer (?) H/O squamous cell carcinoma 10/21/21 Dr Catarino Menjivar C&D of L forehead lesion TIA (transient ischemic attack) (08/2018) CT (NEG) Tingling face, numb in left arm... Obesity (BMI 30.0-34.9) Wound of right buttock (04/09/17) managed by wound service [facility], following punch biopsy for wart 11/30/16 Dr Toribio. veruca vulgaris 09/09/17 wound still managed by [facility]. 09/23/17 non healing right ischia wound. HH providing in home care 01/12/18 [place] [facility] [place] still managed there. has home health to do drsg changes q3 days and prn. next wound f/[place] 02/07/[place] [facility] [place]. 02/22/18-[facility] [place]new [place] groin wound that communicates w/original 11/2016 wound-sent to Plastics to schedule I&D 03/18/18 [facility] - Continued right groin wound. Cont dressing. Scheduled for I&D Dr. Gutierrez 03/23/18. 03/23/18: [facility] [place] for I and D. Has Home health. doing drsg changes Q 3days/pr[place] [facility] [place] dated (03/30/18) next f/u ov there 04/13/18. Neuropathic pain (11/04/16) left leg, great toe to hip; gabapentin caused excessive edema Benign neoplasm of colon (11/10/11) Sepsis Ambulatory dysfunction Toxic metabolic encephalopathy Non-pressure chronic ulcer of buttock with fat layer exposed 04/27/18 [facility] Last OV 11/16/18. RTC 7-10days Non-pressure chronic ulcer of right lower leg with fat layer exposed 04/27/18 [facility] Wart removal 2016. Ischial/groin I&D 03/23/18 after 2 wounds were found to communicate with each other. Packing was found in wounds. whicch is ? to be the reason for non-healing Tubular adenoma 08/02/2005 Surgical History S/P colectomy (~09/2023) Lap sigmoid 09/10/23 S/P cataract extraction Suprapubic catheter and vaginal sling 2011 S/P ureteral stent placement (09/16/18) Cervical rib s/p excision 1973 Hx of colonoscopy with polypectomy incision and drainage (03/23/18) [facility] [place]wound debridement of chronic ischial/groin wound after wart removal; 11/2016. Family History Mother , CHF at age 87. 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[place] [facility] What is your relationship status?: Panel score (0-1 are the most socially isolated patients): 1 Frequency: 3-4 times per week Seatbelt use: always Water heater temp set <120 deg: Yes Working smoke detector in home: Yes Fire extinguisher in home: Yes Carbon monox detector in home: Yes Firearms in home: Yes Meds Allergies and Home Medications Allergies Allergy/AdvReac Type Severity Reaction Status Date / Time lisinopril AdvReac Severe cough/wheez Verified 07/20/24 07:28 ing Iodine and Iodide Containing AdvReac Intermediate redness Verified 07/20/24 07:28 Produc pregabalin (From Lyrica) AdvReac whoosy Verified 07/20/24 07:28 reported 04/2017 iodine Allergy Skin Rash Uncoded 07/20/24 07:28 Home Medications ?Medication ?Instructions ?Recorded ?Confirmed ?Type aspirin 325 mg tablet 325 mg PO DAILY 12/17/22 07/18/24 History sheepskin booties #1 ea 09/16/23 07/09/24 Rx docusate sodium 100 mg capsule 100 mg PO DAILY 10/28/23 07/20/24 History (Colace) Adjustable Hospital Bed #1 ea 11/03/23 07/09/24 Rx Motorized Wheelchair #1 ea 11/03/23 07/09/24 Rx Trapeze #1 ea 11/03/23 07/09/24 Rx baclofen 20 mg tablet 30 mg (1.5 x 20 mg) PO TID #405 05/03/24 07/20/24 Rx tabs duloxetine 20 mg capsule,delayed 20 mg PO BID #180 caps 05/03/24 07/20/24 Rx release pravastatin 20 mg tablet 20 mg PO HS #90 tabs 05/03/24 07/20/24 Rx mirabegron 50 mg tablet,extended 50 mg PO DAILY #5 tabs 06/07/24 07/20/24 Rx release 24 hr (Myrbetriq) Air Mattress #1 ea 06/21/24 07/09/24 Rx furosemide 20 mg tablet 20 mg PO BID #180 tabs 07/18/24 07/20/24 Rx Exam Neck Neck: supple Resp Effort & Inspection: normal respiratory effort Auscultation: clear to auscultation bilaterally Cardio Rate: regular rate Rhythm: regular rhythm GI Palpation: soft and other (suprapubic tube in place) Neuro General: patient alert, patient awake and patient oriented x3 Results Last Vital Signs Temp 36.7 C 07/20/24 07:31 Pulse 70 07/20/24 07:31 Resp 18 07/20/24 07:31 BP 116/74 07/20/24 07:31 Pulse Ox 96 07/20/24 07:31 Time Spent Time spent with Patient: <40 minutes Time was spent: other
[2024-07-20] MEDS: cefTRIAXone 1 GM/50 ML BAG IVPB (09:44)
[2024-07-20] MEDS: Lidocaine 2% Jelly 11 ML SYR (10:00)
--- NOTE | 2024-07-20 10:11 | W.PM.DSUDISC ---
Date of service: 07/20/24 Discharge Plan Disposition Patient Disposition: Home Discharge Details Reason For Visit: cystoscopy Attending Provider: Jose Martin Cancino Primary Care Provider: Opal Dejesus Home Meds and New Rx's Prescriptions: No Action (DME) sheepskin booties See Rx Instructions .Route .MEDSUPPLY Qty: 1 1RF Rx Instructions: SHeepskin booties to help heal and prevent pressure ulcers, b/l (but rt >>l) (DME) Motorized Wheelchair See Rx Instructions .Route .MEDSUPPLY Qty: 1 0RF Rx Instructions: For daily use (DME) Adjustable Hospital Bed See Rx Instructions .Route .MEDSUPPLY Qty: 1 0RF Rx Instructions: As directed (DME) Trapeze See Rx Instructions .Route .MEDSUPPLY Qty: 1 1RF Rx Instructions: Daily, Overnight Use baclofen 20 mg tablet 30 mg PO TID Qty: 405 3RF duloxetine 20 mg capsule,delayed release(DR/EC) 20 mg PO BID Qty: 180 3RF pravastatin 20 mg tablet 20 mg PO HS Qty: 90 4RF (DME) Air Mattress See Rx Instructions .Route .MEDSUPPLY Qty: 1 0RF Rx Instructions: As best dispensed - to fit existing hospital bed mirabegron [Myrbetriq] 50 mg tablet extended release 24 hr 50 mg PO DAILY Qty: 5 0RF furosemide 20 mg tablet 20 mg PO BID Qty: 180 3RF docusate sodium [Colace] 100 mg capsule 100 mg PO DAILY aspirin 325 mg Tablet 325 mg PO DAILY Discharge Instructions Additional Instructions: No appointment needed, but call @ 1 week to give symptom update Activity:: Activity as Tolerated Shower/Bathe:: 24 hours Diet:: As Tolerated Discharge Orders Discharge Orders: Discharge Order (Routine); Ordered 07/20/24 Ordered By: Jose Martin Cancino DS: Diagnosis Discharge Diagnosis (1) Incontinence in female: Status: Acute (2) Neurogenic bladder: Status: Chronic
--- NOTE | 2024-07-20 10:15 | W.PM.OP ---
Operative Note Operative Note PRE-OP DIAGNOSIS: neurogenic bladder POST-OP DIAGNOSIS: same PROCEDURE: cystoscopy, injection of Botox into detrusor muscle, injection of Coaptite at bladder neck, change suprapubic catheter SURGEON: Jose Martin Cancino ANESTHESIA TYPE: Local By Surgeon and General:No Airway Refer to Anesthesia Record ESTIMATED BLOOD LOSS: 5 PATHOLOGY: none sent COMPLICATIONS: None Patient was transported to: same day Patient's condition: stable Implants: 18 Congolese suprapubic catheter Indications: This is an 84-year-old woman who has a history of a neurogenic bladder related to multiple sclerosis. She has a long history of urinary incontinence that was treated with placement of a bladder neck sling to close the urethra and placement of a suprapubic tube. She has been having worsening leakage through her urethra. The leakage is made skin care rather difficult. She is already on a maximum dose of beta 3 agonist. She is not able to tolerate anticholinergics. She presents now for an injection of Botox into the detrusor muscle and bulking agent at the bladder neck. Findings: open bladder neck Procedure Description: The patient was brought to the operating room on 07/20/2024. After being given an IV dose of ceftriaxone, general anesthesia was induced. She was placed in low lithotomy position. Her indwelling suprapubic catheter balloon was deflated and the catheter was removed. Her suprapubic site and her genitalia were both prepped using Hibiclens. 2% Xylocaine jelly was instilled into the suprapubic tract and a 20 Congolese urethrotome sheath was passed through the suprapubic tract into the bladder. The bladder was inspected with the 30 degree lens. The bladder neck and proximal urethra appeared open at rest. Utilizing a side kick needle, we injected 2 vials of Coaptite at the bladder neck to cause visible closure. We then used the different side kick needle and injected 200 units of Botox into the detrusor muscle. We diluted the Botox and 20 mL of dilute and injected 1 mL in 20 different locations. The patient tolerated this procedure well with no complications. The scope was then removed and an 18 Congolese catheter was passed through the suprapubic tract into the bladder. The catheter balloon was inflated with 10 cc of sterile water and the catheter was hooked to gravity drainage. The patient tolerated the procedure well with no complications. Date of Procedure: 07/20/24
[2024-07-20 10:18] VITALS: BP 159/66; PULSE 66; RESP 16; TEMP 36; O2SAT 100
[2024-07-20 10:49] VITALS: BP 149/67; PULSE 68; RESP 18; TEMP 36.5; O2SAT 98
--- NOTE | 2024-07-20 13:03 | W.ANESPOSTOP ---
Postoperative Evaluation Date, Time and Location Date Performed: 07/20/24 Time Performed: 10:30 Patient Location: Day Surgery Unit Vital Signs Most Recent Imported Vital Signs: Most Recent Vital Signs Temp Pulse Resp BP Pulse Ox 36.5 C 68 18 149/67 H 98 07/20/24 10:49 07/20/24 10:49 07/20/24 10:49 07/20/24 10:49 07/20/24 10:49 Pain Score Most Recent Pain Score: Most Recent Pain Score Pain Level 0 07/20/24 10:49 Assessment Mental Status: Awake (Alert & Oriented to Patient Baseline) Airway and Respiratory Function: Patent airway with normal (patient baseline) respiratory exam Cardiovascular Function: Hemodynamically Stable Hydration Status: Adequately Hydrated Nausea & Vomiting: No Nausea or Vomiting Pain: Pt. Denies Any Pain Peripheral Nerve Block: Patient did not receive a nerve block
== END 2024-07-20 11:09 | disposition home or self-care (01) ==
PROVIDERS: PCP Student in an Organized Health Care Education/Training Program; Visit Provider Urology
PROC: (CPT 51705; principal; 2024-07-20 09:00)
DX: N31.9 Neuromuscular dysfunction of bladder, unspecified (principal); N39.498 Other specified urinary incontinence; G35 Multiple sclerosis
CPT/HCPCS: 51705; 51715; 52287; J0585; J0696; J2003; J2405; J2704; L8606

== ENCOUNTER → 2024-08-04 10:58 | Outpatient (BNVA) | payer MEDICARE, SELFPAY | PROVIDERS: PCP Student in an Organized Health Care Education/Training Program; Referring Provider Student in an Organized Health Care Education/Training Program; Visit Provider Physical Therapy Assistant | DX: S89.91XD Unspecified injury of right lower leg, subsequent encounter (principal); X58.XXXD Exposure to other specified factors, subsequent encounter | CPT/HCPCS: 97597 ==

== ENCOUNTER → 2024-08-18 13:01 | Outpatient (BNVA) | payer MEDICARE, SELFPAY | PROVIDERS: Visit Provider Physical Therapy Assistant | DX: S91.001A Unspecified open wound, right ankle, initial encounter (principal); X58.XXXA Exposure to other specified factors, initial encounter | CPT/HCPCS: 97597 ==

== ENCOUNTER 2024-09-06 22:12 | Outpatient (REF) | payer MEDICARE, SELFPAY ==
[2024-09-06 17:18] LABS: Bilirubin Negative (Negative); Blood Trace-intact (Negative); Clarity Turbid (Clear); Glucose Negative (Negative); Ketones Trace mg/dL (Negative); Leukocyte Esterase Large (Negative); Nitrite Positive (Negative); Specific Gravity 1.025 (1.005-1.025); Urobilinogen 0.2 mg/dL (Up to 0.2)
[2024-09-06 17:25] LABS: Bacteria Many HPF (Negative); Epithelial Cells Many HPF (Negative); WBC 20-50 HPF (0-5)
[2024-09-06 17:26] LABS: C & S Indicated? C&S Done As Ordered; Crystals Rare Calcium Oxalate HPF (Negative); Mucus Trace (Negative)
== END 2024-09-06 22:13 | disposition home or self-care (01) ==
LOC: LBN 22:12
PROVIDERS: Visit Provider Nurse Practitioner Family
DX: R41.0 Disorientation, unspecified (principal); Z87.440 Personal history of urinary (tract) infections; N31.9 Neuromuscular dysfunction of bladder, unspecified
CPT/HCPCS: 87077; 81003; 81015; 87086; 87186

== ENCOUNTER → 2024-09-07 09:26 | Outpatient (BNVA) | payer MEDICARE, SELFPAY | PROVIDERS: Visit Provider Psychiatry & Neurology Neurology | DX: G35 Multiple sclerosis (principal); N31.9 Neuromuscular dysfunction of bladder, unspecified; M79.2 Neuralgia and neuritis, unspecified; R25.2 Cramp and spasm; R13.10 Dysphagia, unspecified; R41.3 Other amnesia; G93.40 Encephalopathy, unspecified | CPT/HCPCS: 99215 ==

== ENCOUNTER → 2024-11-02 12:58 | Outpatient (BNVA) | payer MEDICARE, SELFPAY | PROVIDERS: Visit Provider Psychiatry & Neurology Neurology | DX: G35 Multiple sclerosis (principal); N31.9 Neuromuscular dysfunction of bladder, unspecified; M79.2 Neuralgia and neuritis, unspecified; R25.2 Cramp and spasm; R13.10 Dysphagia, unspecified; R41.3 Other amnesia; G93.40 Encephalopathy, unspecified | CPT/HCPCS: 99214 ==

== ENCOUNTER 2025-05-30 01:59 | Outpatient (CLI) | payer MEDICARE, SELFPAY ==
[2025-05-30 12:10] LABS: Creatine Kinase 48 U/L (26-192)
[2025-05-30 12:29] LABS: ALT 15 U/L (14-59); AST 17 U/L (15-37); Albumin 3.6 g/dL (3.4-5.0); Alkaline Phosphatase 129 U/L (46-116); Anion Gap 8.2 mmol/L (3-11); BUN 10 mg/dL (7-18); Bilirubin, Total 0.4 mg/dL (0.2-1.0); CO2 32.8 mmol/L (21.0-32.0); Calcium 9.1 mg/dL (8.5-10.1); Chloride 102 mmol/L (98-107); Estimated GFR 88.45 (mL/min/1.73m2); Glucose 80 mg/dL (74-106); Potassium 3.4 mmol/L (3.5-5.1); Sodium 143 mmol/L (136-145); TSH (W/Ref FT4) 2.25 uIU/mL (0.36-3.74); Total Protein 7.6 g/dL (6.4-8.2)
[2025-05-30 12:43] LABS: Calculated LDL 123 mg/dL (<100); Cholesterol 215 mg/dL (<200); HDL Cholesterol 69 mg/dL (>or=50); Triglyceride 117 mg/dL (<150)
== END 2025-05-30 02:00 | disposition home or self-care (01) ==
LOC: LBO 01:59
PROVIDERS: PCP Nurse Practitioner Family; Visit Provider Nurse Practitioner Family
DX: I10 Essential (primary) hypertension (principal)
CPT/HCPCS: 36415; 80053; 80061; 82550; 84443